=== PATIENT | female | born 1950 | race Caucasian/White ===

== ENCOUNTER 2018-03-22 14:14 | Inpatient (IN) | payer MEDICARE, OTHER ==
[~2018-03-22] VITALS: Ht 157.5 cm; Wt 79.4 kg
[2018-03-22] MEDS ORDERED: VANCOMYCIN IV 200 ML ONE (14:45)
[2018-03-22] MEDS ORDERED: GENTAMICIN SULFATE 80 MG/2 ML VIAL ONE (14:45)
[2018-03-22] MEDS ORDERED: VANCOMYCIN IV 1,000 MG in IV DEXTROSE 5% 250 ML IV ONE (14:45)
[2018-03-22] MEDS ORDERED: GENTAMICIN SULFATE INJ 80 MG in IV DEXTROSE 5% 100 ML IV ONE (14:45)
[2018-03-22] MEDS ORDERED: TOPAMAX PO (15:03)
[2018-03-22] MEDS ORDERED: CALCIUM (15:03)
[2018-03-22] MEDS ORDERED: SERT50TA14 PO (15:03)
[2018-03-22] MEDS ORDERED: CALCITRIOL PO (15:03)
[2018-03-22] MEDS ORDERED: LOMOTIL (15:03)
[2018-03-22] MEDS ORDERED: CROMOLYN SODIUM 4% (15:03)
[2018-03-22] MEDS ORDERED: SYNTHROID PO (15:03)
[2018-03-22] MEDS ORDERED: PEPCID PO (15:03)
[2018-03-22] MEDS ORDERED: QUET25TA3 PO (15:03)
[2018-03-22] MEDS ORDERED: ELIQUIS PO (15:03)
[2018-03-22] MEDS ORDERED: CARBIDOPA/LEVODOPA PO (15:03)
[2018-03-22] MEDS ORDERED: CALCIUM CARBONATE PO (15:03)
[2018-03-22] MEDS ORDERED: POTASSIUM PO (15:03)
[2018-03-22] MEDS ORDERED: MIRAPEX PO (15:03)
[2018-03-22] MEDS ORDERED: ZOCOR PO (15:03)
[2018-03-22] MEDS ORDERED: TOPROL XL PO (15:03)
[2018-03-22] MEDS ORDERED: ABILIFY PO (15:03)
[2018-03-22 15:21] LABS: BASOPHILS # (AUTO) 0.1 K/uL (0.0-8.0); BASOPHILS % (AUTO) 0.7 % (0.0-2.0); EOSINOPHILS # (AUTO) 0.1 K/uL (0.0-0.7); EOSINOPHILS % (AUTO) 0.8 % (0.0-7.0); HEMATOCRIT 35.3 % (31.2-41.9); HEMOGLOBIN 11.8 g/dL (10.9-14.3); LYMPHOCYTES # (AUTO) 2.4 K/uL (20.0-40.0); LYMPHOCYTES % (AUTO) 26.6 % (20.5-51.5); MEAN CORPUSCULAR HEMOGLOBIN 29.4 uug (24.7-32.8); MEAN CORPUSCULAR HGB CONC 33 g/dL (32.3-35.6); MEAN CORPUSCULAR VOLUME 88.2 fL (75.5-95.3); MONOCYTES # (AUTO) 0.8 K/uL (2.0-10.0); MONOCYTES % (AUTO) 9.3 % (0.0-11.0); NEUTROPHILS # (AUTO) 5.7 K/uL (1.8-8.9); NEUTROPHILS % (AUTO) 62.6 % (38.5-71.5); PLATELET COUNT (AUTO) 303 K/uL (179-408); WHITE BLOOD COUNT (AUTO) 9.1 K/uL (3.8-11.8)
[2018-03-22 15:27] LABS: CREATININE 0.9 mg/dL (0.6-1.3); POTASSIUM 3.6 mmol/L (3.5-5.1)
--- NOTE | 2018-03-22 16:40 | NUR ---
Pt trans to m/s floor, NAD noted.
[2018-03-22 16:46] VITALS: BP 114/46
--- NOTE | 2018-03-22 17:23 | NUR ---
67 YEAR OLD FEMALE RECEIVED FROM ER VIA WHEEL CHAIR FOR LEFT EAR CELLULITIS .PT IS [id number] ,SON IS AT BED SIDE CALL LIGHT WITH IN REACH .V/S ARE STABLE , CALLED FOR ADMISSION ORDERS
[2018-03-22] MEDS ORDERED: ONDANSETRON 4 MG/2 ML VIAL IV PRN (18:30)
[2018-03-22] MEDS ORDERED: MAGNESIUM HYDROXIDE 30 ML LIQUID UDC PO PRN (18:30)
--- NOTE | 2018-03-22 18:42 | NUR ---
CLINICAL PHARMACY NOTE:VANCOMYCIN DOSING Request for vancomycin dosing on 67 y/o female 157.48 CM 79.28kg for cellulitis (swelling of left ear) Temp 98.4 BUN 19 Scr 0.9 WBC 9.1 Start Vancomycin 1250mg IVPB q24h estimated trough 12.85. Will order trough prior to 4th dose. Will continue to monitor.
--- NOTE | 2018-03-22 19:20 | NUR ---
RECEIVED PT AWAKE, ALERT AND ORIENTEDX3. PT SHOWS NO SIGNS OF DISTRESS. SON AT BEDSIDE. IV INTACT AND PATENT. SAFETY AND COMFORT PROVIDED. WILL CONTINUE TO MONITOR.
[2018-03-22] MEDS: IV NS 1000 ML 1,000 ML IV PRN (19:49)
[2018-03-22] MEDS: VANCOMYCIN IV 1,250 MG in IV DEXTROSE 5% 500 ML IV SCH (19:49)
[2018-03-22 20:09] VITALS: BP 112/64
[2018-03-22] MEDS ORDERED: ENOXAPARIN SODIUM 40 MG/0.4 ML DISP.SYRIN SQ SCH (21:00)
[2018-03-22] MEDS: ACETAMINOPHEN 325 MG TABLET PO PRN (21:03)
[2018-03-22] MEDS: ZOLPIDEM 5 MG TABLET PO PRN (21:34)
[2018-03-23 04:54] VITALS: BP 111/57
--- NOTE | 2018-03-23 06:18 | NUR ---
PT SLEPT THROUGHOUT THE SHIFT . PRESCRIBED MEDICATION GIVEN AND PT TOLERATED IT WELL. SAFETY AND COMFORT PROVIDED. MEDICATION OF THE PT SENT TO PHARMACY FOR VERIFICATION. ALL NEEDS ARE MET.WILL ENDORSE TO DAYSHIFT NURSE FOR CONTINUITY OF CARE.
[2018-03-23 06:33] LABS: CREATININE 0.9 mg/dL (0.6-1.3); MAGNESIUM 1.7 mg/dL (1.8-2.4); PHOSPHOROUS 4.1 mg/dL (2.5-4.9); POTASSIUM 2.9 mmol/L (3.5-5.1)
[2018-03-23 07:33] LABS: BASOPHILS # (AUTO) 0.1 K/uL (0.0-8.0); BASOPHILS % (AUTO) 0.8 % (0.0-2.0); EOSINOPHILS # (AUTO) 0.1 K/uL (0.0-0.7); EOSINOPHILS % (AUTO) 1.5 % (0.0-7.0); HEMATOCRIT 33.2 % (31.2-41.9); HEMOGLOBIN 11.2 g/dL (10.9-14.3); LYMPHOCYTES # (AUTO) 2.6 K/uL (20.0-40.0); LYMPHOCYTES % (AUTO) 35.5 % (20.5-51.5); MEAN CORPUSCULAR HEMOGLOBIN 29.5 uug (24.7-32.8); MEAN CORPUSCULAR HGB CONC 34 g/dL (32.3-35.6); MEAN CORPUSCULAR VOLUME 87.6 fL (75.5-95.3); MONOCYTES # (AUTO) 0.6 K/uL (2.0-10.0); MONOCYTES % (AUTO) 8.9 % (0.0-11.0); NEUTROPHILS # (AUTO) 3.9 K/uL (1.8-8.9); NEUTROPHILS % (AUTO) 53.3 % (38.5-71.5); PLATELET COUNT (AUTO) 260 K/uL (179-408); RED BLOOD CELL COUNT(AUTO) 3.79 MIL/uL (3.63-4.92); WHITE BLOOD COUNT (AUTO) 7.2 K/uL (3.8-11.8)
--- NOTE | 2018-03-23 09:24 | NUR ---
Clinical pharmacy note-Vancomycin dosing per pharmacy Subjective: To continue Vancomycin dosing on this 67 yo female patient for suspected infection (left ear swelling) Objective: BUN 14 scr 0.9 WBC 9.1 (03/22) Temp 97.5 Ht 157.5cm Wt 79.4kg Assessment/Plan: Will continue same dose of vancomycin 1250mg IVPB q24h for today. 2nd dose due tonight at 1999. Will monitor renal function & adjust the dose if needed. Will follow daily.
[2018-03-23] MEDS ORDERED: POTASSIUM CHLORIDE 20 MEQ TAB.PRT.SR PO ONE (09:30)
[2018-03-23] MEDS ORDERED: APIXABAN 5 MG TABLET PO ONE (10:00)
[2018-03-23] MEDS ORDERED: LEVO200T9 PO (11:42)
[2018-03-23] MEDS ORDERED: POTA10TA15 PO (11:44)
[2018-03-23] MEDS ORDERED: SERT100T PO (11:45)
[2018-03-23 11:49] VITALS: BP 125/55
[2018-03-23] MEDS ORDERED: QUET100T PO (11:49)
[2018-03-23] MEDS ORDERED: QUET50TA PO (11:50)
[2018-03-23] MEDS ORDERED: SIMV40TA5 PO (11:51)
[2018-03-23] MEDS ORDERED: CARB1CAP3 PO (11:55)
[2018-03-23] MEDS ORDERED: FAMO20TA8 PO (11:57)
[2018-03-23] MEDS ORDERED: METO50TA7 PO (11:59)
[2018-03-23] MEDS ORDERED: CALC0.5C11 PO (12:00)
[2018-03-23] MEDS ORDERED: TOPI50TA PO (12:01)
[2018-03-23] MEDS ORDERED: PRAM1TAB7 PO (12:03)
[2018-03-23] MEDS ORDERED: ARIP10TA9 PO (12:04)
[2018-03-23] MEDS ORDERED: APIX5TAB PO (12:05)
[2018-03-23] MEDS ORDERED: CALC1TAB30 PO (12:10)
[2018-03-23] MEDS ORDERED: MAGNESIUM OXIDE 400 MG TABLET PO ONE (12:45)
[2018-03-23] MEDS ORDERED: VANCOMYCIN IV 1 G in PREMIXED 0 EACH IV SCH (14:00)
[2018-03-23] MEDS: IV NS 1000 ML 1,000 ML IV PRN (14:06)
[2018-03-23 15:57] VITALS: BP 125/84
[2018-03-23 19:00] VITALS: BP 110/63
[2018-03-23] MEDS: VANCOMYCIN IV 1,250 MG in IV DEXTROSE 5% 500 ML IV SCH (19:20)
--- NOTE | 2018-03-23 19:20 | NUR ---
RECEIVED PT AWAKE, ALERT, AND ORIENTEDX3. PT SHOWS NO SIGNS OF DISTRESS. IV INTACT AND PATENT. CALL LIGHT WITHIN REACH. SAFETY AND COMFORT PROVIDED. WILL CONTINUE TO MONITOR.
[2018-03-23] MEDS: ZOLPIDEM 5 MG TABLET PO PRN (22:04)
[2018-03-24 04:00] VITALS: BP 125/82
--- NOTE | 2018-03-24 06:13 | NUR ---
PT SLEPT THROUGHOUT THE SHIFT. PT SHOWS NO SIGNS OF DISTRESS. IV INTACT. PRESCRIBED MEDICATION GIVEN AND PT TOLERATED IT WELL. CALL LIGHT WITHIN REACH. SAFETY AND COMFORT PROVIDED.WILL ENDORSE ACCORDINGLY TO DAYSHIFT NURSE FOR CONTINUITY OF CARE.
[2018-03-24 06:38] LABS: CREATININE 0.7 mg/dL (0.6-1.3); MAGNESIUM 1.6 mg/dL (1.8-2.4); POTASSIUM 3.1 mmol/L (3.5-5.1)
[2018-03-24] MEDS ORDERED: POTASSIUM CHLORIDE 20 MEQ TAB.PRT.SR PO ONE (10:00)
[2018-03-24] MEDS ORDERED: HOME MED MISCELLANEOUS XX SCH (10:00)
[2018-03-24] MEDS ORDERED: SERTRALINE HCL 100 MG TABLET PO SCH (10:00)
[2018-03-24] MEDS: IV NS 1000 ML 1,000 ML IV PRN (10:22)
[2018-03-24] MEDS: PRAMIPEXOLE 1 MG TABLET PO SCH ×3 (11:03→16:23)
[2018-03-24] MEDS: FAMOTIDINE 20 MG TABLET PO SCH ×2 (11:04→16:23)
[2018-03-24] MEDS: RYTARY PO SCH ×2 (11:04→14:08)
[2018-03-24] MEDS: TOPIRAMATE 25 MG TABLET PO SCH ×2 (11:04→20:04)
[2018-03-24] MEDS: LEVOTHYROXINE SODIUM 200 MCG TABLET PO SCH (11:07)
[2018-03-24 11:52] VITALS: BP 101/55
[2018-03-24] MEDS: CALCIUM CARB/VITAMIN D 500MG-200UNITS TABLET PO SCH ×2 (12:11→16:23)
[2018-03-24] MEDS: LINEZOLID IV 600 MG in PREMIXED 1 EACH IV SCH (14:02)
[2018-03-24] MEDS: PIPERACILLIN/TAZOBACTAM/D5W 3.375 G in PREMIXED 1 EACH IV SCH ×2 (14:02→21:05)
[2018-03-24] MEDS: MAGNESIUM SULFATE/D5W 100 ML IV SCH ×2 (14:43→16:10)
[2018-03-24 16:00] VITALS: BP 101/56
--- NOTE | 2018-03-24 20:00 | NUR ---
Received pt sitting up in bed, alert and oriented x 2 with family at bedside, in no acute distress. Pt left ear appears to have swelling and redness, denies discomfort and difficulty hearing at this time. Safe environment implemented. Bed alarm on. Call light within reach.
[2018-03-24] MEDS: ARIPIPRAZOLE 10 MG TABLET PO SCH (20:03)
[2018-03-24] MEDS: SIMVASTATIN 40 MG TABLET PO SCH (20:04)
[2018-03-24] MEDS: QUETIAPINE FUMARATE 100 MG TABLET PO SCH (20:04)
[2018-03-24 20:18] VITALS: BP 93/49
[2018-03-25] MEDS: LINEZOLID IV 600 MG in PREMIXED 1 EACH IV SCH ×2 (00:29→12:50)
[2018-03-25] MEDS: ACETAMINOPHEN 325 MG TABLET PO PRN (04:20)
[2018-03-25] MEDS: RYTARY PO SCH ×3 (05:41→14:16)
[2018-03-25] MEDS: PIPERACILLIN/TAZOBACTAM/D5W 3.375 G in PREMIXED 1 EACH IV SCH ×3 (05:41→21:48)
[2018-03-25 06:07] LABS: BASOPHILS % (AUTO) 0.5 % (0.0-2.0); EOSINOPHILS # (AUTO) 0.1 K/uL (0.0-0.7); EOSINOPHILS % (AUTO) 1.5 % (0.0-7.0); HEMATOCRIT 30.6 % (31.2-41.9); HEMOGLOBIN 10.4 g/dL (10.9-14.3); LYMPHOCYTES # (AUTO) 2.1 K/uL (20.0-40.0); LYMPHOCYTES % (AUTO) 28.4 % (20.5-51.5); MEAN CORPUSCULAR HEMOGLOBIN 29.5 uug (24.7-32.8); MEAN CORPUSCULAR HGB CONC 34 g/dL (32.3-35.6); MEAN CORPUSCULAR VOLUME 86.5 fL (75.5-95.3); MONOCYTES # (AUTO) 0.6 K/uL (2.0-10.0); MONOCYTES % (AUTO) 8.6 % (0.0-11.0); NEUTROPHILS # (AUTO) 4.5 K/uL (1.8-8.9); PLATELET COUNT (AUTO) 241 K/uL (179-408); RED BLOOD CELL COUNT(AUTO) 3.54 MIL/uL (3.63-4.92); WHITE BLOOD COUNT (AUTO) 7.3 K/uL (3.8-11.8)
[2018-03-25 06:17] LABS: CREATININE 0.9 mg/dL (0.6-1.3); PHOSPHOROUS 3.7 mg/dL (2.5-4.9); POTASSIUM 2.9 mmol/L (3.5-5.1)
[2018-03-25] MEDS: LEVOTHYROXINE SODIUM 200 MCG TABLET PO SCH (06:51)
[2018-03-25 06:59] VITALS: BP 100/53
--- NOTE | 2018-03-25 07:26 | NUR ---
No changes throughout the night. Safe environment implemented. Call light within reach
[2018-03-25] MEDS: METOPROLOL SUCCINATE XL 50 MG TAB.SR.24H PO SCH (09:00)
[2018-03-25] MEDS: PRAMIPEXOLE 1 MG TABLET PO SCH ×3 (09:22→16:30)
[2018-03-25] MEDS: CALCIUM CARB/VITAMIN D 500MG-200UNITS TABLET PO SCH ×3 (09:22→16:30)
[2018-03-25] MEDS: FAMOTIDINE 20 MG TABLET PO SCH ×2 (09:22→16:30)
[2018-03-25] MEDS: TOPIRAMATE 25 MG TABLET PO SCH ×2 (10:10→20:46)
--- NOTE | 2018-03-25 10:51 | NUR ---
Patient is alert and sleepy during rounds. Potassium 2.9 lab result. BP sitting L-79/42 R- 69/37 lying 69/38. HAT LACER Rukhsana made aware, ordered 1k bolus of NS. IV site intact and patent. will continue monitor
[2018-03-25] MEDS ORDERED: IV NS 1000 ML 1,000 ML IV ONE (11:00)
[2018-03-25 11:09] VITALS: BP 75/42
[2018-03-25] MEDS ORDERED: POTASSIUM CHLORIDE 20 MEQ TAB.PRT.SR PO ONE ×2 (12:15→14:15)
--- NOTE | 2018-03-25 12:34 | NUR ---
Sindy Milian ordered potassium 60meq PO one time for potassium 2.9 lab value. will continue monitor
--- NOTE | 2018-03-25 13:15 | NUR ---
NEW ORDERS PER NEWSPAPER PHOTO EDITOR: STAT CT OF THE HEAD W/WO CONTRAST AND STAT CT OF THE NECK W/WO CONTRAST. DX: CELLULITIS OF THE FACE. CONSENT OBTAINED BY VADIM ORDAZ, LAB AWARE.
[2018-03-25 15:07] VITALS: BP 100/95
[2018-03-25] MEDS ORDERED: IOHEXOL 300MG/ML 100 ML INFUS..BTL ONE (15:30)
[2018-03-25] MEDS ORDERED: IV NORMAL SALINE 250 ML IV ONE (15:30)
[2018-03-25] MEDS ORDERED: NORMAL SALINE FLUSH 10 ML DISP.SYRIN ONE (15:30)
[2018-03-25] MEDS ORDERED: SWABABLE VALVE TRANSFER SET EA MC ONE (15:30)
[2018-03-25] MEDS: IV NS 1000 ML 1,000 ML IV PRN (17:44)
--- NOTE | 2018-03-25 17:44 | NUR ---
IV site right wrist infiltrated. Applied cold and warm compress to the site. Reinserted to left wrist, intact and patent. will continue monitor
--- NOTE | 2018-03-25 19:30 | NUR ---
RECEIVED PT AWAKE, ALERT AND ORIENTEDX3. PT SHOWS NO SIGNS OF DISTRESS. IV INTACT AND PATENT. CALL LIGHT WITHIN REACH. SAFETY AND COMFORT PROVIDED. WILL CONTINUE TO MONITOR.
[2018-03-25 20:39] VITALS: BP 105/65
[2018-03-25] MEDS: SIMVASTATIN 40 MG TABLET PO SCH (20:46)
[2018-03-25] MEDS: ARIPIPRAZOLE 10 MG TABLET PO SCH (20:46)
[2018-03-25] MEDS: QUETIAPINE FUMARATE 100 MG TABLET PO SCH (20:46)
[2018-03-25] MEDS: ZOLPIDEM 5 MG TABLET PO PRN (21:59)
[2018-03-26] MEDS: LINEZOLID IV 600 MG in PREMIXED 1 EACH IV SCH ×2 (00:21→13:30)
[2018-03-26 04:00] VITALS: BP 110/59
[2018-03-26] MEDS: PIPERACILLIN/TAZOBACTAM/D5W 3.375 G in PREMIXED 1 EACH IV SCH ×3 (05:01→21:20)
[2018-03-26] MEDS: RYTARY PO SCH ×3 (06:11→13:38)
[2018-03-26] MEDS: LEVOTHYROXINE SODIUM 200 MCG TABLET PO SCH (06:11)
--- NOTE | 2018-03-26 06:36 | NUR ---
PT SLEPT THROUGHOUT THE SHIFT. PT SHOWS NO SIGNS OF DISTRESS. IV INTACT AND PATENT.PRESCRIBED MEDICATION GIVEN AND PT TOLERATED IT WELL. SAFETY AND COMFORT PROVIDED. ALL NEEDS ARE MET. WILL ENDORSE ACCORDINGLY TO INCOMING NURSE FOR CONTINUITY OF CARE.
[2018-03-26 06:45] LABS: BASOPHILS % (AUTO) 0.6 % (0.0-2.0); EOSINOPHILS # (AUTO) 0.1 K/uL (0.0-0.7); EOSINOPHILS % (AUTO) 1.1 % (0.0-7.0); HEMATOCRIT 28.4 % (31.2-41.9); LYMPHOCYTES # (AUTO) 1.6 K/uL (20.0-40.0); LYMPHOCYTES % (AUTO) 20.1 % (20.5-51.5); MEAN CORPUSCULAR HEMOGLOBIN 29.8 uug (24.7-32.8); MEAN CORPUSCULAR HGB CONC 35 g/dL (32.3-35.6); MEAN CORPUSCULAR VOLUME 84.3 fL (75.5-95.3); MONOCYTES # (AUTO) 0.6 K/uL (2.0-10.0); MONOCYTES % (AUTO) 7.8 % (0.0-11.0); NEUTROPHILS # (AUTO) 5.6 K/uL (1.8-8.9); NEUTROPHILS % (AUTO) 70.4 % (38.5-71.5); PLATELET COUNT (AUTO) 252 K/uL (179-408); RED BLOOD CELL COUNT(AUTO) 3.37 MIL/uL (3.63-4.92); WHITE BLOOD COUNT (AUTO) 7.9 K/uL (3.8-11.8)
--- NOTE | 2018-03-26 07:15 | NUR ---
RN notes: Received patient in bed, awake, alert and oriented x2, in no acute distress. Denies chest pain or SOB. IV site on patent, IV fluids running at 60cc/hr. Fall precaution in place. Will continue to monitor
[2018-03-26 07:23] LABS: CREATININE 0.8 mg/dL (0.6-1.3); MAGNESIUM 1.6 mg/dL (1.8-2.4); PHOSPHOROUS 3.8 mg/dL (2.5-4.9); POTASSIUM 3.2 mmol/L (3.5-5.1)
--- NOTE | 2018-03-26 08:00 | NUR ---
RN notes: Received a call from JOSE Milian, patient was noted with Tachycardia at 129 at 0400. Upon assessment, patient is awake, alert and oriented x2, in no acute distress. Patient denies chest pain or SOB. History of A-fib noted. Bilateral hand grasps equal and strong. PERRLA. GA was rechedked manually via palpation at this time. Noted at 90bpm, radial pulse. Afebrile. Denies pain. Skin intact. Cellulitis noted on the left ear down to her side of neck. JOSE Milian made aware. Received new orders to transfer patient to Telemetry. CN made aware. equipment monitor phototypesetting was placed, noted with Rapid A-fib at 100-108 HR. Will continue to monitor
--- NOTE | 2018-03-26 08:00 | NUR ---
RN notes: Patient noted with elevated BP at 210/79 at this time. Patient is awake, alert and oriented x1, verbally responsive. Patient noted to be confused at baseline. Able to do ROM on all 4 extremities. Bilateral hand grasps equal and strong. PERRLA. Patient denies chest pain or SOB at this time. Speech is clear. JOSE Milian made aware. New orders received, noted and carried out. Will continue to monitor Addendum: 03/26/18 at 1409 by MARCY GRESHAM RN Wrong patient
[2018-03-26] MEDS ORDERED: POTASSIUM CHLORIDE 20 MEQ TAB.PRT.SR PO ONE (08:15)
[2018-03-26] MEDS: METOPROLOL SUCCINATE XL 50 MG TAB.SR.24H PO SCH (09:00)
[2018-03-26] MEDS: TOPIRAMATE 25 MG TABLET PO SCH ×2 (09:05→20:43)
[2018-03-26] MEDS: FAMOTIDINE 20 MG TABLET PO SCH ×2 (09:05→17:48)
[2018-03-26] MEDS: CALCIUM CARB/VITAMIN D 500MG-200UNITS TABLET PO SCH ×3 (09:05→17:49)
[2018-03-26] MEDS: PRAMIPEXOLE 1 MG TABLET PO SCH ×3 (09:05→17:48)
[2018-03-26] MEDS: MAGNESIUM SULFATE/D5W 100 ML IV SCH ×2 (10:52→11:59)
[2018-03-26 11:14] VITALS: BP 108/62
[2018-03-26 15:08] VITALS: BP 101/56
[2018-03-26] MEDS: IV NS 1000 ML 1,000 ML IV PRN (17:50)
--- NOTE | 2018-03-26 18:39 | NUR ---
RN notes: Patient is alert and oriented x2-3, forgetful, in no acute distress. Denies chest pain or SOB at this time. Turned and repositioned every 2 hours. Kept clean and dry. No acute change of condition noted. All needs attended and met. Will continue to monitor
--- NOTE | 2018-03-26 19:55 | NUR ---
RECEIVED PATIENT IN BED ALERT ORIENTED, NO SOB NO CHEST PAIN RYTHM RAPID AFIB MD AWARE WITH ORDER, PATIENT WITH LEFT EAR CELLULITIS, CONT ON PAIN MANAGEMENT, CALL LIGHT WITHIN REACH. CONT TO MONITOR.
[2018-03-26] MEDS: SIMVASTATIN 40 MG TABLET PO SCH (20:24)
[2018-03-26] MEDS: ARIPIPRAZOLE 10 MG TABLET PO SCH (20:24)
[2018-03-26] MEDS: QUETIAPINE FUMARATE 100 MG TABLET PO SCH (20:24)
[2018-03-26] MEDS: ACETAMINOPHEN 325 MG TABLET PO PRN (20:42)
[2018-03-26 21:05] VITALS: BP 134/62
--- NOTE | 2018-03-27 | NUR ---
PATIENT AWAKE, NO SOB NO CHEST PAIN, RYTHM AFIB FROM 90 TP 102, NO COMPLAIN OF PAIN, NO COMPLAIN OF INSOMNIA AT THIS TIME. CALL LIGHT WITHIN REACH.
[2018-03-27 00:47] VITALS: BP 102/62
[2018-03-27] MEDS: LINEZOLID IV 600 MG in PREMIXED 1 EACH IV SCH ×2 (00:47→12:29)
[2018-03-27 05:19] VITALS: BP 100/57
[2018-03-27] MEDS: RYTARY PO SCH ×3 (05:43→13:58)
[2018-03-27] MEDS: PIPERACILLIN/TAZOBACTAM/D5W 3.375 G in PREMIXED 1 EACH IV SCH ×3 (05:48→21:23)
[2018-03-27] MEDS: LEVOTHYROXINE SODIUM 200 MCG TABLET PO SCH (06:07)
[2018-03-27 06:29] LABS: CREATININE 0.9 mg/dL (0.6-1.3); MAGNESIUM 1.9 mg/dL (1.8-2.4); PHOSPHOROUS 5.2 mg/dL (2.5-4.9); POTASSIUM 3.3 mmol/L (3.5-5.1)
--- NOTE | 2018-03-27 06:51 | NUR ---
PATIENT SLEPT MOST OF THE NIGHT NO SOB NO CHEST PAIN, NO COMPLAIN OF PAIN, RHYTHM ATRIL FIB AT THIS TIME. TURN AND REPOSITION, KEPT COMFORTABLE, CALL LIGHT WITHIN REACH, LEFT EAR STILL SWOLLEN, KEPT OFF PRESSURE, CONT TO MONITOR.
[2018-03-27 07:09] LABS: BASOPHILS % (AUTO) 0.7 % (0.0-2.0); EOSINOPHILS # (AUTO) 0.1 K/uL (0.0-0.7); EOSINOPHILS % (AUTO) 2.1 % (0.0-7.0); HEMATOCRIT 31.2 % (31.2-41.9); HEMOGLOBIN 10.6 g/dL (10.9-14.3); LYMPHOCYTES # (AUTO) 1.7 K/uL (20.0-40.0); LYMPHOCYTES % (AUTO) 31.6 % (20.5-51.5); MEAN CORPUSCULAR HEMOGLOBIN 29.2 uug (24.7-32.8); MEAN CORPUSCULAR HGB CONC 34 g/dL (32.3-35.6); MEAN CORPUSCULAR VOLUME 85.9 fL (75.5-95.3); MONOCYTES # (AUTO) 0.5 K/uL (2.0-10.0); MONOCYTES % (AUTO) 8.5 % (0.0-11.0); NEUTROPHILS % (AUTO) 57.1 % (38.5-71.5); PLATELET COUNT (AUTO) 275 K/uL (179-408); RED BLOOD CELL COUNT(AUTO) 3.63 MIL/uL (3.63-4.92)
[2018-03-27 07:18] LABS: WHITE BLOOD COUNT (AUTO) 5.3 K/uL (3.8-11.8)
--- NOTE | 2018-03-27 08:00 | NUR ---
awake cooperate well no sob or pain eat breakfast well on fall PRECAUTION BED ALARM ON AND CALL LIGHT IN REACH
[2018-03-27] MEDS: FAMOTIDINE 20 MG TABLET PO SCH ×2 (08:14→16:47)
[2018-03-27] MEDS: CALCIUM CARB/VITAMIN D 500MG-200UNITS TABLET PO SCH ×3 (08:14→16:47)
[2018-03-27] MEDS: PRAMIPEXOLE 1 MG TABLET PO SCH ×3 (08:14→16:46)
[2018-03-27] MEDS: METOPROLOL SUCCINATE XL 50 MG TAB.SR.24H PO SCH (08:23)
[2018-03-27] MEDS: TOPIRAMATE 25 MG TABLET PO SCH ×2 (08:23→20:52)
--- NOTE | 2018-03-27 09:30 | NUR ---
PT EXCERCISE IN BED C/O DIZZINESS UNABLE TO AMBULATE AT THIS TIME RESTING WELL FAMILY AT BEDSIDE
--- NOTE | 2018-03-27 11:30 | NUR ---
TELE STABLE A-FIB UNDER CONTROL AND D/C MONITORING TELE AT THIS TIME
[2018-03-27 11:48] VITALS: BP 105/59
[2018-03-27] MEDS: IV NS 1000 ML 1,000 ML IV PRN (12:30)
--- NOTE | 2018-03-27 13:00 | NUR ---
EAT LUNCH WELL ON FALL AND ASPIRATION PRECAUTION FLATLOCK SEWING MACHINE OPERATOR ETELVINA SEE PATIENT AND LAB RESULT NEW ORDER K DUR GIVEN ORDER
[2018-03-27] MEDS ORDERED: POTASSIUM CHLORIDE 20 MEQ TAB.PRT.SR PO ONE (14:45)
[2018-03-27 15:13] VITALS: BP 103/61
--- NOTE | 2018-03-27 17:30 | NUR ---
STABLE CONDITION NO ACUTE DISTRESS ,PAIN UNDER CONTROL CONTINUE IVF SAFETY MEASURE PROVIDED BED ALARM ON AND CALL LIGHT IN REACH
--- NOTE | 2018-03-27 19:20 | NUR ---
RECEIVED PT AWAKE, ALERT, ORIENTEDX4. SON AT BEDSIDE.PT SHOWS NO SIGNS OF DISTRESS. PT IV INTACT. CALL LIGHT WITHIN REACH. SAFETY AND COMFORT PROVIDED.SAFETY AND COMFORT PROVIDED. WILL CONTINUE TO MONITOR.
[2018-03-27 20:34] VITALS: BP 121/67
[2018-03-27] MEDS: QUETIAPINE FUMARATE 100 MG TABLET PO SCH (20:52)
[2018-03-27] MEDS: ARIPIPRAZOLE 10 MG TABLET PO SCH (20:52)
[2018-03-27] MEDS: SIMVASTATIN 40 MG TABLET PO SCH (20:52)
[2018-03-27] MEDS: LINEZOLID 600 MG TABLET PO SCH (21:23)
[2018-03-28] MEDS: ZOLPIDEM 5 MG TABLET PO PRN (00:57)
[2018-03-28 04:00] VITALS: BP 116/69
[2018-03-28] MEDS: RYTARY PO SCH ×3 (05:27→13:45)
[2018-03-28] MEDS: PIPERACILLIN/TAZOBACTAM/D5W 3.375 G in PREMIXED 1 EACH IV SCH ×3 (05:27→21:22)
[2018-03-28] MEDS: IV NS 1000 ML 1,000 ML IV PRN ×2 (05:45→23:44)
[2018-03-28] MEDS: LEVOTHYROXINE SODIUM 200 MCG TABLET PO SCH (06:15)
--- NOTE | 2018-03-28 06:23 | NUR ---
PT SLEPT THROUGHOUT THE SHIFT. PT SHOWS NO SIGNS OF DISTRESS. PRESCRIBED MEDICATION GIVEN AND PT TOLERATED IT WELL. PT HAD I BM ON MY SHIFT. SAFETY AND COMFORT PROVIDED.ALL NEEDS ARE MET.WILL ENDORSE TO DAYSHIFT NURSE FOR CONTINUITY OF CARE.
[2018-03-28 07:33] LABS: CREATININE 0.9 mg/dL (0.6-1.3); POTASSIUM 3.4 mmol/L (3.5-5.1)
--- NOTE | 2018-03-28 08:00 | NUR ---
Pt alert and cooperative. Plan of care discussed and reviewed with patient. IV site on left wrist 22 gauge intact and patent. Fluids 60 cc/hr. Patient shows no signs of acute distress at this time. Safety precautions implemented. Call light within reach. Will continue to monitor
[2018-03-28] MEDS: PRAMIPEXOLE 1 MG TABLET PO SCH ×3 (08:15→16:28)
[2018-03-28] MEDS: CALCIUM CARB/VITAMIN D 500MG-200UNITS TABLET PO SCH ×3 (08:15→16:28)
[2018-03-28] MEDS: FAMOTIDINE 20 MG TABLET PO SCH ×2 (08:15→16:28)
[2018-03-28] MEDS: TOPIRAMATE 25 MG TABLET PO SCH ×2 (08:15→20:41)
[2018-03-28] MEDS: LINEZOLID 600 MG TABLET PO SCH ×2 (08:16→20:42)
[2018-03-28] MEDS: METOPROLOL SUCCINATE XL 50 MG TAB.SR.24H PO SCH (08:16)
[2018-03-28] MEDS ORDERED: POTASSIUM CHLORIDE 20 MEQ TAB.PRT.SR PO ONE (10:15)
[2018-03-28] MEDS ORDERED: CALCIUM CARBONATE 500 MG TABLET PO SCH (10:15)
[2018-03-28 11:24] VITALS: BP 113/55
[2018-03-28 15:05] VITALS: BP 110/74
--- NOTE | 2018-03-28 18:15 | NUR ---
PT SITTING COMFORTABLY IN BED, AWAKE AND COOPERATIVE. IV INTACT WITH NO SIGNS OF SWELLING OR REDNESS. TOLERATED PRESCRIBED MEDICATIONS AND FLUIDS WELL. PATIENT HAS NO COMPLAINTS AT THIS TIME. SAFETY PRECAUTIONS, COMFORT MEASURES IMPLEMENTED. ALL NEEDS ARE MET. WILL CONTINUE TO MONITOR.
--- NOTE | 2018-03-28 19:30 | NUR ---
Patient in stable condition at start of shift. A/Ox4 & able to make her needs known. Pertinent assessment completed. Vital signs within normal limits at start of shift. On ATB therapy for cellulitis of the left ear. Left ear noted to be swollen & slightly red. Call light within reach. Will continue to monitor through shift.
[2018-03-28 20:21] VITALS: BP 127/66
[2018-03-28] MEDS: SIMVASTATIN 40 MG TABLET PO SCH (20:41)
[2018-03-28] MEDS: ARIPIPRAZOLE 10 MG TABLET PO SCH (20:41)
[2018-03-28] MEDS: QUETIAPINE FUMARATE 100 MG TABLET PO SCH (20:41)
[2018-03-29 04:00] VITALS: BP 120/66
[2018-03-29] MEDS: PIPERACILLIN/TAZOBACTAM/D5W 3.375 G in PREMIXED 1 EACH IV SCH ×2 (05:27→13:59)
[2018-03-29] MEDS: RYTARY PO SCH ×3 (06:08→14:01)
[2018-03-29] MEDS: LEVOTHYROXINE SODIUM 200 MCG TABLET PO SCH (06:08)
--- NOTE | 2018-03-29 06:51 | NUR ---
Patient slept well during the shift. All needs attended to. Medications administered per MD order. Compliant with care. Vital signs WNL. Safety & comfort measures provided. Call light in reach. Will endorse to day shift nurse.
[2018-03-29 07:05] LABS: BASOPHILS % (AUTO) 0.7 % (0.0-2.0); EOSINOPHILS # (AUTO) 0.1 K/uL (0.0-0.7); HEMOGLOBIN 11.1 g/dL (10.9-14.3); LYMPHOCYTES # (AUTO) 1.4 K/uL (20.0-40.0); LYMPHOCYTES % (AUTO) 19.8 % (20.5-51.5); MEAN CORPUSCULAR HEMOGLOBIN 29.3 uug (24.7-32.8); MEAN CORPUSCULAR HGB CONC 34 g/dL (32.3-35.6); MEAN CORPUSCULAR VOLUME 87.1 fL (75.5-95.3); MONOCYTES # (AUTO) 0.4 K/uL (2.0-10.0); MONOCYTES % (AUTO) 6.4 % (0.0-11.0); NEUTROPHILS % (AUTO) 72.1 % (38.5-71.5); PLATELET COUNT (AUTO) 286 K/uL (179-408); RED BLOOD CELL COUNT(AUTO) 3.79 MIL/uL (3.63-4.92)
[2018-03-29 07:08] LABS: CREATININE 0.9 mg/dL (0.6-1.3); POTASSIUM 3.2 mmol/L (3.5-5.1)
--- NOTE | 2018-03-29 07:15 | NUR ---
RECEIVED PATIENT ON BED ASLEEP. NO ACUTE DISTRESS NOTED. APPEARS TO BE COMFORTABLE. IV ACCESS ON LEFT WRIST #22 INTACT AND PATENT RUNNING NS @60 CC/HR COMFORT MEASURES PROVIDED. CALL LIGHT WITHIN REACH. WILL CONTINUE TO MONITOR CLOSELY.
[2018-03-29] MEDS: TOPIRAMATE 25 MG TABLET PO SCH (08:10)
[2018-03-29] MEDS: FAMOTIDINE 20 MG TABLET PO SCH ×2 (08:10→17:01)
[2018-03-29] MEDS: PRAMIPEXOLE 1 MG TABLET PO SCH ×3 (08:10→17:01)
[2018-03-29] MEDS: LINEZOLID 600 MG TABLET PO SCH (08:10)
[2018-03-29] MEDS: CALCIUM CARB/VITAMIN D 500MG-200UNITS TABLET PO SCH ×3 (08:10→17:01)
[2018-03-29] MEDS: METOPROLOL SUCCINATE XL 50 MG TAB.SR.24H PO SCH (08:11)
[2018-03-29] MEDS ORDERED: POTASSIUM CHLORIDE 20 MEQ TAB.PRT.SR PO ONE (08:45)
[2018-03-29 11:06] VITALS: BP 118/76
[2018-03-29] MEDS ORDERED: LINE600T33 PO (11:08)
[2018-03-29] MEDS ORDERED: PIPE3.379 IV (11:08)
[2018-03-29 15:16] VITALS: BP 114/75
--- NOTE | 2018-03-29 18:30 | NUR ---
PATIENT DISCHARGED TO [facility] IN STABLE CONDITION. REPORT CALLED TO RAUL CARDOSO, AND REQUESTED TO LEAVE IV ACCESS ON LEFT WRIST INSERTED. DISCHARGE PAPERS AND INSTRUCTIONS GIVEN AND EXPLAINED TO PATIENT. LEFT HOSPITAL VIA AMBULANCE ACCOMPANIED BY 2 PAD CUTTER.
== END 2018-03-29 19:00 | DRG 154 ==
LOC: ER 14:18 → MED 16:06 → TELE 03-26 08:55 → MED 03-27 11:30
PROVIDERS: ADMIT Nurse Practitioner Acute Care; ATTEND Nurse Practitioner Acute Care
DX: H60.12 Cellulitis of left external ear (principal); R53.2 Functional quadriplegia; D68.59 Other primary thrombophilia; L03.221 Cellulitis of neck; J98.11 Atelectasis; G20 Parkinson's disease; Z86.14 Personal history of Methicillin resistant Staphylococcus aureus infection; J47.9 Bronchiectasis, uncomplicated; I48.91 Unspecified atrial fibrillation; Z79.01 Long term (current) use of anticoagulants; E66.01 Morbid (severe) obesity due to excess calories; Z68.32 Body mass index [BMI] 32.0-32.9, adult; Z86.73 Personal history of transient ischemic attack (TIA), and cerebral infarction without residual deficits; E87.6 Hypokalemia; E83.42 Hypomagnesemia; D64.9 Anemia, unspecified; R79.89 Other specified abnormal findings of blood chemistry; I72.9 Aneurysm of unspecified site
CPT/HCPCS: 36415; 70470; 71045; 83605; 83735; 84100; 85025; 87040; 93005; 97110; 97112; 97116; 97530; A4663; J1580; J1650; J2020; J2543; J3370; J3475; J3490; J7030; J7050; J7060; Q9967

== ENCOUNTER 2018-07-15 15:38 | Inpatient (IN) | payer MEDICARE, MEDICAID ==
[~2018-07-15] VITALS: Ht 165.1 cm; Wt 81.6 kg
[~2018-07-15 15:38] MED LIST: APIX5TAB PO; ARIP10TA9 PO; CALC0.5C11 PO; CALC1TAB30 PO; CARB1CAP3 PO; FAMO20TA8 PO; LEVO200T9 PO; LINE600T15 PO; METO50TA7 PO; PIPE3.379 IV; POTA10TA15 PO; PRAM1TAB7 PO; QUET100T PO; SERT100T PO; SIMV40TA5 PO; TOPI50TA PO
[2018-07-15] MEDS ORDERED: IV NORMAL SALINE 1000 ML BAG IV ONE (16:00)
[2018-07-15 16:13] LABS: BASOPHILS % (AUTO) 0.3 % (0.0-2.0); HEMATOCRIT 35.9 % (31.2-41.9); HEMOGLOBIN 12.1 g/dL (10.9-14.3); LYMPHOCYTES # (AUTO) 1.3 K/uL (20.0-40.0); LYMPHOCYTES % (AUTO) 8.4 % (20.5-51.5); MEAN CORPUSCULAR HEMOGLOBIN 29.8 uug (24.7-32.8); MEAN CORPUSCULAR HGB CONC 34 g/dL (32.3-35.6); MEAN CORPUSCULAR VOLUME 88.8 fL (75.5-95.3); MONOCYTES # (AUTO) 0.7 K/uL (2.0-10.0); MONOCYTES % (AUTO) 4.6 % (0.0-11.0); NEUTROPHILS # (AUTO) 13.8 K/uL (1.8-8.9); NEUTROPHILS % (AUTO) 86.7 % (38.5-71.5); PLATELET COUNT (AUTO) 220 K/uL (179-408); RED BLOOD CELL COUNT(AUTO) 4.04 MIL/uL (3.63-4.92); WHITE BLOOD COUNT (AUTO) 15.9 K/uL (3.8-11.8)
[2018-07-15 16:22] LABS: POTASSIUM 2.9 mmol/L (3.5-5.1)
[2018-07-15 16:35] LABS: *BILIRUBIN,URIN NEGATIVE (NEGATIVE); *BLOOD, URINE NEGATIVE (NEGATIVE); *CLARITY,URINE CLEAR (CLEAR); *COLOR,URINE YELLOW (YELLOW); *KETONES,URINE 1+ (NEGATIVE); *UROBILINOGEN,URINE 0.2 E.U./dl (NORMAL); LEUKOCYTE ESTERASE ,URINE NEGATIVE (NEGATIVE); NITRITE, URINE NEGATIVE (NEGATIVE); PH,URINE 5.5 (5.0-8.0); UGLUCOSE NEGATIVE (NEGATIVE)
[2018-07-15 16:39] LABS: BACTERIA,URINE RARE /HPF (NONE SEEN); SQUAMOUS EPITHELIAL CELL,UR FEW /HPF (NONE SEEN)
[2018-07-15 16:42] LABS: BILIRUBIN,DIRECT 0.2 mg/dL (0.0-0.2); BILIRUBIN,TOTAL 0.6 mg/dL (0.2-1.0); TOTAL PROTEIN, SERUM 8.5 g/dL (6.4-8.2)
[2018-07-15] MEDS ORDERED: POTASSIUM CHLORIDE 20 MEQ TAB.PRT.SR PO ONE (16:45)
[2018-07-15] MEDS ORDERED: AMIODARONE HCL IV ONE (16:45)
[2018-07-15] MEDS ORDERED: DEXTROSE 5% IV ONE (16:45)
[2018-07-15] MEDS ORDERED: AMIODARONE HCL 150 MG/3 ML VIAL IV ONE ×3 (16:53→20:21)
[2018-07-15] MEDS ORDERED: POTASSIUM CHLORIDE 20 MEQ TAB.PRT.SR ONE (16:53)
--- NOTE | 2018-07-15 18:04 | NUR ---
PT RESTING, AROUSABLE, NO SIGN OF DISTRESS. PT SON AT BEDSIDE.
--- NOTE | 2018-07-15 19:03 | NUR ---
TRANSFERED PT TO FLOOR IN STABLE CONDITION.
[2018-07-15 19:26] VITALS: BP 90/55
--- NOTE | 2018-07-15 19:30 | NUR ---
Received patient from ED via gurney accompanied by ED RN. Patient alert and oriented x 3, with oxygen support at 3lpm via nasal cannula, not in respiratory distress. With IV access at right antecubital vein to ongoing drip of amiodarone 360mg + 500ml D5w at 84.34mls/hr with in-line micron filter. Patient has no complaints at the moment. Patient oriented to unit. bed in low position, side rails up x 2, call light within reach. Initial vital signs 90/55, 107, 19, 96%, 99F. will closely monitor. Noise and lights subdued.
[2018-07-15] MEDS ORDERED: ONDANSETRON 4 MG/2 ML VIAL IV PRN (19:45)
[2018-07-15] MEDS ORDERED: MAGNESIUM HYDROXIDE 30 ML LIQUID UDC PO PRN (19:45)
[2018-07-15] MEDS ORDERED: MORPHINE SULFATE 4 MG/1 ML DISP.SYRIN IV PRN (19:45)
[2018-07-15] MEDS ORDERED: ENOXAPARIN SODIUM 80 MG/0.8 ML DISP.SYRIN SQ ONE (19:45)
[2018-07-15] MEDS ORDERED: ACETAMINOPHEN 325 MG TABLET PO PRN (19:45)
[2018-07-15] MEDS ORDERED: AMIODARONE HCL IV 900 MG in IV DEXTROSE 5% 482 ML IV PRN (20:00)
--- NOTE | 2018-07-15 20:30 | NUR ---
Patient seen and examined by Dr. Steven with orders noted.
[2018-07-15 21:00] VITALS: BP 90/55
[2018-07-15] MEDS: AMIODARONE HCL IV 900 MG in IV DEXTROSE 5% 482 ML IV PRN (21:00)
[2018-07-15] MEDS: DOCUSATE SODIUM 250 MG CAPSULE PO SCH (21:00)
--- NOTE | 2018-07-15 21:00 | NUR ---
Current amiodarone drip is not according to hospital amiodarone drip protocol. Verified with charge nurse and animal control supervisor, amiodarone drip to be adjusted according to hospital protocol. Amiodarone drip changed to drip of Amiodarone 900mg + D5W 482ml to run at 33.33mls/hr with a total of 1mg/min concentration. Noted patient still atrial fibrillation on monitor with heart rate 96-105. Will closely monitor. Addendum: 07/16/18 at 0431 by REA PATTERSON RN Amiodarone vials x 3 has the lot no. [id number] and expiration date of 08/2018. Amiodarone vials x 3 has the lot no. [id number] and expiration date of 03/2019.
[2018-07-15] MEDS: MAGNESIUM SULFATE/D5W 100 ML IV SCH ×2 (21:11→22:10)
[2018-07-15] MEDS: ARIPIPRAZOLE 10 MG TABLET PO SCH (21:25)
[2018-07-15] MEDS: QUETIAPINE FUMARATE 100 MG TABLET PO SCH (21:25)
[2018-07-15 22:00] VITALS: BP 103/51
[2018-07-15] MEDS ORDERED: PIPERACILLIN/TAZOBACTAM/D5W 3.375 G in PREMIXED 1 EACH IV SCH (22:00)
[2018-07-15] MEDS ORDERED: PIPERACILLIN/TAZOBACTAM/D5W 3.375 G in PREMIXED 1 EACH IV ONE (22:00)
[2018-07-15] MEDS ORDERED: PIPERACILLIN SODIUM/TAZO 3.375 GM VIAL ONE (22:26)
[2018-07-15] MEDS ORDERED: VANCOMYCIN IV 1,250 MG in IV DEXTROSE 5% 500 ML IV ONE (22:30)
[2018-07-15] MEDS: POTASSIUM CHLORIDE 20 MEQ in IV NS 1000 ML 1,000 ML IV PRN (22:41)
[2018-07-15] MEDS ORDERED: VANCOMYCIN HCL 500 MG VIAL ONE (23:32)
[2018-07-15] MEDS ORDERED: VANCOMYCIN 1000 MG VIAL ONE (23:32)
[2018-07-15 23:35] VITALS: BP 91/54
[2018-07-16] VITALS (46 sets, daily range): BP systolic 70–151; BP diastolic 43–87
--- NOTE | 2018-07-16 00:15 | NUR ---
Vancomycin infusion started and vials used for infusion has the lot numbers [id number], expiration date of 10/2019 and [id number], expiration date of 10/2019.
[2018-07-16] MEDS: AMIODARONE HCL IV 900 MG in IV DEXTROSE 5% 482 ML IV PRN (01:11)
--- NOTE | 2018-07-16 02:30 | NUR ---
Noted patient's current blood pressure is 70/54, patient alert and oriented x 3 and not in any form of distress. Stopped amiodarone drip. Patient placed on trendelenburg position. Called on all hospitalist Petar Jimenez NP to report change of status and possible orders for the patient. Rapid response was also called.
--- NOTE | 2018-07-16 03:00 | NUR ---
Spoke with Petar Jimenez NP regarding patient's low blood pressure. Reported that patient had a blood pressure of 70/54 while on Amiodarone drip running at 0.5mg/min with heart rate of 95-110 still atrial fibrillation on the tele monitor. Reported that amiodarone drip was stopped and current blood pressure is 90/54. Per Alphonse Jimenez, stop the Amiodarone drip for now but no orders regarding the blood pressure, per hospitalist patient's current blood pressure is fine.
[2018-07-16] MEDS ORDERED: PIPERACILLIN/TAZOBACTAM/D5W 3.375 G in PREMIXED 1 EACH IV ONE (04:00)
[2018-07-16] MEDS ORDERED: LEVODOPA PO SCH (06:00)
[2018-07-16] MEDS ORDERED: [UNRECOGNIZED DRUG - OTHER] PO SCH (06:00)
[2018-07-16] MEDS ORDERED: CARBIDOPA PO SCH (06:00)
[2018-07-16] MEDS: LEVOTHYROXINE SODIUM 200 MCG TABLET PO SCH (06:28)
[2018-07-16] MEDS: FAMOTIDINE 20 MG TABLET PO SCH ×2 (06:32→16:36)
--- NOTE | 2018-07-16 06:45 | NUR ---
Patient slept well. Patient alert and oriented x 3, with oxygen support at 3lpm via nasal cannula, not in respiratory distress, oxygen saturation 96-100%. Noted with 3 IV accesses. No amiodarone drip as ordered, currently controlled afib on tele monitor, patient asymptomatic. Patient had no complaints throughout the shift. No recurrence of watery stool. Bbed in low position, side rails up x 2, call light within reach. Turned to sides every 2 hours, heels offloaded. Latest blood pressure is 92/51.
[2018-07-16 06:54] LABS: BASOPHILS % (AUTO) 0.3 % (0.0-2.0); EOSINOPHILS # (AUTO) 0.1 K/uL (0.0-0.7); EOSINOPHILS % (AUTO) 0.7 % (0.0-7.0); HEMATOCRIT 31.9 % (31.2-41.9); HEMOGLOBIN 10.8 g/dL (10.9-14.3); LYMPHOCYTES # (AUTO) 1.2 K/uL (20.0-40.0); LYMPHOCYTES % (AUTO) 10.3 % (20.5-51.5); MEAN CORPUSCULAR HEMOGLOBIN 29.8 uug (24.7-32.8); MEAN CORPUSCULAR HGB CONC 34 g/dL (32.3-35.6); MEAN CORPUSCULAR VOLUME 87.7 fL (75.5-95.3); MONOCYTES # (AUTO) 0.6 K/uL (2.0-10.0); MONOCYTES % (AUTO) 5.2 % (0.0-11.0); NEUTROPHILS # (AUTO) 10.1 K/uL (1.8-8.9); NEUTROPHILS % (AUTO) 83.5 % (38.5-71.5); PLATELET COUNT (AUTO) 202 K/uL (179-408); RED BLOOD CELL COUNT(AUTO) 3.63 MIL/uL (3.63-4.92); WHITE BLOOD COUNT (AUTO) 12.1 K/uL (3.8-11.8)
[2018-07-16 07:12] LABS: BILIRUBIN,TOTAL 0.7 mg/dL (0.2-1.0); CREATININE 0.9 mg/dL (0.6-1.3); MAGNESIUM 2.1 mg/dL (1.8-2.4); PHOSPHOROUS 2.8 mg/dL (2.5-4.9)
[2018-07-16 07:17] LABS: POTASSIUM 2.8 mmol/L (3.5-5.1)
--- NOTE | 2018-07-16 08:00 | NUR ---
RECEIVED PATIENT WITH EYES CLOSED AT ALL TIMES BUT AROUSABLE AND VERBALLY RESPONSIVE BP 74/43, WARM AND DRY SKIN, NO SS OF PAIN OR DISTRESS. DR CONROY NOTIFIED AWAITING CALL BACK.
[2018-07-16] MEDS ORDERED: IV NORMAL SALINE 500 ML IV ONE (08:30)
--- NOTE | 2018-07-16 08:30 | NUR ---
SERVER ADMINISTRATOR LISBETH IN WITH ORDER TO BOLUS PT WITH NS 500.. CLOSELY MONITORED AND MONITORED BP
[2018-07-16] MEDS ORDERED: Medication Not On Formulary EA (Calcitriol 0.5 MCG) PO SCH (09:00)
[2018-07-16] MEDS ORDERED: APIXABAN 5 MG TABLET PO SCH (09:00)
[2018-07-16] MEDS: SERTRALINE HCL 100 MG TABLET PO SCH (09:00)
[2018-07-16] MEDS: TOPIRAMATE 25 MG TABLET PO SCH ×2 (09:00→16:36)
[2018-07-16] MEDS: PRAMIPEXOLE 1 MG TABLET PO SCH ×3 (09:00→16:36)
[2018-07-16] MEDS: CALCIUM CARB/VITAMIN D 500MG-200UNITS TABLET PO SCH ×2 (09:09→16:36)
[2018-07-16] MEDS: CALCITRIOL 0.25 MCG CAPSULE PO SCH (09:10)
[2018-07-16] MEDS: Z GUARD REMEDY PASTE 57 GM TUBE TOP SCH ×2 (09:11→20:26)
--- NOTE | 2018-07-16 09:34 | NUR ---
DR CONROY CALLED BACK WITH ORDER TO TRANSFER PATIENT TO ICU. PATIENT BP NOW 98/54 ON HIGH FOWLERS POSITION TOLERATING WELL AND FEEDING SELF.
[2018-07-16] MEDS ORDERED: PHENYLEPHRINE IV 20 MG in IV DEXTROSE 5% 250 ML IV PRN (09:45)
[2018-07-16] MEDS ORDERED: AMIODARONE HCL IV 900 MG in IV DEXTROSE 5% 482 ML IV PRN (09:45)
--- NOTE | 2018-07-16 09:49 | NUR ---
BP 74/54 VS=[id number]. REPORT GIVEN TO VEST MAKER FOR HIGHER LEVEL OF CARE
--- NOTE | 2018-07-16 10:20 | NUR ---
Full SBAR report received by SUSHMA Yao.
--- NOTE | 2018-07-16 10:45 | NUR ---
Pt received from [facility]- alert and oriented. Nad noted upon transfer.
--- NOTE | 2018-07-16 11:07 | NUR ---
US tech here for 2D Echocardiogram.
[2018-07-16] MEDS: PIPERACILLIN/TAZOBACTAM/D5W 3.375 G in PREMIXED 1 EACH IV SCH ×2 (11:11→20:23)
[2018-07-16] MEDS: PHENYLEPHRINE IV 80 MG in IV DEXTROSE 5% 250 ML IV PRN (12:00)
[2018-07-16] MEDS: POTASSIUM CHLORIDE 50 ML IV SCH ×4 (13:42→17:59)
--- NOTE | 2018-07-16 14:03 | NUR ---
Clinical Pharmacy Note: Vancomycin Dosing per Pharmacy Subjective: Vancomycin IV to start on this 68 yo female patient for suspected infection (hx of MRSA of left ear). Objective: BUN 14/Scr 0.9 WBC 12.1 Temperature 97.8 ht 165 cm wt 81.6 kg Assessment/Plan: Patient received vanco 1250mg IVPB x1 dose today at midnight. Will start vancomycin 1250mg IVPB Q22hr for a predicted vancomycin steady state trough level of 15 mcg/ml. 2nd dose today at 2200. Will draw a vancomycin trough level prior to the 4th dose of vancomycin (not ordered yet). Will monitor renal function and adjust vancomycin dose, if needed, should renal function change significantly. Will follow daily.
[2018-07-16] MEDS ORDERED: PATIENT'S OWN MED PO SCH (17:00)
[2018-07-16] MEDS: ARIPIPRAZOLE 10 MG TABLET PO SCH (20:24)
[2018-07-16] MEDS: QUETIAPINE FUMARATE 100 MG TABLET PO SCH (20:24)
[2018-07-16] MEDS: DOCUSATE SODIUM 250 MG CAPSULE PO SCH (20:25)
[2018-07-16] MEDS: POTASSIUM CHLORIDE 20 MEQ in IV NS 1000 ML 1,000 ML IV PRN (20:33)
[2018-07-16 21:00] LABS: CREATININE 0.9 mg/dL (0.6-1.3); POTASSIUM 2.9 mmol/L (3.5-5.1)
[2018-07-16] MEDS ORDERED: POTASSIUM CHLORIDE 20 MEQ TAB.PRT.SR PO ONE (22:00)
[2018-07-16] MEDS ORDERED: VANCOMYCIN IV 1,250 MG in IV DEXTROSE 5% 500 ML IV SCH (22:00)
[2018-07-17] VITALS (94 sets, daily range): BP systolic 80–150; BP diastolic 35–100
[2018-07-17] MEDS: PHENYLEPHRINE IV 80 MG in IV DEXTROSE 5% 250 ML IV PRN (03:42)
[2018-07-17] MEDS: PIPERACILLIN/TAZOBACTAM/D5W 3.375 G in PREMIXED 1 EACH IV SCH ×2 (04:24→12:36)
[2018-07-17 05:07] LABS: BASOPHILS % (AUTO) 0.3 % (0.0-2.0); EOSINOPHILS # (AUTO) 0.1 K/uL (0.0-0.7); HEMATOCRIT 32.9 % (31.2-41.9); HEMOGLOBIN 11.4 g/dL (10.9-14.3); LYMPHOCYTES # (AUTO) 1.3 K/uL (20.0-40.0); LYMPHOCYTES % (AUTO) 13.2 % (20.5-51.5); MEAN CORPUSCULAR HEMOGLOBIN 29.8 uug (24.7-32.8); MEAN CORPUSCULAR HGB CONC 35 g/dL (32.3-35.6); MEAN CORPUSCULAR VOLUME 86.2 fL (75.5-95.3); MONOCYTES # (AUTO) 0.6 K/uL (2.0-10.0); MONOCYTES % (AUTO) 6.3 % (0.0-11.0); NEUTROPHILS # (AUTO) 7.8 K/uL (1.8-8.9); NEUTROPHILS % (AUTO) 79.2 % (38.5-71.5); PLATELET COUNT (AUTO) 236 K/uL (179-408); RED BLOOD CELL COUNT(AUTO) 3.81 MIL/uL (3.63-4.92); WHITE BLOOD COUNT (AUTO) 9.8 K/uL (3.8-11.8)
[2018-07-17 05:20] LABS: BILIRUBIN,TOTAL 0.5 mg/dL (0.2-1.0); MAGNESIUM 1.6 mg/dL (1.8-2.4); PHOSPHOROUS 3.1 mg/dL (2.5-4.9); TOTAL PROTEIN, SERUM 7.1 g/dL (6.4-8.2)
[2018-07-17 05:28] LABS: POTASSIUM 2.8 mmol/L (3.5-5.1)
[2018-07-17] MEDS: RYTARY PO SCH ×3 (06:42→15:29)
--- NOTE | 2018-07-17 07:30 | NUR ---
RECEIVED A 68 Y/O FEMALE PT A CASE OF A.FIB,RVR, PT IS ASLEEP, THOUGH NOTED TO BE ALERT ORIENTEDX2. BREATHING VIA NC 2LPM. CONNECTED TO ECG MONITOR SHOWING A-FIB AROUND 85BPM. PT HAS A RT HAND IV G20 AND RT U MIDLINE G18, RECEIVING PHENYLEPHRINE DRIP AT 60MCG/HR. BP SUSTAINED, PT IS URINATING VIA FC .
[2018-07-17] MEDS: LEVOTHYROXINE SODIUM 200 MCG TABLET PO SCH (08:08)
[2018-07-17] MEDS: CALCIUM CARB/VITAMIN D 500MG-200UNITS TABLET PO SCH ×2 (08:09→17:47)
[2018-07-17] MEDS: FAMOTIDINE 20 MG TABLET PO SCH ×2 (08:09→17:47)
[2018-07-17] MEDS: TOPIRAMATE 25 MG TABLET PO SCH ×2 (08:10→17:47)
[2018-07-17] MEDS: SERTRALINE HCL 100 MG TABLET PO SCH (08:11)
[2018-07-17] MEDS: PRAMIPEXOLE 1 MG TABLET PO SCH ×3 (08:12→17:47)
[2018-07-17] MEDS: Z GUARD REMEDY PASTE 57 GM TUBE TOP SCH ×2 (08:12→21:30)
[2018-07-17] MEDS: CALCITRIOL 0.25 MCG CAPSULE PO SCH (08:34)
[2018-07-17] MEDS: PATIENT'S OWN MED PO SCH ×2 (08:34→17:56)
--- NOTE | 2018-07-17 08:45 | NUR ---
DR INFORMED REGARDING POTASSIUM LEVEL AND PT CURRENTLY OFF AMIODARONE DRIP, NO NEW ORDERS
[2018-07-17] MEDS: POTASSIUM CHLORIDE 20 MEQ in IV NS 1000 ML 1,000 ML IV PRN (09:42)
[2018-07-17] MEDS ORDERED: POTASSIUM CHLORIDE 20 MEQ TAB.PRT.SR PO ONE (11:30)
--- NOTE | 2018-07-17 11:35 | NUR ---
Clinical Pharmacy Note: Vancomycin Dosing per Pharmacy Subjective: Vancomycin IV to continue on this 68 yo female patient for suspected infection (hx of MRSA of left ear). Objective: BUN 7/Scr 1 WBC 9.8 Temperature 97.4 ht 165 cm wt 81.6 kg Assessment/Plan: Will continue same dose of vancomycin 1250mg IVPB Q22hr for today. 3rd dose today at 2000. Will draw a vancomycin trough level prior to the 4th dose of vancomycin (not ordered yet). Will monitor renal function and adjust vancomycin dose, if needed, should renal function change significantly. Will follow daily.
[2018-07-17] MEDS: POTASSIUM CHLORIDE 50 ML IV SCH ×2 (11:45→13:41)
[2018-07-17] MEDS: MAGNESIUM SULFATE/D5W 100 ML IV SCH ×2 (11:45→12:42)
[2018-07-17] MEDS: AMIODARONE HCL 200 MG TABLET PO SCH (17:47)
[2018-07-17] MEDS: QUETIAPINE FUMARATE 100 MG TABLET PO SCH (21:28)
[2018-07-17] MEDS: DOCUSATE SODIUM 250 MG CAPSULE PO SCH (21:28)
[2018-07-17] MEDS: ARIPIPRAZOLE 10 MG TABLET PO SCH (21:28)
[2018-07-17] MEDS ORDERED: CEFEPIME HCL 1 G in IV DEXTROSE 5% 50 ML IV SCH (21:30)
[2018-07-17] MEDS ORDERED: CEFEPIME HCL 1 G VIAL ONE (21:45)
[2018-07-17] MEDS: METRONIDAZOLE 500 MG TABLET PO SCH (22:41)
[2018-07-18] VITALS (57 sets, daily range): BP systolic 80–141; BP diastolic 29–94
[2018-07-18] MEDS: POTASSIUM CHLORIDE 20 MEQ in IV NS 1000 ML 1,000 ML IV PRN ×2 (00:43→17:06)
[2018-07-18 06:04] LABS: BASOPHILS % (AUTO) 0.3 % (0.0-2.0); EOSINOPHILS # (AUTO) 0.1 K/uL (0.0-0.7); HEMATOCRIT 29.9 % (31.2-41.9); HEMOGLOBIN 10.6 g/dL (10.9-14.3); LYMPHOCYTES # (AUTO) 1.2 K/uL (20.0-40.0); LYMPHOCYTES % (AUTO) 16.1 % (20.5-51.5); MEAN CORPUSCULAR HEMOGLOBIN 30.1 uug (24.7-32.8); MEAN CORPUSCULAR HGB CONC 35 g/dL (32.3-35.6); MEAN CORPUSCULAR VOLUME 85.3 fL (75.5-95.3); MONOCYTES # (AUTO) 0.4 K/uL (2.0-10.0); MONOCYTES % (AUTO) 6.2 % (0.0-11.0); NEUTROPHILS # (AUTO) 5.4 K/uL (1.8-8.9); NEUTROPHILS % (AUTO) 75.4 % (38.5-71.5); PLATELET COUNT (AUTO) 232 K/uL (179-408); WHITE BLOOD COUNT (AUTO) 7.2 K/uL (3.8-11.8)
[2018-07-18] MEDS: LEVOTHYROXINE SODIUM 200 MCG TABLET PO SCH (06:13)
[2018-07-18] MEDS: RYTARY PO SCH ×3 (06:13→13:11)
[2018-07-18] MEDS: METRONIDAZOLE 500 MG TABLET PO SCH ×3 (06:13→22:03)
[2018-07-18 06:16] LABS: CREATININE 0.7 mg/dL (0.6-1.3); MAGNESIUM 1.6 mg/dL (1.8-2.4)
[2018-07-18 06:23] LABS: POTASSIUM 2.8 mmol/L (3.5-5.1)
[2018-07-18] MEDS ORDERED: SWABABLE VALVE TRANSFER SET EA MC ONE (07:43)
[2018-07-18] MEDS ORDERED: IOHEXOL 300MG/ML 100 ML INFUS..BTL ONE (07:43)
[2018-07-18] MEDS ORDERED: IV NORMAL SALINE 0 ML IV ONE (07:43)
[2018-07-18] MEDS ORDERED: IV NORMAL SALINE 250 ML IV ONE (07:45)
--- NOTE | 2018-07-18 07:45 | NUR ---
DNP:RHYS JENKINS WAS PAGED FOR CRIT.K+ AND LOW Mg+,CALL BACK WITH NEW ORDERS.
[2018-07-18] MEDS: FAMOTIDINE 20 MG TABLET PO SCH ×2 (07:52→17:03)
[2018-07-18] MEDS: POTASSIUM CHLORIDE 50 ML IV SCH ×4 (08:10→11:42)
[2018-07-18] MEDS: MAGNESIUM SULFATE/D5W 100 ML IV SCH ×4 (08:10→11:42)
--- NOTE | 2018-07-18 08:45 | NUR ---
WENT TO CT SCAN,TOLERATED WELL,NO S/S OF DISTRESS.
[2018-07-18] MEDS: AMIODARONE HCL 200 MG TABLET PO SCH ×2 (09:14→17:03)
[2018-07-18] MEDS: CALCIUM CARB/VITAMIN D 500MG-200UNITS TABLET PO SCH ×2 (09:14→17:03)
[2018-07-18] MEDS: PATIENT'S OWN MED PO SCH ×2 (09:15→17:05)
[2018-07-18] MEDS: TOPIRAMATE 25 MG TABLET PO SCH ×2 (09:15→17:04)
[2018-07-18] MEDS: SERTRALINE HCL 100 MG TABLET PO SCH (09:16)
[2018-07-18] MEDS: PRAMIPEXOLE 1 MG TABLET PO SCH ×3 (09:16→17:03)
[2018-07-18] MEDS: Z GUARD REMEDY PASTE 57 GM TUBE TOP SCH ×2 (09:17→20:41)
[2018-07-18] MEDS: CALCITRIOL 0.25 MCG CAPSULE PO SCH (09:17)
[2018-07-18] MEDS: CEFEPIME HCL 1 G in IV DEXTROSE 5% 50 ML IV SCH ×2 (09:18→21:20)
--- NOTE | 2018-07-18 10:30 | NUR ---
PT.WAS SEEN BY DNP:RHYS JENKINS.
--- NOTE | 2018-07-18 12:30 | NUR ---
FAMILY AT BEDSIDE, UPDATED WITH PT.CONDITION AND PLAN OF CARE .
--- NOTE | 2018-07-18 15:30 | NUR ---
PT.WAS SEEN BY .
--- NOTE | 2018-07-18 15:39 | NUR ---
PT. SLEEPING,NO S/S OF DISTRESS.
--- NOTE | 2018-07-18 17:38 | NUR ---
SON AT BEDSIDE,UPDATED WITH PT.CONDITION AND PLAN OF CARE.
--- NOTE | 2018-07-18 18:00 | NUR ---
FAMILY AT BEDSIDE ASKING TO TURN SEDATION FOR COMMUNICATION,MARY OFF. Addendum: 07/18/18 at 6 by CHON TORRE RN WRONG PT.CHARTING,DISREGARD.
--- NOTE | 2018-07-18 19:30 | NUR ---
Report received. Patient DENNYSO, able to communicate needs. Denies pain. NAD noted. O2 at 2L NC; sat above 94%. Assessment completed; see flow sheet for details. Addendum: 07/19/18 at 0324 by ALEJO MARQUES RN Amended: Links added. Addendum: 07/19/18 at 0326 by ALEJO MARQUES RN Amended: Links added. Addendum: 07/19/18 at 0327 by ALEJO TAECHARATKIJ RN Amended: Links added.
--- NOTE | 2018-07-18 20:00 | NUR ---
Seen by Shivam GARCIA; no new orders. Incontinent of soft, liquid green stools. PM care done. Skin excoriation noted to sacrum, perineal areas and groins. Photos taken and documented. Hydrogel and Z guard applied to affected areas. Patient cooperative. Addendum: 07/19/18 at 0326 by ALEJO MARQUES RN Amended: Links added. Addendum: 07/19/18 at 0327 by ALEJO MARQUES RN Amended: Links added.
[2018-07-18] MEDS: ARIPIPRAZOLE 10 MG TABLET PO SCH (20:40)
[2018-07-18] MEDS: QUETIAPINE FUMARATE 100 MG TABLET PO SCH (20:40)
[2018-07-18] MEDS: DOCUSATE SODIUM 250 MG CAPSULE PO SCH (21:00)
[2018-07-19] VITALS (36 sets, daily range): BP systolic 67–125; BP diastolic 32–79
[2018-07-19] MEDS: PHENYLEPHRINE IV 80 MG in IV DEXTROSE 5% 250 ML IV PRN (00:10)
--- NOTE | 2018-07-19 00:10 | NUR ---
Hypotensive. Remains on Afib on the monitor. Neosynephrine drip started to keep SBP above 90 as ordered. Addendum: 07/19/18 at 0327 by ALEJO MARQUES RN Amended: Links added.
--- NOTE | 2018-07-19 01:00 | NUR ---
Neosynephrine drip titrated; BPs monitored closely.
[2018-07-19 05:23] LABS: BASOPHILS % (AUTO) 0.4 % (0.0-2.0); EOSINOPHILS # (AUTO) 0.1 K/uL (0.0-0.7); EOSINOPHILS % (AUTO) 2.2 % (0.0-7.0); HEMATOCRIT 29.8 % (31.2-41.9); HEMOGLOBIN 10.6 g/dL (10.9-14.3); LYMPHOCYTES # (AUTO) 1.3 K/uL (20.0-40.0); LYMPHOCYTES % (AUTO) 20.2 % (20.5-51.5); MEAN CORPUSCULAR HEMOGLOBIN 30.2 uug (24.7-32.8); MEAN CORPUSCULAR HGB CONC 35 g/dL (32.3-35.6); MEAN CORPUSCULAR VOLUME 85.3 fL (75.5-95.3); MONOCYTES # (AUTO) 0.4 K/uL (2.0-10.0); MONOCYTES % (AUTO) 6.6 % (0.0-11.0); NEUTROPHILS # (AUTO) 4.6 K/uL (1.8-8.9); NEUTROPHILS % (AUTO) 70.6 % (38.5-71.5); PLATELET COUNT (AUTO) 249 K/uL (179-408); WHITE BLOOD COUNT (AUTO) 6.5 K/uL (3.8-11.8)
[2018-07-19 05:37] LABS: CREATININE 0.7 mg/dL (0.6-1.3); MAGNESIUM 1.9 mg/dL (1.8-2.4); PHOSPHOROUS 3.6 mg/dL (2.5-4.9)
[2018-07-19] MEDS: METRONIDAZOLE 500 MG TABLET PO SCH ×2 (05:48→15:13)
[2018-07-19] MEDS: RYTARY PO SCH ×3 (05:49→15:13)
--- NOTE | 2018-07-19 06:00 | NUR ---
Slept well during the night. Neosynephrine drip dc'd. BPs stable. Am care rendered; patient cooperative and able to brush teeth.
[2018-07-19] MEDS: POTASSIUM CHLORIDE 20 MEQ in IV NS 1000 ML 1,000 ML IV PRN ×2 (06:25→18:41)
[2018-07-19] MEDS: LEVOTHYROXINE SODIUM 200 MCG TABLET PO SCH (06:32)
[2018-07-19] MEDS: FAMOTIDINE 20 MG TABLET PO SCH ×2 (06:38→18:14)
--- NOTE | 2018-07-19 07:47 | NUR ---
RECEIVED A 68 Y/O FEMALE PT A CASE OF A.FIB,RVR, PT IS ASLEEP, THOUGH NOTED TO BE ALERT ORIENTEDX3. BREATHING VIA NC 2LPM. CONNECTED TO ECG MONITOR SHOWING A-FIB AROUND 85BPM. PT HAS A RT HAND IV G20 AND RT U MIDLINE G18, RECEIVING IVF NS WITH K 20MEQ @80ML/HR. URINATING VIA FC. PT NOTED TO HAVE A LT ANKLE DTI, AND REDNESS ON SACRAL AND BETWEEN THIGHS
[2018-07-19] MEDS: AMIODARONE HCL 200 MG TABLET PO SCH ×2 (08:57→18:14)
[2018-07-19] MEDS: CALCIUM CARB/VITAMIN D 500MG-200UNITS TABLET PO SCH ×2 (08:57→18:14)
[2018-07-19] MEDS: PATIENT'S OWN MED PO SCH ×2 (08:58→18:19)
[2018-07-19] MEDS: PRAMIPEXOLE 1 MG TABLET PO SCH ×3 (08:58→18:13)
[2018-07-19] MEDS: CALCITRIOL 0.25 MCG CAPSULE PO SCH (09:00)
[2018-07-19] MEDS: Z GUARD REMEDY PASTE 57 GM TUBE TOP SCH ×2 (09:01→21:35)
[2018-07-19] MEDS: SERTRALINE HCL 100 MG TABLET PO SCH (09:01)
[2018-07-19] MEDS: TOPIRAMATE 25 MG TABLET PO SCH ×2 (09:01→18:14)
[2018-07-19] MEDS: CEFEPIME HCL 1 G in IV DEXTROSE 5% 50 ML IV SCH (10:27)
[2018-07-19] MEDS: POTASSIUM CHLORIDE 50 ML IV SCH ×4 (10:28→14:16)
--- NOTE | 2018-07-19 10:50 | NUR ---
SEEN BY SUELLEN, STUDENT RIBBON CLEANER WORKING WITH MIKALA BROWN, ASSESSMENT DONE AND ORDERED TO TRANSFER PT TO TELE UNIT, ORDERS RECEIVED.
--- NOTE | 2018-07-19 11:30 | NUR ---
PT EVALUATION DONE, SEATED IN BED WITH DANGLED FEET, TOLERATED WELL. SLIGHT DIZZINESS
--- NOTE | 2018-07-19 11:57 | NUR ---
WOUND CARE CONSULT: PT PRESENTS WITH RASH TO PERINEUM, GROIN AREAS AND LEFT POSTERIOR LOWER LEG WOUND, RT POSTERIOR LOWER LEG SCAR, ALL PRESENT ON ADMISSION. RECOMMEND DPM CONSULT. [facility] ALL SKIN PROTECTION RECOMMENDATIONS DISCUSSED WITH NURSING STAFF. DEFER TO DPM FOR LEFT POSTERIOR LOWER LEG WOUND. AREA PROTECTED WITH MEPILEX AND OFFLOADED. WILL SEE PRN. SHEN IN AGREEMENT WITH PLAN OF CARE. Addendum: 07/19/18 at 1159 by MARIO LLAMAS RN Amended: Links added.
--- NOTE | 2018-07-19 13:20 | NUR ---
PATIENT TRANSFERRED TO TELE UNIT , ACCOMPANIED WITH RN NE.
--- NOTE | 2018-07-19 13:30 | NUR ---
RECIEVED PATIENT FROM THE UNIT TO ROOM 224 AWAKE ALERT COOPERATE WELL NO SOB OR PAIN CALL LIGHT IN REACH AND BED ALARM ON CONTINUE IVF AND O2 AT 2L VIA N/C
--- NOTE | 2018-07-19 14:00 | NUR ---
EAT LUNCH WELL RESTING AND WATCHING TV AT THIS TIME VS TAKEN STABLE
[2018-07-19] MEDS ORDERED: DIGOXIN 500 MCG/2 ML AMP IV ONE (15:15)
--- NOTE | 2018-07-19 18:00 | NUR ---
STABLE HEMODYNAMIC STATUS ,PAIN UNDER CONTROL NO RESPIRATORY DISTRESS SAFETY MEASURE PROVIDED CALL LIGHT WITHIN REACH
[2018-07-19] MEDS: CLOTRIMAZOLE 1% CREAM 30 GM TUBE TOP SCH (18:20)
--- NOTE | 2018-07-19 19:45 | NUR ---
RECEIVED PATIENT IN BED AWAKE, NO SOB NO CHEST PAIN, TELE MONITOR A FIB, NO COMPLAIN OF PAIN, HAD ONE LBM MEDIUM AMOUNT, DSS MEDS HELD AT THIS TIME., FITZGERALD CATH PATENT DRAINING WITH YELLOW COLOR URINE IN MODERATE. CONT TO MONITOR.
[2018-07-19] MEDS: DOCUSATE SODIUM 250 MG CAPSULE PO SCH (21:00)
[2018-07-19] MEDS: QUETIAPINE FUMARATE 100 MG TABLET PO SCH (21:31)
[2018-07-19] MEDS: ARIPIPRAZOLE 10 MG TABLET PO SCH (21:31)
[2018-07-20 03:31] VITALS: BP 118/71
--- NOTE | 2018-07-20 05:52 | NUR ---
PATIENT SLEPT MOST OF THE NIGHT, NO FURTHER EPISODES OF DIARRHEA AT THIS TIME, NO SOB NO CHEST PAIN NOTED, TELE MONITOR A FIB CONTROL, FITZGERALD CATH PATENT DRAINING WITH YELLOW COLOR URINE IN MODERATE AMOUNT. CONT TO MONITOR.
[2018-07-20] MEDS: RYTARY PO SCH ×3 (06:08→13:04)
[2018-07-20] MEDS: LEVOTHYROXINE SODIUM 200 MCG TABLET PO SCH (06:09)
[2018-07-20] MEDS: FAMOTIDINE 20 MG TABLET PO SCH (06:09)
[2018-07-20 07:28] LABS: BASOPHILS % (AUTO) 0.3 % (0.0-2.0); EOSINOPHILS # (AUTO) 0.1 K/uL (0.0-0.7); EOSINOPHILS % (AUTO) 2.1 % (0.0-7.0); HEMATOCRIT 35.8 % (31.2-41.9); HEMOGLOBIN 12.5 g/dL (10.9-14.3); LYMPHOCYTES # (AUTO) 1.3 K/uL (20.0-40.0); MEAN CORPUSCULAR HEMOGLOBIN 29.9 uug (24.7-32.8); MEAN CORPUSCULAR HGB CONC 35 g/dL (32.3-35.6); MONOCYTES # (AUTO) 0.4 K/uL (2.0-10.0); MONOCYTES % (AUTO) 6.1 % (0.0-11.0); NEUTROPHILS # (AUTO) 5.3 K/uL (1.8-8.9); NEUTROPHILS % (AUTO) 73.5 % (38.5-71.5); PLATELET COUNT (AUTO) 290 K/uL (179-408); RED BLOOD CELL COUNT(AUTO) 4.16 MIL/uL (3.63-4.92); WHITE BLOOD COUNT (AUTO) 7.2 K/uL (3.8-11.8)
[2018-07-20 07:41] LABS: CREATININE 0.7 mg/dL (0.6-1.3); MAGNESIUM 1.5 mg/dL (1.8-2.4); PHOSPHOROUS 3.7 mg/dL (2.5-4.9); POTASSIUM 3.5 mmol/L (3.5-5.1)
[2018-07-20] MEDS: CALCIUM CARB/VITAMIN D 500MG-200UNITS TABLET PO SCH (08:32)
[2018-07-20] MEDS: SERTRALINE HCL 100 MG TABLET PO SCH (08:32)
[2018-07-20] MEDS: TOPIRAMATE 25 MG TABLET PO SCH (08:32)
[2018-07-20] MEDS: AMIODARONE HCL 200 MG TABLET PO SCH (08:34)
[2018-07-20] MEDS: CALCITRIOL 0.25 MCG CAPSULE PO SCH (08:34)
[2018-07-20] MEDS: PRAMIPEXOLE 1 MG TABLET PO SCH ×2 (08:34→13:04)
[2018-07-20] MEDS: PATIENT'S OWN MED PO SCH (08:37)
[2018-07-20] MEDS: CLOTRIMAZOLE 1% CREAM 30 GM TUBE TOP SCH (08:38)
[2018-07-20] MEDS: Z GUARD REMEDY PASTE 57 GM TUBE TOP SCH (08:38)
[2018-07-20] MEDS: MAGNESIUM SULFATE/D5W 100 ML IV SCH ×2 (09:27→10:28)
[2018-07-20] MEDS ORDERED: CEphaleXIN 500 MG CAPSULE PO SCH (10:32)
[2018-07-20 12:00] VITALS: BP 97/60
[2018-07-20 16:00] VITALS: BP 115/58
[2018-07-20] MEDS ORDERED: CEPH500C2 PO (17:14)
--- NOTE | 2018-07-20 17:30 | NUR ---
DISCHARGE NOTED, PROTOCOL FOLLOWED. MIDLINE REMOVED WITH NO REDNESS OR IRRITATION NOTED. FITZGERALD REMOVED, PATIENT VOIDED. DISCHARGE INSTRUCTIONS PROVIDED TO PATIENT, SON AND CAREGIVER, ALL VERBALIZED UNDERSTANDING. ALL BELONGINGS ACCOUNTED FOR AND SENT HOME WITH PATIENT. PATIENT LEFT IN PRIVATE CAR WITH CAREGIVER
[2018-10-15] MEDS ORDERED: METR500T PO (09:34)
[2018-10-15] MEDS ORDERED: VANC125C5 PO (09:34)
[2018-10-15] MEDS ORDERED: ONDA4TAB5 PO (09:34)
== END 2018-07-20 18:00 | disposition home or self-care (01) | DRG 871 ==
LOC: ER 15:38 → TELE 18:45 → TELE-TD 19:45 → CCU 07-16 09:45 → TELE 07-19 13:38 → MED 07-20 16:58
PROVIDERS: ADMIT Internal Medicine; ATTEND Internal Medicine
PROC: 3E033RZ Introduction of Antiarrhythmic into Peripheral Vein, Percutaneous Approach (ICD-10-PCS; 2018-07-15)
PROC: 05HY33Z Insertion of Infusion Device into Upper Vein, Percutaneous Approach (ICD-10-PCS; principal; 2018-07-16)
DX: A41.9 Sepsis, unspecified organism (principal); R53.2 Functional quadriplegia; R65.21 Severe sepsis with septic shock; L03.113 Cellulitis of right upper limb; A04.9 Bacterial intestinal infection, unspecified; E44.1 Mild protein-calorie malnutrition; D68.59 Other primary thrombophilia; Z79.01 Long term (current) use of anticoagulants; E87.6 Hypokalemia; I48.0 Paroxysmal atrial fibrillation; G31.83 Neurocognitive disorder with Lewy bodies; F02.80 Dementia in other diseases classified elsewhere, unspecified severity, without behavioral disturbance, psychotic disturbance, mood disturbance, and anxiety; Z86.14 Personal history of Methicillin resistant Staphylococcus aureus infection; Z68.30 Body mass index [BMI] 30.0-30.9, adult; E66.9 Obesity, unspecified; Z87.891 Personal history of nicotine dependence; I08.2 Rheumatic disorders of both aortic and tricuspid valves; Z85.038 Personal history of other malignant neoplasm of large intestine; Z90.49 Acquired absence of other specified parts of digestive tract; D63.8 Anemia in other chronic diseases classified elsewhere; S80.812D Abrasion, left lower leg, subsequent encounter; X58.XXXD Exposure to other specified factors, subsequent encounter; E83.42 Hypomagnesemia; E83.51 Hypocalcemia; E03.9 Hypothyroidism, unspecified; E89.2 Postprocedural hypoparathyroidism; K21.9 Gastro-esophageal reflux disease without esophagitis; Z86.73 Personal history of transient ischemic attack (TIA), and cerebral infarction without residual deficits; I48.2 Chronic atrial fibrillation; Z79.899 Other long term (current) drug therapy; E78.5 Hyperlipidemia, unspecified; I10 Essential (primary) hypertension
CPT/HCPCS: 36415; 70030-TC; 71045; 83605; 83735; 84100; 84146; 84443; 85025; 85730; 87040; 87086; 87400; 92610; 93005; 93307; 97110; 97116; 97530; A4663; C1758; G0378; J0282; J0692; J1160; J1650; J2370; J2543; J3370; J3475; J3480; J7030; J7040; J7050; J7060; Q9967

== ENCOUNTER 2018-10-11 09:30 | Inpatient (IN) | payer MEDICARE, MEDICAID ==
[~2018-10-11] VITALS: Ht 170.2 cm; Wt 95.3 kg
[~2018-10-11 09:30] MED LIST changes: +CEPH500C2 PO; -LINE600T15 PO; -PIPE3.379 IV; -SIMV40TA5 PO
[2018-10-11] MEDS ORDERED: IV NORMAL SALINE 1000 ML BAG IV ONE (09:45)
[2018-10-11 10:02] LABS: BASOPHILS # (AUTO) 0.1 K/uL (0.0-8.0); BASOPHILS % (AUTO) 0.7 % (0.0-2.0); EOSINOPHILS % (AUTO) 0.4 % (0.0-7.0); HEMATOCRIT 38.2 % (31.2-41.9); HEMOGLOBIN 12.9 g/dL (10.9-14.3); LYMPHOCYTES % (AUTO) 14.7 % (20.5-51.5); MEAN CORPUSCULAR HEMOGLOBIN 29.1 uug (24.7-32.8); MEAN CORPUSCULAR HGB CONC 34 g/dL (32.3-35.6); MEAN CORPUSCULAR VOLUME 86.6 fL (75.5-95.3); MONOCYTES # (AUTO) 0.3 K/uL (2.0-10.0); MONOCYTES % (AUTO) 4.6 % (0.0-11.0); NEUTROPHILS # (AUTO) 5.5 K/uL (1.8-8.9); NEUTROPHILS % (AUTO) 79.6 % (38.5-71.5); PLATELET COUNT (AUTO) 216 K/uL (179-408); RED BLOOD CELL COUNT(AUTO) 4.42 MIL/uL (3.63-4.92); WHITE BLOOD COUNT (AUTO) 6.9 K/uL (3.8-11.8)
--- NOTE | 2018-10-11 10:03 | NUR ---
Pt's nurse wound care/son will provide list of medication. Pt was started on "antibiotic" for diarrhea since yesterday,by Dr Rushing.
--- NOTE | 2018-10-11 10:28 | NUR ---
LUIS MANUEL, PT SON CALLED AND REVIEWED THE MEDS OVER THE PHONE. [phone]
[2018-10-11 10:30] LABS: BILIRUBIN,DIRECT 0.2 mg/dL (0.0-0.2); BILIRUBIN,TOTAL 0.4 mg/dL (0.2-1.0); CREATININE 1.2 mg/dL (0.6-1.3); POTASSIUM 3.3 mmol/L (3.5-5.1); TOTAL PROTEIN, SERUM 9.3 g/dL (6.4-8.2)
[2018-10-11] MEDS ORDERED: SIMV10TA2 PO (10:30)
[2018-10-11] MEDS ORDERED: ONDANSETRON 4 MG/2 ML VIAL IV PRN (12:00)
[2018-10-11] MEDS ORDERED: MAGNESIUM HYDROXIDE 30 ML LIQUID UDC PO PRN (12:00)
[2018-10-11] MEDS ORDERED: ACETAMINOPHEN 325 MG TABLET PO PRN (12:00)
[2018-10-11] MEDS ORDERED: LOPERAMIDE HCL 2 MG CAPSULE PO PRN (12:00)
[2018-10-11] MEDS ORDERED: ZOLPIDEM 5 MG TABLET PO PRN (12:00)
[2018-10-11] MEDS ORDERED: Z GUARD REMEDY PASTE 57 GM TUBE TOP PRN (12:00)
[2018-10-11] MEDS ORDERED: MORPHINE SULFATE 2 MG/1 ML DISP.SYRIN IV PRN (12:00)
--- NOTE | 2018-10-11 12:04 | NUR ---
ADMITTED FROM HOME VIA ER WITH ADMITTING DX OF DEHYDRATION AWAKE ALERT AND VERBALLY RESPONSIVE, ABLE TO MAKE NEEDS KNOW. REQUIRES MAX ASSIST IN ALL ADLS. PER PATIENT SHE IS UNABLE TO WALK. NO SS OF PAIN OR SOB ROUTINE ADMISSION ASSESSMENT INITIATED LISBETH MESS ATTENDANT CREW NOTIFIED OF ADMISSION. AFIB ON MONITOR
[2018-10-11] MEDS ORDERED: POTASSIUM CHLORIDE 20 MEQ TAB.PRT.SR PO ONE (12:15)
[2018-10-11 12:26] VITALS: BP 117/65
[2018-10-11 12:54] LABS: *BILIRUBIN,URIN NEGATIVE (NEGATIVE); *BLOOD, URINE NEGATIVE (NEGATIVE); *CLARITY,URINE CLEAR (CLEAR); *COLOR,URINE YELLOW (YELLOW); *KETONES,URINE NEGATIVE (NEGATIVE); *UROBILINOGEN,URINE 0.2 E.U./dl (NORMAL); LEUKOCYTE ESTERASE ,URINE NEGATIVE (NEGATIVE); NITRITE, URINE NEGATIVE (NEGATIVE); PH,URINE 5.5 (5.0-8.0); UGLUCOSE NEGATIVE (NEGATIVE)
[2018-10-11 13:08] LABS: WBC,URINE 0-3 /HPF (0-3)
[2018-10-11] MEDS: PRAMIPEXOLE 1 MG TABLET PO SCH ×2 (13:45→16:49)
[2018-10-11] MEDS: CALCIUM CARB/VITAMIN D 500MG-200UNITS TABLET PO SCH ×2 (13:45→16:49)
[2018-10-11] MEDS ORDERED: LEVODOPA PO SCH (14:00)
[2018-10-11] MEDS ORDERED: [UNRECOGNIZED DRUG - OTHER] PO SCH (14:00)
[2018-10-11] MEDS ORDERED: CARBIDOPA PO SCH (14:00)
[2018-10-11] MEDS ORDERED: CARB-93 PO (15:43)
[2018-10-11 16:05] VITALS: BP 115/78
[2018-10-11] MEDS: FAMOTIDINE 20 MG TABLET PO SCH (16:49)
[2018-10-11] MEDS: CARBIDOPA/LEVODOPA 25-100MG TABLET PO SCH (16:50)
[2018-10-11] MEDS: IV NS 1000 ML 1,000 ML IV PRN (17:58)
--- NOTE | 2018-10-11 19:30 | NUR ---
RECEIVED IN BED, AWAKE. IN NO ACUTE SIGNS OF DISTRESS, IV FLUIDS RUNNING. SAFETY MEASURES OBSERVED.
[2018-10-11 20:00] VITALS: BP 111/69
[2018-10-11] MEDS: ARIPIPRAZOLE 10 MG TABLET PO SCH (20:29)
[2018-10-11] MEDS: TOPIRAMATE 25 MG TABLET PO SCH (20:29)
[2018-10-11] MEDS: SIMVASTATIN 10 MG TABLET PO SCH (20:29)
[2018-10-11] MEDS: QUETIAPINE FUMARATE 100 MG TABLET PO SCH (20:29)
[2018-10-12] VITALS: BP 116/71
[2018-10-12 04:00] VITALS: BP 102/58
[2018-10-12] MEDS: CARBIDOPA/LEVODOPA 25-100MG TABLET PO SCH ×4 (05:45→16:46)
[2018-10-12] MEDS: IV NS 1000 ML 1,000 ML IV PRN (05:46)
[2018-10-12] MEDS: LEVOTHYROXINE SODIUM 200 MCG TABLET PO SCH (06:05)
--- NOTE | 2018-10-12 06:20 | NUR ---
PT RESTING IN BED, IN NO ACUTE SIGNS OF DISTRESS, STILL ON AFIB ON TELE, PT HAS HX OF AFIB. NO C/O PAIN DURING SHIFT. TURNED AND REPOSITIONED.
--- NOTE | 2018-10-12 06:31 | NUR ---
PT HAD LARGE, SOFT BM X 1 DURING SHIFT. NO LOOSE BM. CONTINUE ON C-DIFF PRECAUTION.
[2018-10-12 06:58] LABS: BASOPHILS % (AUTO) 0.8 % (0.0-2.0); EOSINOPHILS % (AUTO) 0.5 % (0.0-7.0); HEMATOCRIT 33.9 % (31.2-41.9); HEMOGLOBIN 11.4 g/dL (10.9-14.3); LYMPHOCYTES # (AUTO) 1.7 K/uL (20.0-40.0); LYMPHOCYTES % (AUTO) 28.1 % (20.5-51.5); MEAN CORPUSCULAR HEMOGLOBIN 29.2 uug (24.7-32.8); MEAN CORPUSCULAR HGB CONC 34 g/dL (32.3-35.6); MEAN CORPUSCULAR VOLUME 86.6 fL (75.5-95.3); MONOCYTES # (AUTO) 0.4 K/uL (2.0-10.0); MONOCYTES % (AUTO) 6.6 % (0.0-11.0); NEUTROPHILS # (AUTO) 3.9 K/uL (1.8-8.9); PLATELET COUNT (AUTO) 166 K/uL (179-408); RED BLOOD CELL COUNT(AUTO) 3.91 MIL/uL (3.63-4.92)
[2018-10-12 07:20] LABS: BILIRUBIN,TOTAL 0.3 mg/dL (0.2-1.0); CREATININE 0.9 mg/dL (0.6-1.3); MAGNESIUM 1.6 mg/dL (1.8-2.4); PHOSPHOROUS 3.9 mg/dL (2.5-4.9); TOTAL PROTEIN, SERUM 7.5 g/dL (6.4-8.2)
[2018-10-12 07:27] LABS: THYROID STIMULATING HORMONE 1.284 mIU/mL (0.358-3.740)
--- NOTE | 2018-10-12 08:00 | NUR ---
RESTING IN BED WITH AN IV INFUSING WELL. KEPT CLAN AND DRY.
[2018-10-12] MEDS ORDERED: METOPROLOL SUCCINATE XL 50 MG TAB.SR.24H PO SCH ×2 (09:00)
[2018-10-12] MEDS: METOPROLOL SUCCINATE XL 25 MG TAB.SR.24H PO SCH (09:00)
[2018-10-12] MEDS ORDERED: Medication Not On Formulary EA (Calcitriol 0.5 MCG) PO SCH (09:00)
[2018-10-12] MEDS: TOPIRAMATE 25 MG TABLET PO SCH ×2 (10:26→21:07)
[2018-10-12] MEDS: PRAMIPEXOLE 1 MG TABLET PO SCH ×3 (10:27→16:49)
[2018-10-12] MEDS: SERTRALINE HCL 100 MG TABLET PO SCH (10:28)
[2018-10-12] MEDS: FAMOTIDINE 20 MG TABLET PO SCH ×2 (10:28→16:49)
[2018-10-12] MEDS: CALCIUM CARB/VITAMIN D 500MG-200UNITS TABLET PO SCH ×3 (10:30→16:49)
[2018-10-12] MEDS: POTASSIUM CHLORIDE 50 ML IV SCH ×4 (10:44→13:44)
[2018-10-12] MEDS: MAGNESIUM SULFATE/D5W 100 ML IV SCH ×2 (10:44→12:30)
[2018-10-12 11:18] VITALS: BP 88/58
--- NOTE | 2018-10-12 11:45 | NUR ---
lab result of stool cdiff pos relayed to gutierrez.
[2018-10-12] MEDS: CALCITRIOL 0.25 MCG CAPSULE PO SCH (12:30)
[2018-10-12] MEDS: VANCOMYCIN FOR PO/GT/NG USE PO SCH ×3 (13:44→23:18)
[2018-10-12] MEDS: METRONIDAZOLE 500 MG TABLET PO SCH ×2 (13:45→21:08)
[2018-10-12 15:02] VITALS: BP 100/56
--- NOTE | 2018-10-12 19:20 | NUR ---
Received patient lying in bed. AAOx4. In no acute distress. Denies any pain or SOB. Controlled A. Fib on tele at 85/min. IV site on left AC intact and patent. IVF infusing. Isolation precaution observed. Safety measure initiated and call leyva within reach.
[2018-10-12 19:32] VITALS: BP 110/59
[2018-10-12] MEDS: QUETIAPINE FUMARATE 100 MG TABLET PO SCH (21:07)
[2018-10-12] MEDS: SIMVASTATIN 10 MG TABLET PO SCH (21:08)
[2018-10-12] MEDS: ARIPIPRAZOLE 10 MG TABLET PO SCH (21:08)
[2018-10-12 23:51] VITALS: BP 112/67
[2018-10-13] MEDS: IV NS 1000 ML 1,000 ML IV PRN (00:54)
[2018-10-13 03:40] VITALS: BP 103/62
[2018-10-13] MEDS: CARBIDOPA/LEVODOPA 25-100MG TABLET PO SCH ×4 (05:25→16:02)
[2018-10-13] MEDS: VANCOMYCIN FOR PO/GT/NG USE PO SCH ×4 (05:25→23:32)
[2018-10-13] MEDS: METRONIDAZOLE 500 MG TABLET PO SCH ×3 (05:25→21:14)
[2018-10-13] MEDS: LEVOTHYROXINE SODIUM 200 MCG TABLET PO SCH (06:10)
--- NOTE | 2018-10-13 06:15 | NUR ---
Slept well last night. Remains AOx4. Denies any pain or SOB. Controlled A. Fib on tele at 80/min. IV site on left AC intact and patent. IVF infusing. No adverse reaction noted from IV ABX. BMx1. Isolation precaution maintained. Safety measure maintained and call leyva within reach.
[2018-10-13 06:39] LABS: CREATININE 0.9 mg/dL (0.6-1.3); MAGNESIUM 1.8 mg/dL (1.8-2.4); POTASSIUM 3.1 mmol/L (3.5-5.1)
[2018-10-13 06:49] LABS: BASOPHILS % (AUTO) 0.4 % (0.0-2.0); EOSINOPHILS # (AUTO) 0.1 K/uL (0.0-0.7); EOSINOPHILS % (AUTO) 1.2 % (0.0-7.0); LYMPHOCYTES % (AUTO) 35.5 % (20.5-51.5); MEAN CORPUSCULAR HGB CONC 34 g/dL (32.3-35.6); MONOCYTES # (AUTO) 0.5 K/uL (2.0-10.0); MONOCYTES % (AUTO) 8.3 % (0.0-11.0); NEUTROPHILS # (AUTO) 3.1 K/uL (1.8-8.9); NEUTROPHILS % (AUTO) 54.6 % (38.5-71.5); PLATELET COUNT (AUTO) 180 K/uL (179-408); RED BLOOD CELL COUNT(AUTO) 4.34 MIL/uL (3.63-4.92); WHITE BLOOD COUNT (AUTO) 5.6 K/uL (3.8-11.8)
[2018-10-13 06:57] LABS: HEMOGLOBIN 12.6 g/dL (10.9-14.3)
[2018-10-13 06:58] LABS: HEMATOCRIT 37.3 % (31.2-41.9)
--- NOTE | 2018-10-13 07:25 | NUR ---
patient is in her bed, A/O x 4, on contact precaution IV NS running at 75 ml/hr, bed in low position, side rails up x2, locked, all safety and comfort measures are met,will continue with plan of care
[2018-10-13] MEDS: CALCITRIOL 0.25 MCG CAPSULE PO SCH (08:35)
[2018-10-13] MEDS: SERTRALINE HCL 100 MG TABLET PO SCH (08:35)
[2018-10-13] MEDS: PRAMIPEXOLE 1 MG TABLET PO SCH ×3 (08:35→17:10)
[2018-10-13] MEDS: FAMOTIDINE 20 MG TABLET PO SCH ×2 (08:35→17:10)
[2018-10-13] MEDS: CALCIUM CARB/VITAMIN D 500MG-200UNITS TABLET PO SCH ×3 (08:35→17:10)
[2018-10-13] MEDS: METOPROLOL SUCCINATE XL 25 MG TAB.SR.24H PO SCH (08:38)
[2018-10-13] MEDS: POTASSIUM CHLORIDE 50 ML IV SCH ×4 (08:56→11:24)
[2018-10-13] MEDS: TOPIRAMATE 25 MG TABLET PO SCH ×2 (09:22→21:14)
[2018-10-13 11:05] VITALS: BP 128/83
[2018-10-13 16:12] VITALS: BP 114/77
--- NOTE | 2018-10-13 16:13 | NUR ---
PATIENT IS RESTING COMFORTABLY , IV NS WAS DISCONTINUED PER MD ORDER WILL CONTINUE TO MONITOR
[2018-10-13] MEDS: CEFTRIAXONE 1 G in IV DEXTROSE 5% 50 ML IV SCH (17:35)
--- NOTE | 2018-10-13 18:27 | NUR ---
PATIENT IS RESTING ,PATIENT FREE OF DISTRESS, FAMILY IS AT BED SIDE, ALL NEEDS ARE MET, CHANGE OF SHIFT REPORT GIVEN
--- NOTE | 2018-10-13 19:40 | NUR ---
Received patient lying in bed with air mattress in place. Patient is awake, alert and oriented x 4.Patient is in room air, tolerated. She has an IV access at the left antecubital vein to saline lock, patent and intact. Noted SCD pumps in place on both legs.Patient on contact precaution for cdif, observed. No complaints at the moment. Bed in low position, locked, side rails up x 2, call light within reach. Noise and lights subdued. Will continue to monitor.
[2018-10-13 20:46] VITALS: BP 118/76
[2018-10-13] MEDS: ARIPIPRAZOLE 10 MG TABLET PO SCH (21:14)
[2018-10-13] MEDS: SIMVASTATIN 10 MG TABLET PO SCH (21:14)
[2018-10-13] MEDS: QUETIAPINE FUMARATE 100 MG TABLET PO SCH (21:14)
[2018-10-14 05:51] VITALS: BP 123/72
[2018-10-14] MEDS: VANCOMYCIN FOR PO/GT/NG USE PO SCH ×3 (06:01→17:13)
[2018-10-14] MEDS: CARBIDOPA/LEVODOPA 25-100MG TABLET PO SCH ×4 (06:01→17:07)
[2018-10-14] MEDS: LEVOTHYROXINE SODIUM 200 MCG TABLET PO SCH (06:01)
[2018-10-14] MEDS: METRONIDAZOLE 500 MG TABLET PO SCH ×3 (06:01→22:00)
--- NOTE | 2018-10-14 06:29 | NUR ---
Patient slept well throughout the night. Patient is in room air, tolerated. Still with IV access at the left antecubital vein to saline lock, patent and intact. Noted SCD pumps in place on both legs.Patient on contact precaution for cdiff, observed. No complaints made. Ensured safety and comfort.
[2018-10-14 06:58] LABS: BASOPHILS % (AUTO) 0.4 % (0.0-2.0); EOSINOPHILS # (AUTO) 0.1 K/uL (0.0-0.7); EOSINOPHILS % (AUTO) 1.5 % (0.0-7.0); HEMATOCRIT 35.9 % (31.2-41.9); HEMOGLOBIN 12.1 g/dL (10.9-14.3); LYMPHOCYTES # (AUTO) 0.9 K/uL (20.0-40.0); LYMPHOCYTES % (AUTO) 18.2 % (20.5-51.5); MEAN CORPUSCULAR HEMOGLOBIN 28.9 uug (24.7-32.8); MEAN CORPUSCULAR HGB CONC 34 g/dL (32.3-35.6); MEAN CORPUSCULAR VOLUME 85.7 fL (75.5-95.3); MONOCYTES # (AUTO) 0.4 K/uL (2.0-10.0); MONOCYTES % (AUTO) 7.6 % (0.0-11.0); NEUTROPHILS # (AUTO) 3.7 K/uL (1.8-8.9); NEUTROPHILS % (AUTO) 72.3 % (38.5-71.5); PLATELET COUNT (AUTO) 176 K/uL (179-408); RED BLOOD CELL COUNT(AUTO) 4.19 MIL/uL (3.63-4.92); WHITE BLOOD COUNT (AUTO) 5.1 K/uL (3.8-11.8)
[2018-10-14 07:07] LABS: CREATININE 0.8 mg/dL (0.6-1.3); POTASSIUM 3.4 mmol/L (3.5-5.1)
--- NOTE | 2018-10-14 07:30 | NUR ---
received report from herbarium curator nurse, patient in bed asleep, no distress noted at this time, bed in low position, side rails up x2, bed alarm on, call light in reach.
[2018-10-14] MEDS ORDERED: POTASSIUM CHLORIDE 20 MEQ TAB.PRT.SR PO ONE (08:45)
[2018-10-14] MEDS: PRAMIPEXOLE 1 MG TABLET PO SCH ×3 (09:24→17:06)
[2018-10-14] MEDS: TOPIRAMATE 25 MG TABLET PO SCH ×2 (09:24→20:31)
[2018-10-14] MEDS: SERTRALINE HCL 100 MG TABLET PO SCH (09:24)
[2018-10-14] MEDS: FAMOTIDINE 20 MG TABLET PO SCH ×2 (09:24→17:06)
[2018-10-14] MEDS: CALCIUM CARB/VITAMIN D 500MG-200UNITS TABLET PO SCH ×3 (09:24→17:06)
[2018-10-14] MEDS: CALCITRIOL 0.25 MCG CAPSULE PO SCH (09:25)
[2018-10-14] MEDS: METOPROLOL SUCCINATE XL 25 MG TAB.SR.24H PO SCH (09:32)
[2018-10-14 11:36] VITALS: BP 121/72
[2018-10-14 15:47] VITALS: BP 121/64
[2018-10-14] MEDS: CEFTRIAXONE 1 G in IV DEXTROSE 5% 50 ML IV SCH (17:12)
--- NOTE | 2018-10-14 17:56 | NUR ---
Patient has been cooperative with care, helps feed herself, but is unable to turn in bed, or assist with transfers. Currently bed in low position, side rails up x2, bed in low position, call light in reach.
--- NOTE | 2018-10-14 19:45 | NUR ---
RECEIVED PATIENT FROM THE DAY SHIFT NURSE. PATIENT IS AWAKE, ALERT, ORIENTED X4, BREATHING IS REGULAR AND NON-LABORED. NO ACUTE DISTRESS NOTED. DENIES PAIN. COMFORT AND SAFETY PROVIDED. CALL LIGHT IS WITHIN REACH. WILL CONTINUE TO MONITOR
[2018-10-14 20:08] VITALS: BP 129/74
[2018-10-14] MEDS: QUETIAPINE FUMARATE 100 MG TABLET PO SCH (20:31)
[2018-10-14] MEDS: SIMVASTATIN 10 MG TABLET PO SCH (20:31)
[2018-10-14] MEDS: ARIPIPRAZOLE 10 MG TABLET PO SCH (20:31)
[2018-10-15] MEDS: VANCOMYCIN FOR PO/GT/NG USE PO SCH ×3 (00:54→12:08)
[2018-10-15] MEDS: CARBIDOPA/LEVODOPA 25-100MG TABLET PO SCH ×3 (05:32→12:28)
[2018-10-15] MEDS: METRONIDAZOLE 500 MG TABLET PO SCH ×2 (05:32→13:09)
[2018-10-15] MEDS: LEVOTHYROXINE SODIUM 200 MCG TABLET PO SCH (06:33)
[2018-10-15 06:43] VITALS: BP 120/78
[2018-10-15 06:54] LABS: BASOPHILS % (AUTO) 0.5 % (0.0-2.0); EOSINOPHILS # (AUTO) 0.2 K/uL (0.0-0.7); HEMATOCRIT 36.6 % (31.2-41.9); HEMOGLOBIN 12.3 g/dL (10.9-14.3); LYMPHOCYTES # (AUTO) 1.6 K/uL (20.0-40.0); LYMPHOCYTES % (AUTO) 29.8 % (20.5-51.5); MEAN CORPUSCULAR HEMOGLOBIN 28.7 uug (24.7-32.8); MEAN CORPUSCULAR HGB CONC 34 g/dL (32.3-35.6); MEAN CORPUSCULAR VOLUME 85.5 fL (75.5-95.3); MONOCYTES # (AUTO) 0.4 K/uL (2.0-10.0); MONOCYTES % (AUTO) 8.4 % (0.0-11.0); NEUTROPHILS # (AUTO) 3.1 K/uL (1.8-8.9); NEUTROPHILS % (AUTO) 58.3 % (38.5-71.5); PLATELET COUNT (AUTO) 202 K/uL (179-408); RED BLOOD CELL COUNT(AUTO) 4.28 MIL/uL (3.63-4.92); WHITE BLOOD COUNT (AUTO) 5.2 K/uL (3.8-11.8)
--- NOTE | 2018-10-15 06:58 | NUR ---
PATIENT SLEPT WELL DURING THE NIGHT. URINATED 1 TIME. DENIES PAIN , NO SIGNS OF ACUTE DISTRESS. COMFORT AND SAFETY PROVIDED.
[2018-10-15 07:05] LABS: CREATININE 0.9 mg/dL (0.6-1.3); POTASSIUM 2.9 mmol/L (3.5-5.1)
--- NOTE | 2018-10-15 07:10 | NUR ---
PATIENT IS AWAKE, ALERT, ORIENTED X4 IN BED LAYING COMFORTABLY. NO LABORED BREATHING NOTED . NO ACUTE DISTRESS NOTED. NO C/O PAIN AT THIS TIME. COMFORT AND SAFETY PROVIDED AT ALL TIMES. CALL LIGHT IS WITHIN REACH. WILL CONTINUE TO MONITOR AND CONTINUE TREATMENT PLAN.
[2018-10-15] MEDS: POTASSIUM CHLORIDE 50 ML IV SCH ×4 (08:36→11:31)
[2018-10-15] MEDS: PRAMIPEXOLE 1 MG TABLET PO SCH ×2 (08:48→12:28)
[2018-10-15] MEDS: FAMOTIDINE 20 MG TABLET PO SCH (08:48)
[2018-10-15] MEDS: SERTRALINE HCL 100 MG TABLET PO SCH (08:49)
[2018-10-15] MEDS: CALCIUM CARB/VITAMIN D 500MG-200UNITS TABLET PO SCH ×2 (08:49→12:28)
[2018-10-15] MEDS: METOPROLOL SUCCINATE XL 25 MG TAB.SR.24H PO SCH (08:49)
[2018-10-15] MEDS: CALCITRIOL 0.25 MCG CAPSULE PO SCH (08:49)
[2018-10-15] MEDS: TOPIRAMATE 25 MG TABLET PO SCH (08:49)
[2018-10-15] MEDS ORDERED: VANC125C5 PO (09:34)
[2018-10-15] MEDS ORDERED: METR500T PO (09:34)
[2018-10-15] MEDS ORDERED: ONDA4TAB5 PO (09:34)
[2018-10-15 11:36] VITALS: BP 127/77
--- NOTE | 2018-10-15 14:55 | NUR ---
RECEIVED DISCHARGE ORDER TO HOME WITH HOME HEALTH, DISCHARGE INSTRUCTION GIVEN TO PATIENT AND PRESCRIBED MEDICATIONS , VERBALIZED UNDERSTANDING, NO S/S OF ACUTE DISTRESS NOTED AND NO C/O PAIN AT THIS TIME. IV AND ID BAND REMOVED, BELONGINGS ACCOUNTED FOR AND SIGNED. QUESTIONS AND CONCERNS ADDRESSED. DISCHARGED TO HOME VIA PRIVATE CAR WITH 2 SONS.
== END 2018-10-15 14:55 | disposition home health service (06) | DRG 371 ==
LOC: ER 09:30 → TELE3 11:40 → MEDSURG3 10-13 15:48
PROVIDERS: ADMIT Nurse Practitioner Acute Care; ATTEND Nurse Practitioner Acute Care
DX: A04.72 Enterocolitis due to Clostridium difficile, not specified as recurrent (principal); R53.2 Functional quadriplegia; N17.9 Acute kidney failure, unspecified; E44.0 Moderate protein-calorie malnutrition; J81.1 Chronic pulmonary edema; E86.0 Dehydration; I48.2 Chronic atrial fibrillation; G20 Parkinson's disease; E03.9 Hypothyroidism, unspecified; Z87.891 Personal history of nicotine dependence; Z85.038 Personal history of other malignant neoplasm of large intestine; Z86.73 Personal history of transient ischemic attack (TIA), and cerebral infarction without residual deficits; E83.42 Hypomagnesemia; E87.6 Hypokalemia; Z68.32 Body mass index [BMI] 32.0-32.9, adult; Z71.3 Dietary counseling and surveillance; I10 Essential (primary) hypertension; F32.9 Major depressive disorder, single episode, unspecified; Z79.01 Long term (current) use of anticoagulants; E66.9 Obesity, unspecified; K21.9 Gastro-esophageal reflux disease without esophagitis; F02.80 Dementia in other diseases classified elsewhere, unspecified severity, without behavioral disturbance, psychotic disturbance, mood disturbance, and anxiety; Z79.899 Other long term (current) drug therapy
CPT/HCPCS: 36415; 70030-TC; 71045; 83605; 83690; 83735; 84100; 84443; 85025; 85730; 87040; 87086; 93005; 97110; 97116; 97165; 97530; 97535; A4663; C1758; G0378; J0696; J3370; J3475; J3480; J7030; J7060

== ENCOUNTER 2018-10-31 18:14 | Inpatient (IN) | payer MEDICARE, MEDICAID ==
[~2018-10-31] VITALS: Ht 160 cm; Wt 80.3 kg
[~2018-10-31 18:14] MED LIST changes: +CARB-93 PO; -CARB1CAP3 PO; -CEPH500C2 PO; +METR500T PO; +ONDA4TAB5 PO; +SIMV10TA2 PO; +VANC125C5 PO
[2018-10-31] MEDS ORDERED: IV NORMAL SALINE 1000 ML BAG IV ONE (19:00)
--- NOTE | 2018-10-31 19:14 | NUR ---
HAND OFF REPORT GIVEN TO JOE ORDAZ
--- NOTE | 2018-10-31 19:20 | NUR ---
Received report from Kamlesh ORDAZ, assumed care of pt.,
[2018-10-31 19:25] LABS: BASOPHILS % (AUTO) 0.5 % (0.0-2.0); EOSINOPHILS % (AUTO) 0.1 % (0.0-7.0); HEMATOCRIT 37.8 % (31.2-41.9); HEMOGLOBIN 12.4 g/dL (10.9-14.3); LYMPHOCYTES # (AUTO) 1.3 K/uL (20.0-40.0); LYMPHOCYTES % (AUTO) 16.5 % (20.5-51.5); MEAN CORPUSCULAR HEMOGLOBIN 28.8 uug (24.7-32.8); MEAN CORPUSCULAR HGB CONC 33 g/dL (32.3-35.6); MEAN CORPUSCULAR VOLUME 87.6 fL (75.5-95.3); MONOCYTES # (AUTO) 0.5 K/uL (2.0-10.0); MONOCYTES % (AUTO) 6.1 % (0.0-11.0); NEUTROPHILS # (AUTO) 5.9 K/uL (1.8-8.9); NEUTROPHILS % (AUTO) 76.8 % (38.5-71.5); PLATELET COUNT (AUTO) 213 K/uL (179-408); RED BLOOD CELL COUNT(AUTO) 4.31 MIL/uL (3.63-4.92); WHITE BLOOD COUNT (AUTO) 7.7 K/uL (3.8-11.8)
[2018-10-31 19:34] LABS: CREATININE 0.9 mg/dL (0.6-1.3); POTASSIUM 4.2 mmol/L (3.5-5.1)
[2018-10-31 19:40] LABS: BILIRUBIN,DIRECT 0.2 mg/dL (0.0-0.2); BILIRUBIN,TOTAL 0.4 mg/dL (0.2-1.0); TOTAL PROTEIN, SERUM 8.8 g/dL (6.4-8.2)
[2018-10-31] MEDS ORDERED: MAGNESIUM HYDROXIDE 30 ML LIQUID UDC PO PRN (21:15)
[2018-10-31] MEDS ORDERED: ACETAMINOPHEN 325 MG TABLET PO PRN (21:15)
[2018-10-31] MEDS ORDERED: Z GUARD REMEDY PASTE 57 GM TUBE TOP PRN (21:15)
[2018-10-31] MEDS ORDERED: ONDANSETRON 4 MG/2 ML VIAL IV PRN (21:15)
[2018-10-31] MEDS ORDERED: HYDROCODONE/APAP 5-325MG TABLET PO PRN (21:15)
[2018-10-31] MEDS ORDERED: IV NS 1000 ML 1,000 ML IV SCH (21:45)
[2018-10-31] MEDS ORDERED: IV NS 1000 ML 1,000 ML IV ONE (21:45)
--- NOTE | 2018-10-31 22:06 | NUR ---
Gave report to Roseann ORDAZ,
--- NOTE | 2018-10-31 23:05 | NUR ---
RECEIVED PATIENT FROM ER
--- NOTE | 2018-10-31 23:17 | NUR ---
Pt. taken off unit via stretcher for admit to 305 tele w/ Roseann ORDAZ, VSS, NAD
[2018-10-31] MEDS ORDERED: METRONIDAZOLE 500 MG/NS 100ML 100 ML IV ONE (23:35)
[2018-10-31] MEDS: METRONIDAZOLE 500 MG/NS 100ML 500 MG in PREMIXED 1 EACH IV SCH (23:37)
[2018-11-01 00:08] VITALS: BP 98/56
[2018-11-01] MEDS ORDERED: IV NS 1000 ML 1,000 ML IV SCH (03:30)
[2018-11-01 04:00] VITALS: BP 119/66
--- NOTE | 2018-11-01 04:41 | NUR ---
COLLECTED MRSA SWAB FROM BOTH NARES AND TRANSPORTED SPECIMEN TO LAB
--- NOTE | 2018-11-01 04:57 | NUR ---
PATIENT SLEPT COMFORTABLY THROUGHOUT SHIFT. SAFETY AND FALL PRECAUTIONS REMAIN IN PLACE. BED IN LOWEST POSITION WITH BRAKE APPLIED. 2 SIDE RAILS UP AND IN LOCKED POSITION. BED ALARM ACTIVATED. IV FLUIDS RUNNING AT 100 ml/HR ORDERED AND PATIENT IS TOLERATING WELL. CALL LIGHT WITHIN REACH AT ALL TIMES. VS WNL AND PATIENT IS STABLE.
[2018-11-01] MEDS ORDERED: METRONIDAZOLE 500 MG/NS 100ML 100 ML IV ONE (05:22)
[2018-11-01] MEDS: METRONIDAZOLE 500 MG/NS 100ML 500 MG in PREMIXED 1 EACH IV SCH ×3 (06:04→21:09)
[2018-11-01] MEDS: LEVOTHYROXINE SODIUM 200 MCG TABLET PO SCH (06:13)
[2018-11-01 06:15] LABS: BASOPHILS % (AUTO) 0.4 % (0.0-2.0); EOSINOPHILS % (AUTO) 0.3 % (0.0-7.0); HEMATOCRIT 36.8 % (31.2-41.9); HEMOGLOBIN 12.2 g/dL (10.9-14.3); LYMPHOCYTES # (AUTO) 1.8 K/uL (20.0-40.0); LYMPHOCYTES % (AUTO) 25.6 % (20.5-51.5); MEAN CORPUSCULAR HEMOGLOBIN 28.9 uug (24.7-32.8); MEAN CORPUSCULAR HGB CONC 33 g/dL (32.3-35.6); MEAN CORPUSCULAR VOLUME 87.2 fL (75.5-95.3); MONOCYTES # (AUTO) 0.9 K/uL (2.0-10.0); MONOCYTES % (AUTO) 13.3 % (0.0-11.0); NEUTROPHILS # (AUTO) 4.3 K/uL (1.8-8.9); NEUTROPHILS % (AUTO) 60.4 % (38.5-71.5); PLATELET COUNT (AUTO) 192 K/uL (179-408); RED BLOOD CELL COUNT(AUTO) 4.22 MIL/uL (3.63-4.92); WHITE BLOOD COUNT (AUTO) 7.1 K/uL (3.8-11.8)
[2018-11-01 06:18] LABS: CREATININE 0.7 mg/dL (0.6-1.3); MAGNESIUM 1.5 mg/dL (1.8-2.4); PHOSPHOROUS 3.8 mg/dL (2.5-4.9); POTASSIUM 3.4 mmol/L (3.5-5.1)
[2018-11-01] MEDS ORDERED: VANCOMYCIN FOR PO/GT/NG USE PO SCH ×2 (07:00)
--- NOTE | 2018-11-01 07:15 | NUR ---
RECEIVED PATIENT ON BED, ASLEEP, AAOX3 NO ACUTE DISTRESS NOTED. ON CONTACT ISOLATION TO R/O C.DIFF. IV ACCESS ON RIGHT HAND #22 INTACT AND PATENT RUNNING NS @ 100CC/HR INFUSING WELL. PATIENT ON NPO EXCEPT MEDS. NO COMPLAINTS OF PAIN/DISCOMFORT AT THIS TIME. CALL LIGHT WITHIN REACH. WILL CONTINUE TO MONITOR CLOSELY.
[2018-11-01] MEDS: VANCOMYCIN FOR PO/GT/NG USE PO SCH ×4 (08:08→23:14)
[2018-11-01] MEDS: PRAMIPEXOLE 1 MG TABLET PO SCH ×3 (08:10→17:46)
[2018-11-01] MEDS: TOPIRAMATE 25 MG TABLET PO SCH ×2 (08:11→18:04)
[2018-11-01] MEDS: METOPROLOL SUCCINATE XL 50 MG TAB.SR.24H PO SCH (08:15)
[2018-11-01] MEDS: CALCIUM CARB/VITAMIN D 500MG-200UNITS TABLET PO SCH ×3 (08:17→17:46)
[2018-11-01] MEDS: SERTRALINE HCL 100 MG TABLET PO SCH (08:17)
[2018-11-01] MEDS: POTASSIUM CHLORIDE 20 MEQ TAB.PRT.SR PO SCH ×2 (08:17→17:46)
[2018-11-01] MEDS: FAMOTIDINE 20 MG TABLET PO SCH ×2 (08:17→17:46)
[2018-11-01] MEDS: CALCITRIOL 0.25 MCG CAPSULE PO SCH (08:18)
[2018-11-01] MEDS ORDERED: POTASSIUM CHLORIDE 20 MEQ TAB.PRT.SR PO ONE (08:45)
[2018-11-01] MEDS ORDERED: APIXABAN 5 MG TABLET PO SCH (09:00)
[2018-11-01] MEDS ORDERED: Medication Not On Formulary EA (Calcitriol 0.5 MCG) PO SCH (09:00)
[2018-11-01] MEDS ORDERED: CARBIDOPA/LEVODOPA 25-100MG TABLET PO SCH ×2 (09:00)
[2018-11-01] MEDS: MAGNESIUM SULFATE/D5W 100 ML IV SCH ×3 (09:28→11:06)
[2018-11-01] MEDS ORDERED: APIXABAN 5 MG TABLET PO ONE (11:00)
[2018-11-01 11:34] VITALS: BP 111/73
[2018-11-01] MEDS: IV NS 1000 ML 1,000 ML IV PRN (12:31)
[2018-11-01] MEDS: CARBIDOPA/LEVODOPA 25-100MG TABLET PO SCH ×3 (13:26→21:10)
--- NOTE | 2018-11-01 13:50 | NUR ---
WOUND CARE CONSULT: PT PRESENTS WITH INCONTINENCE ASSOCIATED REDNESS TO GLUTEAL CREASE AND GROIN AREAS, PRESENT ON ADMISSION. PEELING SKIN NOTED TO LEFT HEEL. RECOMMENDATIONS MADE FOR SKIN PROTECTION AND CARE. DISCUSSED WITH NURSING STAFF. WILL SEE PRN. SHEN IN AGREEMENT WITH PLAN OF CARE.
--- NOTE | 2018-11-01 13:53 | NUR ---
SEEN AND EXAMINED BY MARIO ORDAZSTEAM DRIER TENDER NURSE.
--- NOTE | 2018-11-01 14:06 | NUR ---
FIRST STEP LOW AIRLOSS MATTRESS ORDERED AND DISCUSSED WITH EAR MUFF ASSEMBLER.
--- NOTE | 2018-11-01 15:00 | NUR ---
PATIENT POSITIVE FOR C.DIFF PER ARY FROM [facility]. PATIENT ALREADY ON CONTACT ISOLATION.
[2018-11-01 16:02] VITALS: BP 106/67
--- NOTE | 2018-11-01 18:54 | NUR ---
PATIENT REMAINED STABLE THROUGHOUT SHIFT, NO SIGNIFICANT AMANUEL. ON CONTACT ISOLATION, PATIENT STILL NOTED WITH DIARRHEA BM X 3. NOW ON JULIAN MATTRESS. ALL NEEDS ATTENDED AND ANTICIPATED. CALL LIGHT WITHIN REACH. WILL ENDORSE ACCORDINGLY
--- NOTE | 2018-11-01 20:00 | NUR ---
RECEIVED REPORT FROM AM RN. PATIENT ASLEEP IN BED, RESTING COMFORTABLY, BUT AROUSES TO NAME. SAFETY AND FALL PRECAUTION MEASURES IN PLACE. BED IN LOWEST POSITION WITH BRAKE APPLIED. 2 SIDE RAILS ARE UP AND IN LOCKED POSITION. CONTACT ISOLATION IN PLACE FOR + C-DIFF RESULTS. PATIENT REMAINS NPO EXCEPT FOR MEDICATIONS. VS ARE WNL AND PATIENT IS STABLE. WILL CONTINUE TO MONITOR.
[2018-11-01 20:03] VITALS: BP 120/74
[2018-11-01] MEDS: QUETIAPINE FUMARATE 100 MG TABLET PO SCH (21:09)
[2018-11-01] MEDS: ARIPIPRAZOLE 10 MG TABLET PO SCH (21:09)
[2018-11-01] MEDS: SIMVASTATIN 10 MG TABLET PO SCH (21:10)
[2018-11-02 00:14] VITALS: BP 125/62
[2018-11-02] MEDS: IV NS 1000 ML 1,000 ML IV PRN ×2 (02:24→13:43)
[2018-11-02 04:00] VITALS: BP 97/59
[2018-11-02] MEDS: METRONIDAZOLE 500 MG/NS 100ML 500 MG in PREMIXED 1 EACH IV SCH ×3 (05:15→21:07)
[2018-11-02] MEDS: VANCOMYCIN FOR PO/GT/NG USE PO SCH ×4 (05:15→23:09)
[2018-11-02] MEDS: LEVOTHYROXINE SODIUM 200 MCG TABLET PO SCH (06:01)
[2018-11-02 06:17] LABS: BASOPHILS % (AUTO) 0.6 % (0.0-2.0); EOSINOPHILS % (AUTO) 0.7 % (0.0-7.0); HEMATOCRIT 36.2 % (31.2-41.9); HEMOGLOBIN 11.9 g/dL (10.9-14.3); LYMPHOCYTES % (AUTO) 32.2 % (20.5-51.5); MEAN CORPUSCULAR HGB CONC 33 g/dL (32.3-35.6); MEAN CORPUSCULAR VOLUME 87.7 fL (75.5-95.3); MONOCYTES # (AUTO) 0.5 K/uL (2.0-10.0); MONOCYTES % (AUTO) 8.2 % (0.0-11.0); NEUTROPHILS # (AUTO) 3.7 K/uL (1.8-8.9); NEUTROPHILS % (AUTO) 58.3 % (38.5-71.5); PLATELET COUNT (AUTO) 179 K/uL (179-408); RED BLOOD CELL COUNT(AUTO) 4.12 MIL/uL (3.63-4.92); WHITE BLOOD COUNT (AUTO) 6.3 K/uL (3.8-11.8)
--- NOTE | 2018-11-02 06:22 | NUR ---
PATIENT SLEPT COMFORTABLY THROUGHOUT NIGHT WITH NO COMPLAINTS OF PAIN OR DISTRESS VERBALIZED OR OBSERVED. ALL PRESCRIBED MEDICATIONS AND IV ANTIBIOTICS PROVIDED AND TOLERATED WELL. PATIENT REMAINS NPO EXCEPT FOR PRESCRIBED MEDICATIONS. ALL SAFETY AND FALL PRECAUTION MEASURES ARE IN PLACE. BED IN LOWEST POSITION WITH BRAKE APPLIED. 2 SIDE RAILS UP AND IN LOCKED POSITION. CALL LIGHT AND PERSONAL BELONGINGS WITHIN REACH AT ALL TIMES.
[2018-11-02 06:35] LABS: CREATININE 0.7 mg/dL (0.6-1.3); POTASSIUM 3.2 mmol/L (3.5-5.1)
--- NOTE | 2018-11-02 07:39 | NUR ---
NO SS OF PAIN OR SOB CONTINUE NPO? IVF NS AT 100 ML. CONTINUE WITH FLAGYL WITH NO SS OF ALLERGY REACTION. CONTROLLED AFIB ON MONITOR
[2018-11-02] MEDS ORDERED: POTASSIUM CHLORIDE 20 MEQ TAB.PRT.SR PO ONE (08:30)
[2018-11-02] MEDS: CALCITRIOL 0.25 MCG CAPSULE PO SCH (08:35)
[2018-11-02] MEDS: TOPIRAMATE 25 MG TABLET PO SCH ×2 (08:36→16:25)
[2018-11-02] MEDS: FAMOTIDINE 20 MG TABLET PO SCH ×2 (08:36→16:25)
[2018-11-02] MEDS: CALCIUM CARB/VITAMIN D 500MG-200UNITS TABLET PO SCH ×3 (08:36→16:24)
[2018-11-02] MEDS: SERTRALINE HCL 100 MG TABLET PO SCH (08:36)
[2018-11-02] MEDS: METOPROLOL SUCCINATE XL 50 MG TAB.SR.24H PO SCH (08:36)
[2018-11-02] MEDS: PRAMIPEXOLE 1 MG TABLET PO SCH ×3 (08:37→16:25)
[2018-11-02] MEDS: CARBIDOPA/LEVODOPA 25-100MG TABLET PO SCH ×4 (08:37→20:30)
[2018-11-02] MEDS: POTASSIUM CHLORIDE 20 MEQ TAB.PRT.SR PO SCH ×4 (08:52→16:26)
[2018-11-02 11:29] VITALS: BP 126/67
--- NOTE | 2018-11-02 12:00 | NUR ---
SEEN BY DR RILEY FOR FOLLOW-UP SEE NOTES. CONTINUE WITH CURRENT TX PLAN
[2018-11-02 16:15] VITALS: BP 109/65
--- NOTE | 2018-11-02 17:12 | NUR ---
CONTINUE IV ANTIBIOTIC ORDERED, OHYSICAL THERAPY FOR STRENGTHENING EXERCISES SEE NOTES
--- NOTE | 2018-11-02 19:00 | NUR ---
RECEIVED PATIENT ASLEEP IN BED, RESTING COMFORTABLY, BUT AROUSES TO NAME. SAFETY AND FALL PRECAUTION MEASURES IN PLACE. BED IN LOWEST POSITION WITH BRAKE APPLIED. 2 SIDE RAILS ARE UP AND IN LOCKED POSITION. CONTACT ISOLATION IN PLACE FOR + C-DIFF AND MRSA OF NARSE. PATIENT HAS BEEN CHANGED FROM NPO TO CLEAR LIQUID DIET. WILL CONTINUE TO MONITOR.
[2018-11-02] MEDS: QUETIAPINE FUMARATE 100 MG TABLET PO SCH (20:29)
[2018-11-02] MEDS: SIMVASTATIN 10 MG TABLET PO SCH (20:29)
[2018-11-02] MEDS: MUPIROCIN 2% OINT 22 GM TUBE NS SCH (20:29)
[2018-11-02] MEDS: ARIPIPRAZOLE 10 MG TABLET PO SCH (20:29)
[2018-11-02 20:31] VITALS: BP 100/66
[2018-11-03] MEDS: IV NS 1000 ML 1,000 ML IV PRN ×2 (03:46→16:03)
[2018-11-03] MEDS: METRONIDAZOLE 500 MG/NS 100ML 500 MG in PREMIXED 1 EACH IV SCH ×3 (05:07→21:23)
[2018-11-03 05:08] VITALS: BP 115/73
[2018-11-03] MEDS: VANCOMYCIN FOR PO/GT/NG USE PO SCH ×3 (05:27→17:28)
[2018-11-03] MEDS: LEVOTHYROXINE SODIUM 200 MCG TABLET PO SCH (06:07)
--- NOTE | 2018-11-03 06:09 | NUR ---
PATIENT SLEPT COMFORTABLY THROUGHOUT NIGHT WITH NO COMPLAINTS OF PAIN OR ACUTE DISTRESS. IV SITE ON RIGHT HAND BECAME INFILTRATED AND WAS REMOVED WITH NEW IV SITE ESTABLISHED ON LEFT FOREARM WITH 22g SALINE LOCK. ALL PRESCRIBED ANTIBIOTICS PROVIDED ORDERED AND TOLERATED WELL WITH NO ADVERSE EFFECTS NOTED OR OBSERVED. ALL SAFETY AND FALL PRECAUTIONS IN PLACE. BED IN LOWEST POSITION AND BRAKE APPLIED. 2 SIDE RAILS UP AND IN LOCKED POSITION. CALL LIGHT AND PERSONAL ITEMS WITHIN REACH AT ALL TIMES.
[2018-11-03] MEDS: TOPIRAMATE 25 MG TABLET PO SCH ×2 (09:02→17:24)
[2018-11-03] MEDS: PRAMIPEXOLE 1 MG TABLET PO SCH ×3 (09:02→17:24)
[2018-11-03] MEDS: FAMOTIDINE 20 MG TABLET PO SCH ×2 (09:03→17:24)
[2018-11-03] MEDS: POTASSIUM CHLORIDE 20 MEQ TAB.PRT.SR PO SCH ×2 (09:03→17:24)
[2018-11-03] MEDS: CARBIDOPA/LEVODOPA 25-100MG TABLET PO SCH ×4 (09:03→21:22)
[2018-11-03] MEDS: CALCIUM CARB/VITAMIN D 500MG-200UNITS TABLET PO SCH ×3 (09:03→17:24)
[2018-11-03] MEDS: SERTRALINE HCL 100 MG TABLET PO SCH (09:03)
[2018-11-03] MEDS: METOPROLOL SUCCINATE XL 50 MG TAB.SR.24H PO SCH (09:14)
[2018-11-03 09:15] LABS: CREATININE 0.7 mg/dL (0.6-1.3)
[2018-11-03] MEDS: CALCITRIOL 0.25 MCG CAPSULE PO SCH (09:18)
[2018-11-03 09:24] LABS: BASOPHILS % (AUTO) 0.5 % (0.0-2.0); EOSINOPHILS # (AUTO) 0.1 K/uL (0.0-0.7); EOSINOPHILS % (AUTO) 1.2 % (0.0-7.0); HEMATOCRIT 34.7 % (31.2-41.9); HEMOGLOBIN 11.6 g/dL (10.9-14.3); LYMPHOCYTES # (AUTO) 1.3 K/uL (20.0-40.0); LYMPHOCYTES % (AUTO) 21.8 % (20.5-51.5); MEAN CORPUSCULAR HEMOGLOBIN 28.9 uug (24.7-32.8); MEAN CORPUSCULAR HGB CONC 33 g/dL (32.3-35.6); MEAN CORPUSCULAR VOLUME 86.3 fL (75.5-95.3); MONOCYTES # (AUTO) 0.4 K/uL (2.0-10.0); MONOCYTES % (AUTO) 6.9 % (0.0-11.0); NEUTROPHILS # (AUTO) 4.1 K/uL (1.8-8.9); NEUTROPHILS % (AUTO) 69.6 % (38.5-71.5); PLATELET COUNT (AUTO) 205 K/uL (179-408); RED BLOOD CELL COUNT(AUTO) 4.02 MIL/uL (3.63-4.92); WHITE BLOOD COUNT (AUTO) 5.9 K/uL (3.8-11.8)
[2018-11-03] MEDS: MUPIROCIN 2% OINT 22 GM TUBE NS SCH ×2 (09:27→21:21)
--- NOTE | 2018-11-03 10:27 | NUR ---
Received patient awake and orientedx3-4. no complaint of pain/discomfort. not in distress. 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 no diarrhea noted. Seen and examined by MD Madden. Diet clear liquids progress to regular diet. Calcium lab result 5.6 critical low relayed to MD Madden. Ordered albumin lab test. awaiting result. Continue on NS 100ml/hr, infusing well. no signs of infiltration on IV site left forearm G22. not in distress. will continue chang
[2018-11-03 12:06] VITALS: BP 112/83
[2018-11-03] MEDS ORDERED: CALCIUM GLUCONATE IV 2 GM in IV DEXTROSE 5% 250 ML IV ONE (12:30)
--- NOTE | 2018-11-03 16:20 | NUR ---
Patient noted with 3x LBM, no foul smell noted. MD Madden aware. Ordered switch back diet from regular to clear liquid diet and observe. will continue monitor
[2018-11-03 16:21] VITALS: BP 118/72
[2018-11-03 19:33] VITALS: BP 99/59
[2018-11-03] MEDS: ARIPIPRAZOLE 10 MG TABLET PO SCH (21:22)
[2018-11-03] MEDS: SIMVASTATIN 10 MG TABLET PO SCH (21:22)
[2018-11-03] MEDS: QUETIAPINE FUMARATE 100 MG TABLET PO SCH (21:22)
--- NOTE | 2018-11-03 21:59 | NUR ---
charge nurse informed that the patient heart rate to 126/min, but goes down to 96, range, asked if need to call the physician m ordered no need to call physgelyian
--- NOTE | 2018-11-03 22:58 | NUR ---
reprt given to another rn for further care
--- NOTE | 2018-11-03 23:00 | NUR ---
HANDS OFF REPOST RECIEVED FROM SUSHMA LOZANO. RECEIVED PT RESTING ON BED COMFORTABLY. PT SHOWS NO SIGNS OF ACUTE DISTRESS. PT IV INTACT AND PATENT. PT ON ISOLATION FOR C-DIFF AND MRSA-NARES. CALL LIGHT WITHIN REACH. SAFETY AND COMFORT PROVIDED. WILL CONTINUE TO MONITOR.
[2018-11-04] MEDS: VANCOMYCIN FOR PO/GT/NG USE PO SCH ×4 (00:13→17:06)
[2018-11-04 03:14] VITALS: BP 120/81
[2018-11-04] MEDS: IV NS 1000 ML 1,000 ML IV PRN ×2 (03:52→16:00)
[2018-11-04 05:36] LABS: BASOPHILS % (AUTO) 0.8 % (0.0-2.0); EOSINOPHILS # (AUTO) 0.1 K/uL (0.0-0.7); EOSINOPHILS % (AUTO) 1.9 % (0.0-7.0); HEMATOCRIT 34.6 % (31.2-41.9); HEMOGLOBIN 11.6 g/dL (10.9-14.3); LYMPHOCYTES # (AUTO) 2.1 K/uL (20.0-40.0); LYMPHOCYTES % (AUTO) 39.1 % (20.5-51.5); MEAN CORPUSCULAR HEMOGLOBIN 28.9 uug (24.7-32.8); MEAN CORPUSCULAR HGB CONC 34 g/dL (32.3-35.6); MEAN CORPUSCULAR VOLUME 85.9 fL (75.5-95.3); MONOCYTES # (AUTO) 0.5 K/uL (2.0-10.0); MONOCYTES % (AUTO) 9.7 % (0.0-11.0); NEUTROPHILS # (AUTO) 2.6 K/uL (1.8-8.9); NEUTROPHILS % (AUTO) 48.5 % (38.5-71.5); PLATELET COUNT (AUTO) 207 K/uL (179-408); RED BLOOD CELL COUNT(AUTO) 4.02 MIL/uL (3.63-4.92); WHITE BLOOD COUNT (AUTO) 5.3 K/uL (3.8-11.8)
[2018-11-04] MEDS: METRONIDAZOLE 500 MG/NS 100ML 500 MG in PREMIXED 1 EACH IV SCH ×3 (05:37→21:06)
[2018-11-04 05:46] LABS: CREATININE 0.8 mg/dL (0.6-1.3); POTASSIUM 3.5 mmol/L (3.5-5.1)
[2018-11-04] MEDS: LEVOTHYROXINE SODIUM 200 MCG TABLET PO SCH (06:00)
--- NOTE | 2018-11-04 06:31 | NUR ---
PT SLEPT THROUGHOUT THE SHIFT. PT SHOWS NO SIGNS OF ACUTE DISTRESS. PT TURNED AND REPOSITIONED. PRESCRIBED MEDICATION GIVEN AND PT TOLERATED IT WELL. SAFETY AND COMFORT PROVIDED. ALL NEEDS ARE MET. WILL EDNORSE ACCORDINGLY TO INCOMING NURSE FOR CONTINUITY OF CARE.
[2018-11-04 08:30] VITALS: BP 141/82
[2018-11-04] MEDS: CALCITRIOL 0.25 MCG CAPSULE PO SCH (08:59)
[2018-11-04] MEDS: PRAMIPEXOLE 1 MG TABLET PO SCH ×3 (08:59→17:05)
[2018-11-04] MEDS: FAMOTIDINE 20 MG TABLET PO SCH ×2 (08:59→17:06)
[2018-11-04] MEDS: MUPIROCIN 2% OINT 22 GM TUBE NS SCH ×2 (08:59→21:07)
[2018-11-04] MEDS: TOPIRAMATE 25 MG TABLET PO SCH ×2 (08:59→17:05)
[2018-11-04] MEDS: METOPROLOL SUCCINATE XL 50 MG TAB.SR.24H PO SCH (09:00)
[2018-11-04] MEDS: CALCIUM CARB/VITAMIN D 500MG-200UNITS TABLET PO SCH ×3 (09:00→17:06)
[2018-11-04] MEDS: POTASSIUM CHLORIDE 20 MEQ TAB.PRT.SR PO SCH ×2 (09:00→17:06)
[2018-11-04] MEDS: CARBIDOPA/LEVODOPA 25-100MG TABLET PO SCH ×4 (09:01→21:05)
[2018-11-04] MEDS: SERTRALINE HCL 100 MG TABLET PO SCH (09:01)
[2018-11-04 11:26] VITALS: BP 122/67
[2018-11-04 15:32] VITALS: BP 121/83
--- NOTE | 2018-11-04 17:39 | NUR ---
Resting in bed, caregiver and son at bedside. No c/o pain. Tolerating clear liquids. Turned and repositioned for comfort. Air mattress. Bed low and locked. Call light within reached. will cont to monitor.
--- NOTE | 2018-11-04 19:30 | NUR ---
PATIENT RECEIVED LYING IN BED. A/O X3. NO SIGNS OF ACUTE DISTRESS. PROVIDED COMFORT MEASURES. BED IN LOWEST POSITION. SIDE RAILS UP X2. BED ALARM ON. CONTINUED ON CLEAR LIQUIDS. WILL START REGULAR DIET IN THE AM.
[2018-11-04 20:45] VITALS: BP 135/78
[2018-11-04] MEDS: SIMVASTATIN 10 MG TABLET PO SCH (21:05)
[2018-11-04] MEDS: QUETIAPINE FUMARATE 100 MG TABLET PO SCH (21:05)
[2018-11-04] MEDS: ARIPIPRAZOLE 10 MG TABLET PO SCH (21:06)
[2018-11-05] MEDS: VANCOMYCIN FOR PO/GT/NG USE PO SCH ×4 (00:15→17:28)
[2018-11-05] MEDS: IV NS 1000 ML 1,000 ML IV PRN ×2 (02:38→18:53)
[2018-11-05 05:28] VITALS: BP 128/77
--- NOTE | 2018-11-05 05:52 | NUR ---
PATIENT SLEEPING INTERMITTENTLY. A/O X3. NO SIGNS OF ACUTE DISTRESS. COMFORT MEASURES PROVIDED. BED IN LOWEST POSITION. SIDE RAILX2. STARTING REGULAR DIET FOR BREAKFAST AND OBSERVE FOR TOLERATION FOR POSSIBLE DISCHARGE.
[2018-11-05] MEDS: LEVOTHYROXINE SODIUM 200 MCG TABLET PO SCH (06:10)
[2018-11-05] MEDS: METRONIDAZOLE 500 MG/NS 100ML 500 MG in PREMIXED 1 EACH IV SCH ×3 (06:10→22:14)
[2018-11-05 06:11] LABS: BASOPHILS % (AUTO) 0.4 % (0.0-2.0); EOSINOPHILS # (AUTO) 0.1 K/uL (0.0-0.7); EOSINOPHILS % (AUTO) 1.6 % (0.0-7.0); HEMATOCRIT 35.2 % (31.2-41.9); HEMOGLOBIN 11.9 g/dL (10.9-14.3); LYMPHOCYTES # (AUTO) 2.3 K/uL (20.0-40.0); LYMPHOCYTES % (AUTO) 39.2 % (20.5-51.5); MEAN CORPUSCULAR HEMOGLOBIN 29.1 uug (24.7-32.8); MEAN CORPUSCULAR HGB CONC 34 g/dL (32.3-35.6); MEAN CORPUSCULAR VOLUME 85.7 fL (75.5-95.3); MONOCYTES # (AUTO) 0.4 K/uL (2.0-10.0); MONOCYTES % (AUTO) 7.7 % (0.0-11.0); NEUTROPHILS % (AUTO) 51.1 % (38.5-71.5); PLATELET COUNT (AUTO) 211 K/uL (179-408); WHITE BLOOD COUNT (AUTO) 5.8 K/uL (3.8-11.8)
[2018-11-05 06:33] LABS: CREATININE 0.9 mg/dL (0.6-1.3); POTASSIUM 2.9 mmol/L (3.5-5.1)
--- NOTE | 2018-11-05 07:35 | NUR ---
[facility] CONTACTED TO [facility] DR. RILEY FOR CRITICAL LAB VALUE Ca 5.6. ENDORSED TO AM SHIFT TO F/U.
[2018-11-05] MEDS: POTASSIUM CHLORIDE 20 MEQ TAB.PRT.SR PO SCH ×2 (09:05→16:18)
[2018-11-05] MEDS: FAMOTIDINE 20 MG TABLET PO SCH ×2 (09:06→16:18)
[2018-11-05] MEDS: CALCITRIOL 0.25 MCG CAPSULE PO SCH (09:06)
[2018-11-05] MEDS: PRAMIPEXOLE 1 MG TABLET PO SCH ×3 (09:06→16:18)
[2018-11-05] MEDS: TOPIRAMATE 25 MG TABLET PO SCH ×2 (09:06→17:28)
[2018-11-05] MEDS: SERTRALINE HCL 100 MG TABLET PO SCH (09:06)
[2018-11-05] MEDS: CALCIUM CARB/VITAMIN D 500MG-200UNITS TABLET PO SCH ×3 (09:06→16:18)
[2018-11-05] MEDS: CARBIDOPA/LEVODOPA 25-100MG TABLET PO SCH ×4 (09:06→20:21)
[2018-11-05] MEDS: METOPROLOL SUCCINATE XL 50 MG TAB.SR.24H PO SCH (09:07)
[2018-11-05] MEDS: MUPIROCIN 2% OINT 22 GM TUBE NS SCH ×2 (09:16→20:23)
--- NOTE | 2018-11-05 10:30 | NUR ---
Dr washington here to see patient. Aware of Santosh and K levels - replaced as ordered.
[2018-11-05 11:22] VITALS: BP 125/73
[2018-11-05] MEDS ORDERED: CALCIUM GLUCONATE IV 2 GM in IV DEXTROSE 5% 250 ML IV ONE (11:45)
[2018-11-05] MEDS: POTASSIUM CHLORIDE 10 MEQ, LIDOCAINE-MPF 1% 1 ML in IV DEXTROSE 5% 100 ML IV SCH ×4 (12:59→17:30)
[2018-11-05 16:02] VITALS: BP 124/66
--- NOTE | 2018-11-05 18:00 | NUR ---
No diarrhea with pt eating regular diet. Pt had soft stool. Pt is in no acute distress. Call light is within reach.
--- NOTE | 2018-11-05 19:30 | NUR ---
Received patient awake in bed, alert and oriented x 4, not in any form of distress. With an IV access on the left forearm, 22g to ongoing IV fluid, infusing well. Noted patient started regular diet, no episode of diarrhea this AM shift only soft stool per report of day shift nurse, will continue to monitor for recurrence of diarrhea. Noted with air mattress in place, will maintain for skin management. No complaints at the moment. Bed in low position, locked, side rails up x 2, call light within reach. Will continue to monitor.
[2018-11-05 20:01] VITALS: BP 133/77
[2018-11-05] MEDS: SIMVASTATIN 10 MG TABLET PO SCH (20:21)
[2018-11-05] MEDS: QUETIAPINE FUMARATE 100 MG TABLET PO SCH (20:21)
[2018-11-05] MEDS: ARIPIPRAZOLE 10 MG TABLET PO SCH (20:21)
[2018-11-06] MEDS: VANCOMYCIN FOR PO/GT/NG USE PO SCH ×4 (00:12→18:00)
[2018-11-06] MEDS: METRONIDAZOLE 500 MG/NS 100ML 500 MG in PREMIXED 1 EACH IV SCH ×2 (05:22→13:58)
--- NOTE | 2018-11-06 05:40 | NUR ---
Patient slept well throughout the nigh. No distress noted. No diarrhea noted. Patient made no complaints. Ensured safety and comfort. Attended all needs.
[2018-11-06 05:54] VITALS: BP 125/52
[2018-11-06] MEDS: LEVOTHYROXINE SODIUM 200 MCG TABLET PO SCH (06:03)
[2018-11-06 06:54] LABS: BASOPHILS # (AUTO) 0.1 K/uL (0.0-8.0); BASOPHILS % (AUTO) 0.9 % (0.0-2.0); EOSINOPHILS # (AUTO) 0.1 K/uL (0.0-0.7); EOSINOPHILS % (AUTO) 1.1 % (0.0-7.0); HEMATOCRIT 37.4 % (31.2-41.9); HEMOGLOBIN 12.3 g/dL (10.9-14.3); LYMPHOCYTES # (AUTO) 1.8 K/uL (20.0-40.0); LYMPHOCYTES % (AUTO) 29.6 % (20.5-51.5); MEAN CORPUSCULAR HEMOGLOBIN 28.5 uug (24.7-32.8); MEAN CORPUSCULAR HGB CONC 33 g/dL (32.3-35.6); MEAN CORPUSCULAR VOLUME 86.3 fL (75.5-95.3); MONOCYTES # (AUTO) 0.6 K/uL (2.0-10.0); MONOCYTES % (AUTO) 9.4 % (0.0-11.0); NEUTROPHILS # (AUTO) 3.5 K/uL (1.8-8.9); PLATELET COUNT (AUTO) 230 K/uL (179-408); RED BLOOD CELL COUNT(AUTO) 4.33 MIL/uL (3.63-4.92)
[2018-11-06 07:07] LABS: CREATININE 0.9 mg/dL (0.6-1.3); PHOSPHOROUS 4.7 mg/dL (2.5-4.9); POTASSIUM 3.1 mmol/L (3.5-5.1)
[2018-11-06 07:27] LABS: MAGNESIUM 1.1 mg/dL (1.8-2.4)
[2018-11-06] MEDS: SERTRALINE HCL 100 MG TABLET PO SCH (08:11)
[2018-11-06] MEDS: MUPIROCIN 2% OINT 22 GM TUBE NS SCH (08:11)
[2018-11-06] MEDS: CALCIUM CARB/VITAMIN D 500MG-200UNITS TABLET PO SCH ×3 (08:12→16:45)
[2018-11-06] MEDS: PRAMIPEXOLE 1 MG TABLET PO SCH ×3 (08:12→16:45)
[2018-11-06] MEDS: POTASSIUM CHLORIDE 20 MEQ TAB.PRT.SR PO SCH ×2 (08:12→16:45)
[2018-11-06] MEDS: METOPROLOL SUCCINATE XL 50 MG TAB.SR.24H PO SCH (08:12)
[2018-11-06] MEDS: FAMOTIDINE 20 MG TABLET PO SCH ×2 (08:12→16:45)
[2018-11-06] MEDS: TOPIRAMATE 25 MG TABLET PO SCH ×2 (08:13→16:46)
[2018-11-06] MEDS: CARBIDOPA/LEVODOPA 25-100MG TABLET PO SCH ×3 (08:13→16:45)
[2018-11-06] MEDS: CALCITRIOL 0.25 MCG CAPSULE PO SCH (08:14)
[2018-11-06] MEDS ORDERED: DEXTROSE 5% IV ONE (09:45)
[2018-11-06] MEDS ORDERED: MAGNESIUM SULFATE IV ONE (09:45)
[2018-11-06] MEDS ORDERED: POTASSIUM CHLORIDE 20 MEQ TAB.PRT.SR PO ONE (09:45)
[2018-11-06] MEDS: IV NS 1000 ML 1,000 ML IV PRN (10:03)
[2018-11-06] MEDS: MAGNESIUM SULFATE/D5W 100 ML IV SCH ×4 (10:03→13:23)
[2018-11-06] MEDS ORDERED: POTA20TA10 PO (11:20)
[2018-11-06] MEDS ORDERED: CALC0.254 PO (11:20)
[2018-11-06] MEDS ORDERED: VANC500V PO (11:20)
[2018-11-06 12:00] VITALS: BP 132/85
[2018-11-06 16:00] VITALS: BP 138/78
--- NOTE | 2018-11-06 18:45 | NUR ---
PT DC WITH EXIT CARE PACKET, ALL BELONGINGS, VALUABLES, AND MEDICATIONS. PT IS STABLE TO DC. PT IS GOING HOME WITH SON LUIS MANUEL. IV REMOVED, ID BAND REMOVED.SON'S WILL MAKE APPOINTMENT WITH PCP WITH IN TWO WEEKS OF DISCHARGE.
== END 2018-11-06 18:40 | disposition home or self-care (01) | DRG 371 ==
LOC: ER 18:16 → TELE3 22:38 → MEDSURG3 11-02 08:34
PROVIDERS: ADMIT Family Medicine; ATTEND Family Medicine
DX: A04.71 Enterocolitis due to Clostridium difficile, recurrent (principal); R53.2 Functional quadriplegia; N17.9 Acute kidney failure, unspecified; I48.91 Unspecified atrial fibrillation; Z79.01 Long term (current) use of anticoagulants; K21.9 Gastro-esophageal reflux disease without esophagitis; E03.9 Hypothyroidism, unspecified; F32.9 Major depressive disorder, single episode, unspecified; Z79.899 Other long term (current) drug therapy; G20 Parkinson's disease; Z86.73 Personal history of transient ischemic attack (TIA), and cerebral infarction without residual deficits; Z85.038 Personal history of other malignant neoplasm of large intestine; E66.9 Obesity, unspecified; Z68.31 Body mass index [BMI] 31.0-31.9, adult; Z71.3 Dietary counseling and surveillance; E83.42 Hypomagnesemia; E86.0 Dehydration; I10 Essential (primary) hypertension; Z87.891 Personal history of nicotine dependence; E87.6 Hypokalemia; E83.51 Hypocalcemia
CPT/HCPCS: 36415; 70030-TC; 71045; 82652; 83690; 83735; 83970; 84100; 85025; 85730; 93005; 97110; 97116; 97165; 97530; A4663; G0378; J0610; J2001; J3370; J3475; J3480; J3490; J7030; J7060

== ENCOUNTER 2019-01-17 13:09 | Inpatient (IN) | payer MEDICARE, MEDICAID ==
[~2019-01-17] VITALS: Ht 167.6 cm; Wt 79.4 kg
[~2019-01-17 13:09] MED LIST changes: +CALC0.254 PO; -METR500T PO; +POTA20TA10 PO; -VANC125C5 PO; +VANC500V PO
[2019-01-17] MEDS ORDERED: IV NORMAL SALINE 1000 ML BAG IV ONE (14:15)
[2019-01-17 14:23] LABS: *BILIRUBIN,URIN NEGATIVE (NEGATIVE); *BLOOD, URINE 1+ (NEGATIVE); *COLOR,URINE YELLOW (YELLOW); *KETONES,URINE NEGATIVE (NEGATIVE); *UROBILINOGEN,URINE 0.2 E.U./dl (NORMAL); LEUKOCYTE ESTERASE ,URINE 1+ (NEGATIVE); NITRITE, URINE NEGATIVE (NEGATIVE); UGLUCOSE NEGATIVE (NEGATIVE)
[2019-01-17 14:34] LABS: *CLARITY,URINE HAZY (CLEAR)
[2019-01-17 14:35] LABS: SQUAMOUS EPITHELIAL CELL,UR MODERATE /HPF (NONE SEEN)
[2019-01-17 14:36] LABS: MUCUS,URINE FEW /LPF (0-FEW)
[2019-01-17 14:52] LABS: BASOPHILS # (AUTO) 0.1 K/uL (0.0-8.0); BASOPHILS % (AUTO) 0.7 % (0.0-2.0); EOSINOPHILS # (AUTO) 0.1 K/uL (0.0-0.7); EOSINOPHILS % (AUTO) 1.3 % (0.0-7.0); HEMATOCRIT 38.4 % (31.2-41.9); HEMOGLOBIN 12.4 g/dL (10.9-14.3); LYMPHOCYTES # (AUTO) 2.4 K/uL (20.0-40.0); LYMPHOCYTES % (AUTO) 31.4 % (20.5-51.5); MEAN CORPUSCULAR HEMOGLOBIN 27.9 uug (24.7-32.8); MEAN CORPUSCULAR HGB CONC 32 g/dL (32.3-35.6); MEAN CORPUSCULAR VOLUME 86.2 fL (75.5-95.3); MONOCYTES # (AUTO) 0.5 K/uL (2.0-10.0); NEUTROPHILS # (AUTO) 4.6 K/uL (1.8-8.9); NEUTROPHILS % (AUTO) 59.6 % (38.5-71.5); PLATELET COUNT (AUTO) 233 K/uL (179-408); RED BLOOD CELL COUNT(AUTO) 4.45 MIL/uL (3.63-4.92); WHITE BLOOD COUNT (AUTO) 7.6 K/uL (3.8-11.8)
[2019-01-17 15:00] LABS: CREATININE 1.2 mg/dL (0.6-1.3); POTASSIUM 3.8 mmol/L (3.5-5.1)
[2019-01-17 15:06] LABS: BILIRUBIN,DIRECT 0.1 mg/dL (0.0-0.2); BILIRUBIN,TOTAL 0.5 mg/dL (0.2-1.0); TOTAL PROTEIN, SERUM 9.6 g/dL (6.4-8.2)
[2019-01-17] MEDS ORDERED: CEFTRIAXONE 1 G in IV DEXTROSE 5% 50 ML IV ONE (15:45)
[2019-01-17] MEDS ORDERED: CEFTRIAXONE 1 G VIAL ONE (15:47)
--- NOTE | 2019-01-17 16:18 | NUR ---
BERTRAND العراقي came & evaluated this patient, pending assigned med-surgical bed & nurse@this time.
[2019-01-17] MEDS ORDERED: ONDANSETRON HCL 4 MG TABLET PO PRN (16:30)
[2019-01-17] MEDS ORDERED: HOME MED MISCELLANEOUS XX SCH (16:30)
[2019-01-17] MEDS: CARBIDOPA/LEVODOPA 25-100MG TABLET PO SCH ×2 (18:27→20:48)
[2019-01-17] MEDS: CALCIUM CARB/VITAMIN D 500MG-200UNITS TABLET PO SCH (18:27)
[2019-01-17] MEDS: POTASSIUM CHLORIDE 20 MEQ TAB.PRT.SR PO SCH (18:27)
[2019-01-17] MEDS: FAMOTIDINE 20 MG TABLET PO SCH (18:28)
[2019-01-17] MEDS: IV NS 1000 ML 1,000 ML IV PRN (18:28)
[2019-01-17] MEDS: PRAMIPEXOLE 1 MG TABLET PO SCH (18:28)
--- NOTE | 2019-01-17 19:30 | NUR ---
Received patient in bed awake, A&Ox1. No complaints of pain or discomfort at this time. IV to left hand gauge #20 intact and patent, on IVF NS 75cc/hr. Bed kept locked and in low position w/ side rails up x 2, bed alarm on. Will continue to monitor
[2019-01-17 20:00] VITALS: BP 132/76
[2019-01-17] MEDS ORDERED: APIXABAN 5 MG TABLET PO ONE (20:00)
[2019-01-17] MEDS: TOPIRAMATE 25 MG TABLET PO SCH (20:48)
[2019-01-17] MEDS: ACIDOPHILUS/BULGARICUS CHEW TAB PO SCH (20:48)
[2019-01-17] MEDS: SIMVASTATIN 10 MG TABLET PO SCH (20:48)
[2019-01-17] MEDS: QUETIAPINE FUMARATE 100 MG TABLET PO SCH (20:48)
[2019-01-17] MEDS: ARIPIPRAZOLE 10 MG TABLET PO SCH (21:11)
[2019-01-18 05:00] VITALS: BP 142/66
[2019-01-18] MEDS: LEVOTHYROXINE SODIUM 200 MCG TABLET PO SCH (06:15)
--- NOTE | 2019-01-18 06:45 | NUR ---
Patient slept throughout the night. Patient was cooperative w/ nursing care. Not in distress at this time. IV site changed to left wrist gauge #22, patent w/ IVF infusing well. All needs were attended.
--- NOTE | 2019-01-18 07:15 | NUR ---
Received patient in Bed Asleep. No signs of Distress noted. NO SOB. No complain of Pain or Discomfort noted. Will continue to monitor.
[2019-01-18] MEDS: POTASSIUM CHLORIDE 20 MEQ TAB.PRT.SR PO SCH ×2 (08:49→17:07)
[2019-01-18] MEDS: FAMOTIDINE 20 MG TABLET PO SCH ×2 (08:49→17:08)
[2019-01-18] MEDS: PRAMIPEXOLE 1 MG TABLET PO SCH ×3 (08:49→17:07)
[2019-01-18] MEDS: CALCIUM CARB/VITAMIN D 500MG-200UNITS TABLET PO SCH ×3 (08:49→17:08)
[2019-01-18] MEDS: SERTRALINE HCL 100 MG TABLET PO SCH (08:49)
[2019-01-18] MEDS: ACIDOPHILUS/BULGARICUS CHEW TAB PO SCH ×2 (08:49→20:43)
[2019-01-18] MEDS: CARBIDOPA/LEVODOPA 25-100MG TABLET PO SCH ×4 (08:49→20:43)
[2019-01-18] MEDS: CALCITRIOL 0.25 MCG CAPSULE PO SCH (08:51)
[2019-01-18] MEDS: METOPROLOL SUCCINATE XL 50 MG TAB.SR.24H PO SCH (08:59)
[2019-01-18] MEDS ORDERED: APIXABAN 5 MG TABLET PO ONE (09:00)
[2019-01-18] MEDS: IV NS 1000 ML 1,000 ML IV PRN ×2 (09:30→22:44)
[2019-01-18] MEDS: TOPIRAMATE 25 MG TABLET PO SCH ×2 (09:51→20:43)
[2019-01-18 11:10] VITALS: BP 117/59
[2019-01-18 15:25] VITALS: BP 118/67
[2019-01-18] MEDS ORDERED: CEFTRIAXONE 1 G in IV DEXTROSE 5% 50 ML IV SCH (16:00)
[2019-01-18] MEDS: APIXABAN 5 MG PO SCH (17:09)
--- NOTE | 2019-01-18 18:32 | NUR ---
Patient in Bed, Awake and verbally responsive. No signs of Respiratory distress noted. No SOB. Denies Pain or Discomfort. Continue with Rocephin as ordered for UTI. All Due medications given as ordered. Will Endorse to Oncoming Nurse.
--- NOTE | 2019-01-18 19:15 | NUR ---
Received patient in bed awake, A&Ox1. Not in distress at this time. IV site on left wrist, intact and patent, IVF NS @75cc/hr infusing well. Bed kept locked and in low position w/ side rails up x 2 and bed alarm on. Call light in reach
[2019-01-18 19:45] VITALS: BP 127/59
[2019-01-18] MEDS: QUETIAPINE FUMARATE 100 MG TABLET PO SCH (20:43)
[2019-01-18] MEDS: SIMVASTATIN 10 MG TABLET PO SCH (20:43)
[2019-01-18] MEDS: ARIPIPRAZOLE 10 MG TABLET PO SCH (20:43)
[2019-01-19 04:12] VITALS: BP 126/59
[2019-01-19] MEDS: LEVOTHYROXINE SODIUM 200 MCG TABLET PO SCH (06:00)
--- NOTE | 2019-01-19 06:35 | NUR ---
Patient slept throughout the night. Patient was cooperative w/ nursing care. Not in distress at this time. No complaints of pain or discomfort. All needs were attended.
[2019-01-19 06:38] LABS: CREATININE 1.1 mg/dL (0.6-1.3); POTASSIUM 3.3 mmol/L (3.5-5.1)
--- NOTE | 2019-01-19 07:10 | NUR ---
Received patient in Bed, No signs of Respiratory distress noted. No SOB. No complain of Pain or Discomfort. IV site on Left Wrist intact, IVF infusing well. Keep the bed in lowest Position, Keep the call light within easy reach. Will continue to monitor.
[2019-01-19 07:39] LABS: BASOPHILS % (AUTO) 0.8 % (0.0-2.0); EOSINOPHILS # (AUTO) 0.1 K/uL (0.0-0.7); EOSINOPHILS % (AUTO) 1.9 % (0.0-7.0); HEMATOCRIT 36.8 % (31.2-41.9); HEMOGLOBIN 12.1 g/dL (10.9-14.3); LYMPHOCYTES # (AUTO) 1.5 K/uL (20.0-40.0); LYMPHOCYTES % (AUTO) 27.6 % (20.5-51.5); MEAN CORPUSCULAR HEMOGLOBIN 28.2 uug (24.7-32.8); MEAN CORPUSCULAR HGB CONC 33 g/dL (32.3-35.6); MEAN CORPUSCULAR VOLUME 85.6 fL (75.5-95.3); MONOCYTES # (AUTO) 0.4 K/uL (2.0-10.0); MONOCYTES % (AUTO) 8.1 % (0.0-11.0); NEUTROPHILS # (AUTO) 3.4 K/uL (1.8-8.9); NEUTROPHILS % (AUTO) 61.6 % (38.5-71.5); PLATELET COUNT (AUTO) 212 K/uL (179-408)
[2019-01-19 07:43] LABS: WHITE BLOOD COUNT (AUTO) 5.5 K/uL (3.8-11.8)
[2019-01-19] MEDS: CARBIDOPA/LEVODOPA 25-100MG TABLET PO SCH ×4 (08:27→20:44)
[2019-01-19] MEDS: SERTRALINE HCL 100 MG TABLET PO SCH (08:27)
[2019-01-19] MEDS: APIXABAN 5 MG PO SCH ×2 (08:27→16:26)
[2019-01-19] MEDS: POTASSIUM CHLORIDE 20 MEQ TAB.PRT.SR PO SCH ×2 (08:27→16:23)
[2019-01-19] MEDS: PRAMIPEXOLE 1 MG TABLET PO SCH ×3 (08:27→16:23)
[2019-01-19] MEDS: METOPROLOL SUCCINATE XL 50 MG TAB.SR.24H PO SCH (08:30)
[2019-01-19] MEDS: CALCIUM CARB/VITAMIN D 500MG-200UNITS TABLET PO SCH ×3 (08:30→16:23)
[2019-01-19] MEDS: FAMOTIDINE 20 MG TABLET PO SCH ×2 (08:30→16:23)
[2019-01-19] MEDS: ACIDOPHILUS/BULGARICUS CHEW TAB PO SCH ×2 (08:30→20:44)
[2019-01-19] MEDS: CALCITRIOL 0.25 MCG CAPSULE PO SCH (08:31)
[2019-01-19] MEDS: TOPIRAMATE 25 MG TABLET PO SCH ×2 (08:42→20:44)
[2019-01-19] MEDS ORDERED: POTASSIUM CHLORIDE 20 MEQ POWDER PACKET PO ONE (08:45)
[2019-01-19 11:00] VITALS: BP 126/73
[2019-01-19] MEDS: CEFTAZIDIME 1 G in IV DEXTROSE 5% 50 ML IV SCH (12:54)
--- NOTE | 2019-01-19 14:48 | NUR ---
patient received in bed, no sob, resp even nonlabored,no acuite distress noted.
[2019-01-19 17:30] VITALS: BP 133/70
[2019-01-19 19:41] VITALS: BP 141/79
--- NOTE | 2019-01-19 20:08 | NUR ---
PATIENT RECEIVED IN BED, AWAKE AND ALERT, RESTING COMFORTABLY. PATIENT IS ORIENTED X2 AND HAS NO COMPLAINTS OF PAIN AT THIS TIME. ALL SAFETY AND FALL PRECAUTION MEASURES ARE IN PLACE. PERSONAL ITEMS AND CALL LIGHT ARE WITHIN REACH AT ALL TIMES. WILL CONTINUE TO MONITOR.
[2019-01-19] MEDS: SIMVASTATIN 10 MG TABLET PO SCH (20:44)
[2019-01-19] MEDS: ARIPIPRAZOLE 10 MG TABLET PO SCH (20:44)
[2019-01-19] MEDS: QUETIAPINE FUMARATE 100 MG TABLET PO SCH (20:45)
[2019-01-20] MEDS: CEFTAZIDIME 1 G in IV DEXTROSE 5% 50 ML IV SCH ×2 (00:07→12:54)
[2019-01-20 04:27] VITALS: BP 130/83
--- NOTE | 2019-01-20 05:15 | NUR ---
Patient rested comfortably throughout night without interruption. Patient had no s/s of acute distress or discomfort noted or observed during this shift. VS were WNL and patient has been stable. Prescribed IV ATB infused as ordered and tolerated well without any acute adverse effects noted or observed. Safety and fall precaution measures remain in place. Call light and personal remain within reach at all times.
[2019-01-20] MEDS: LEVOTHYROXINE SODIUM 200 MCG TABLET PO SCH (06:06)
--- NOTE | 2019-01-20 08:50 | NUR ---
Patient is sleeping. Safety and fall precaution measures remain in place. Call light and personal within reach.
[2019-01-20] MEDS: PRAMIPEXOLE 1 MG TABLET PO SCH ×3 (09:06→16:11)
[2019-01-20] MEDS: SERTRALINE HCL 100 MG TABLET PO SCH (09:06)
[2019-01-20] MEDS: TOPIRAMATE 25 MG TABLET PO SCH ×2 (09:06→20:18)
[2019-01-20] MEDS: CARBIDOPA/LEVODOPA 25-100MG TABLET PO SCH ×4 (09:06→20:19)
[2019-01-20] MEDS: CALCIUM CARB/VITAMIN D 500MG-200UNITS TABLET PO SCH ×3 (09:06→16:11)
[2019-01-20] MEDS: ACIDOPHILUS/BULGARICUS CHEW TAB PO SCH ×2 (09:06→20:18)
[2019-01-20] MEDS: METOPROLOL SUCCINATE XL 50 MG TAB.SR.24H PO SCH (09:07)
[2019-01-20] MEDS: FAMOTIDINE 20 MG TABLET PO SCH ×2 (09:07→16:11)
[2019-01-20] MEDS: POTASSIUM CHLORIDE 20 MEQ TAB.PRT.SR PO SCH ×2 (09:07→16:11)
[2019-01-20] MEDS: CALCITRIOL 0.25 MCG CAPSULE PO SCH (09:09)
[2019-01-20] MEDS: APIXABAN 5 MG PO SCH ×2 (09:09→16:10)
[2019-01-20 11:18] VITALS: BP 130/83
[2019-01-20 15:13] VITALS: BP 120/62
[2019-01-20] MEDS ORDERED: MAGNESIUM CITRATE 296 ML BOTTLE PO ONE (18:45)
--- NOTE | 2019-01-20 19:19 | NUR ---
Patient in bed, Awake and verbally responsive. No signs of Respiratory distress noted. No complain of Pain or Discomfort. All needs attended and met. Kept the call light within easy reach. kept the bed in Lowest position. Will Endorse to Oncoming Nurse.
--- NOTE | 2019-01-20 20:00 | NUR ---
Patient received resting comfortably in bed. Patient is sleeping but easily to arouse. Patient is oriented x2 and has no complaints of pain or discomfort at this time. VS are wnl and patient is stable. All safety and fall precaution measures are in place. Call light and personal items are within reach at all times. Will continue to monitor.
[2019-01-20] MEDS: ARIPIPRAZOLE 10 MG TABLET PO SCH (20:18)
[2019-01-20] MEDS: DOCUSATE SODIUM 100 MG CAPSULE PO SCH (20:19)
[2019-01-20] MEDS: SIMVASTATIN 10 MG TABLET PO SCH (20:19)
[2019-01-20] MEDS: QUETIAPINE FUMARATE 100 MG TABLET PO SCH (20:19)
[2019-01-20 20:32] VITALS: BP 111/70
[2019-01-21] MEDS: CEFTAZIDIME 1 G in IV DEXTROSE 5% 50 ML IV SCH ×2 (00:29→13:15)
[2019-01-21 04:47] VITALS: BP 130/65
--- NOTE | 2019-01-21 04:58 | NUR ---
Patient slept throughout night with no complaints of pain or discomfort. VS remained WNL and patient is stable. IV ATB provided as ordered and tolerated well, with no adverse side effects noted or observed. Safety and fall precaution measures remain in place. Personal items and call light remain within reach at all times.
[2019-01-21] MEDS: LEVOTHYROXINE SODIUM 200 MCG TABLET PO SCH (06:23)
[2019-01-21 06:53] LABS: BASOPHILS % (AUTO) 0.5 % (0.0-2.0); EOSINOPHILS # (AUTO) 0.1 K/uL (0.0-0.7); EOSINOPHILS % (AUTO) 1.5 % (0.0-7.0); HEMATOCRIT 41.2 % (31.2-41.9); HEMOGLOBIN 13.9 g/dL (10.9-14.3); LYMPHOCYTES # (AUTO) 2.3 K/uL (20.0-40.0); LYMPHOCYTES % (AUTO) 37.4 % (20.5-51.5); MEAN CORPUSCULAR HEMOGLOBIN 28.7 uug (24.7-32.8); MEAN CORPUSCULAR HGB CONC 34 g/dL (32.3-35.6); MEAN CORPUSCULAR VOLUME 85.3 fL (75.5-95.3); MONOCYTES # (AUTO) 0.6 K/uL (2.0-10.0); MONOCYTES % (AUTO) 8.8 % (0.0-11.0); NEUTROPHILS # (AUTO) 3.2 K/uL (1.8-8.9); NEUTROPHILS % (AUTO) 51.8 % (38.5-71.5); PLATELET COUNT (AUTO) 227 K/uL (179-408); RED BLOOD CELL COUNT(AUTO) 4.83 MIL/uL (3.63-4.92); WHITE BLOOD COUNT (AUTO) 6.2 K/uL (3.8-11.8)
[2019-01-21 07:16] LABS: ALKALINE PHOSPHATASE 95 U/L (50-136); ASPARTATE AMINOTRANSFERASE 15 U/L (15-37); BILIRUBIN,DIRECT 0.1 mg/dL (0.0-0.2); BILIRUBIN,TOTAL 0.5 mg/dL (0.2-1.0); CARBON DIOXIDE 25 mmol/L (21-32); CHLORIDE 104 mmol/L (98-107); CREATININE 1.1 mg/dL (0.6-1.3); GLUCOSE 98 mg/dL (74-106); POTASSIUM 3.5 mmol/L (3.5-5.1); UREA NITROGEN, BLOOD 20 mg/dL (7-18)
[2019-01-21 07:32] LABS: ALANINE AMINOTRANSFERASE < 6 U/L (14-59)
--- NOTE | 2019-01-21 07:40 | NUR ---
Patient calm and comfortable with no signs of distress; call light and safety devices with in reach. Will continue to monitor.
[2019-01-21] MEDS: TOPIRAMATE 25 MG TABLET PO SCH (08:50)
[2019-01-21] MEDS: DOCUSATE SODIUM 100 MG CAPSULE PO SCH (08:50)
[2019-01-21] MEDS: PRAMIPEXOLE 1 MG TABLET PO SCH ×3 (08:51→17:21)
[2019-01-21] MEDS: ACIDOPHILUS/BULGARICUS CHEW TAB PO SCH (08:51)
[2019-01-21] MEDS: CALCIUM CARB/VITAMIN D 500MG-200UNITS TABLET PO SCH ×3 (08:52→17:22)
[2019-01-21] MEDS: FAMOTIDINE 20 MG TABLET PO SCH ×2 (08:53→17:21)
[2019-01-21] MEDS: SERTRALINE HCL 100 MG TABLET PO SCH (08:54)
[2019-01-21] MEDS: CARBIDOPA/LEVODOPA 25-100MG TABLET PO SCH ×3 (08:54→17:18)
[2019-01-21] MEDS: POTASSIUM CHLORIDE 20 MEQ TAB.PRT.SR PO SCH ×2 (08:54→17:20)
[2019-01-21] MEDS: METOPROLOL SUCCINATE XL 50 MG TAB.SR.24H PO SCH (08:55)
[2019-01-21] MEDS: CALCITRIOL 0.25 MCG CAPSULE PO SCH (08:56)
[2019-01-21] MEDS: APIXABAN 5 MG PO SCH ×2 (08:56→17:20)
[2019-01-21 11:24] VITALS: BP 104/59
[2019-01-21] MEDS ORDERED: CEFT1PIG6 IV (12:34)
[2019-01-21 15:08] VITALS: BP 102/63
--- NOTE | 2019-01-21 18:50 | NUR ---
Patient discharged to ARU with no signs of distress; patient belongings and valuables sent with patient. SUSHMA Bello given report. Patient jefferson continue antibiotic an PT/OT therapy in ARU per MD orders.
== END 2019-01-21 18:40 | DRG 689 ==
LOC: ER 13:09 → MEDSURG3 16:51
PROVIDERS: ADMIT Nurse Practitioner Acute Care; ATTEND Nurse Practitioner Acute Care
DX: N39.0 Urinary tract infection, site not specified (principal); G93.41 Metabolic encephalopathy; N17.0 Acute kidney failure with tubular necrosis; I69.354 Hemiplegia and hemiparesis following cerebral infarction affecting left non-dominant side; J98.11 Atelectasis; E86.0 Dehydration; R40.2362 Coma scale, best motor response, obeys commands, at arrival to emergency department; R40.2142 Coma scale, eyes open, spontaneous, at arrival to emergency department; R40.2252 Coma scale, best verbal response, oriented, at arrival to emergency department; I48.2 Chronic atrial fibrillation; E87.6 Hypokalemia; E78.5 Hyperlipidemia, unspecified; G20 Parkinson's disease; E66.9 Obesity, unspecified; Z68.28 Body mass index [BMI] 28.0-28.9, adult; E03.9 Hypothyroidism, unspecified; Z87.891 Personal history of nicotine dependence; R91.1 Solitary pulmonary nodule; Z74.09 Other reduced mobility; I10 Essential (primary) hypertension; F32.9 Major depressive disorder, single episode, unspecified; I70.0 Atherosclerosis of aorta; Z79.01 Long term (current) use of anticoagulants; Z79.899 Other long term (current) drug therapy; N20.0 Calculus of kidney; B96.5 Pseudomonas (aeruginosa) (mallei) (pseudomallei) as the cause of diseases classified elsewhere
CPT/HCPCS: 36415; 70030-TC; 71045; 83690; 84443; 85025; 85730; 87077; 87086; 93005; 97110; 97112; 97116; 97530; A4663; G0378; J0696; J0713; J3490; J7030; J7050; J7060

== ENCOUNTER 2019-01-21 19:00 | Inpatient (IN) | payer MEDICARE, MEDICAID ==
[~2019-01-21] VITALS: Ht 167.6 cm; Wt 79.4 kg
[~2019-01-21 19:00] MED LIST changes: -CALC0.5C11 PO; +CEFT1PIG6 IV; -POTA10TA15 PO; -VANC500V PO
[2019-01-21 19:34] VITALS: BP 101/47
[2019-01-21] MEDS ORDERED: ONDANSETRON HCL 4 MG TABLET PO PRN (21:45)
[2019-01-22 04:30] VITALS: BP 144/69
[2019-01-22 08:34] VITALS: BP 139/73
[2019-01-22] MEDS ORDERED: APIXABAN 5 MG TABLET PO SCH (09:00)
[2019-01-22] MEDS ORDERED: CALCITRIOL 0.25 MCG CAPSULE PO SCH (09:00)
[2019-01-22] MEDS ORDERED: APIXABAN 5 MG PO SCH (09:00)
[2019-01-22] MEDS: APIXABAN 5 MG TABLET PO SCH ×2 (09:01→17:38)
[2019-01-22] MEDS: FAMOTIDINE 20 MG TABLET PO SCH (09:02)
[2019-01-22] MEDS: CARBIDOPA/LEVODOPA 25-100MG TABLET PO SCH ×4 (09:03→22:04)
[2019-01-22] MEDS: POTASSIUM CHLORIDE 20 MEQ TAB.PRT.SR PO SCH ×2 (09:03→17:36)
[2019-01-22] MEDS: CEFTAZIDIME 1 G in IV DEXTROSE 5% 50 ML IV SCH ×2 (09:04→22:06)
[2019-01-22] MEDS: CALCIUM CARB/VITAMIN D 500MG-200UNITS TABLET PO SCH ×3 (09:04→17:36)
[2019-01-22] MEDS: LEVOTHYROXINE SODIUM 200 MCG TABLET PO SCH (09:05)
[2019-01-22] MEDS: METOPROLOL SUCCINATE XL 50 MG TAB.SR.24H PO SCH (09:33)
[2019-01-22] MEDS: Z GUARD REMEDY PASTE 57 GM TUBE TOP SCH ×2 (09:34→22:46)
[2019-01-22] MEDS: PRAMIPEXOLE 1 MG TABLET PO SCH ×3 (09:40→17:36)
[2019-01-22] MEDS: SERTRALINE HCL 100 MG TABLET PO SCH (09:40)
[2019-01-22] MEDS: TOPIRAMATE 25 MG TABLET PO SCH ×2 (09:40→22:04)
[2019-01-22 16:21] VITALS: BP 133/72
[2019-01-22 20:18] VITALS: BP 131/67
[2019-01-22] MEDS: ARIPIPRAZOLE 10 MG TABLET PO SCH (22:04)
[2019-01-22] MEDS: SIMVASTATIN 10 MG TABLET PO SCH (22:04)
[2019-01-22] MEDS: QUETIAPINE FUMARATE 100 MG TABLET PO SCH (22:05)
[2019-01-23] MEDS: PRAMIPEXOLE 1 MG TABLET PO SCH ×5 (00:21→23:54)
[2019-01-23 04:32] VITALS: BP 101/56
[2019-01-23] MEDS: LEVOTHYROXINE SODIUM 200 MCG TABLET PO SCH (06:29)
[2019-01-23 07:41] VITALS: BP 134/56
[2019-01-23] MEDS: APIXABAN 5 MG TABLET PO SCH ×2 (09:00→17:00)
[2019-01-23] MEDS: POTASSIUM CHLORIDE 20 MEQ POWDER PACKET PO SCH ×2 (09:18→17:51)
[2019-01-23] MEDS: FAMOTIDINE 20 MG TABLET PO SCH (09:18)
[2019-01-23] MEDS: CALCIUM CARB/VITAMIN D 500MG-200UNITS TABLET PO SCH ×3 (09:19→17:52)
[2019-01-23] MEDS: TOPIRAMATE 25 MG TABLET PO SCH ×2 (09:20→20:57)
[2019-01-23] MEDS: Z GUARD REMEDY PASTE 57 GM TUBE TOP SCH ×2 (09:20→20:57)
[2019-01-23] MEDS: SERTRALINE HCL 100 MG TABLET PO SCH (09:20)
[2019-01-23] MEDS: METOPROLOL SUCCINATE XL 50 MG TAB.SR.24H PO SCH (09:22)
[2019-01-23] MEDS: CEFTAZIDIME 1 G in IV DEXTROSE 5% 50 ML IV SCH ×2 (09:56→20:58)
[2019-01-23] MEDS: CARBIDOPA/LEVODOPA 25-100MG TABLET PO SCH ×4 (10:14→20:57)
[2019-01-23 15:17] LABS: BASOPHILS # (AUTO) 0.1 K/uL (0.0-8.0); BASOPHILS % (AUTO) 1.1 % (0.0-2.0); EOSINOPHILS # (AUTO) 0.1 K/uL (0.0-0.7); EOSINOPHILS % (AUTO) 1.5 % (0.0-7.0); HEMATOCRIT 40.1 % (31.2-41.9); LYMPHOCYTES # (AUTO) 2.4 K/uL (20.0-40.0); LYMPHOCYTES % (AUTO) 34.3 % (20.5-51.5); MEAN CORPUSCULAR HEMOGLOBIN 28.1 uug (24.7-32.8); MEAN CORPUSCULAR HGB CONC 33 g/dL (32.3-35.6); MEAN CORPUSCULAR VOLUME 86.5 fL (75.5-95.3); MONOCYTES # (AUTO) 0.6 K/uL (2.0-10.0); MONOCYTES % (AUTO) 8.5 % (0.0-11.0); NEUTROPHILS # (AUTO) 3.8 K/uL (1.8-8.9); NEUTROPHILS % (AUTO) 54.6 % (38.5-71.5); PLATELET COUNT (AUTO) 233 K/uL (179-408); RED BLOOD CELL COUNT(AUTO) 4.63 MIL/uL (3.63-4.92); WHITE BLOOD COUNT (AUTO) 6.9 K/uL (3.8-11.8)
[2019-01-23 15:33] LABS: CREATININE 1.4 mg/dL (0.6-1.3); MAGNESIUM 2.2 mg/dL (1.8-2.4); PHOSPHOROUS 4.1 mg/dL (2.5-4.9)
[2019-01-23 15:56] VITALS: BP 117/54
[2019-01-23 20:52] VITALS: BP 117/53
[2019-01-23] MEDS: SIMVASTATIN 10 MG TABLET PO SCH (20:57)
[2019-01-23] MEDS: QUETIAPINE FUMARATE 100 MG TABLET PO SCH (20:57)
[2019-01-23] MEDS: ARIPIPRAZOLE 10 MG TABLET PO SCH (20:57)
[2019-01-24 05:03] VITALS: BP 99/58
[2019-01-24] MEDS: PRAMIPEXOLE 1 MG TABLET PO SCH ×4 (06:08→23:14)
[2019-01-24] MEDS: LEVOTHYROXINE SODIUM 200 MCG TABLET PO SCH (06:08)
[2019-01-24 07:59] VITALS: BP 105/62
[2019-01-24] MEDS: POTASSIUM CHLORIDE 20 MEQ POWDER PACKET PO SCH ×2 (08:46→17:07)
[2019-01-24] MEDS: FAMOTIDINE 20 MG TABLET PO SCH (08:46)
[2019-01-24] MEDS: METOPROLOL SUCCINATE XL 50 MG TAB.SR.24H PO SCH (08:46)
[2019-01-24] MEDS: TOPIRAMATE 25 MG TABLET PO SCH ×2 (08:48→21:42)
[2019-01-24] MEDS: CALCIUM CARB/VITAMIN D 500MG-200UNITS TABLET PO SCH ×3 (08:49→17:07)
[2019-01-24] MEDS: SERTRALINE HCL 100 MG TABLET PO SCH (08:49)
[2019-01-24] MEDS: CEFTAZIDIME 1 G in IV DEXTROSE 5% 50 ML IV SCH ×2 (08:53→21:46)
[2019-01-24] MEDS: APIXABAN 5 MG TABLET PO SCH (08:56)
[2019-01-24] MEDS: Z GUARD REMEDY PASTE 57 GM TUBE TOP SCH ×2 (09:23→21:46)
[2019-01-24] MEDS: CARBIDOPA/LEVODOPA 25-100MG TABLET PO SCH ×4 (09:23→21:42)
[2019-01-24 11:29] LABS: *BILIRUBIN,URIN NEGATIVE (NEGATIVE); *BLOOD, URINE NEGATIVE (NEGATIVE); *CLARITY,URINE CLEAR (CLEAR); *COLOR,URINE YELLOW (YELLOW); *KETONES,URINE NEGATIVE (NEGATIVE); *UROBILINOGEN,URINE 0.2 E.U./dl (NORMAL); LEUKOCYTE ESTERASE ,URINE TRACE (NEGATIVE); NITRITE, URINE NEGATIVE (NEGATIVE); UGLUCOSE NEGATIVE (NEGATIVE)
[2019-01-24 11:41] LABS: BACTERIA,URINE FEW /HPF (NONE SEEN); SQUAMOUS EPITHELIAL CELL,UR MANY /HPF (NONE SEEN)
[2019-01-24 11:42] LABS: URINE AMORPHOUS URATE FEW /HPF
[2019-01-24 16:22] VITALS: BP 96/45
[2019-01-24] MEDS: APIXABAN 5 MG PO SCH (17:09)
[2019-01-24] MEDS: CLOTRIMAZOLE 1% CREAM 30 GM TUBE TOP SCH (17:44)
[2019-01-24 21:19] VITALS: BP 114/58
[2019-01-24] MEDS: QUETIAPINE FUMARATE 100 MG TABLET PO SCH (21:42)
[2019-01-24] MEDS: SIMVASTATIN 10 MG TABLET PO SCH (21:42)
[2019-01-24] MEDS: ARIPIPRAZOLE 10 MG TABLET PO SCH (21:42)
[2019-01-25 05:11] VITALS: BP 126/60
[2019-01-25] MEDS: PRAMIPEXOLE 1 MG TABLET PO SCH ×4 (06:17→23:03)
[2019-01-25] MEDS: LEVOTHYROXINE SODIUM 200 MCG TABLET PO SCH (06:17)
[2019-01-25 08:39] VITALS: BP 112/55
[2019-01-25] MEDS: POTASSIUM CHLORIDE 20 MEQ POWDER PACKET PO SCH ×2 (09:17→16:50)
[2019-01-25] MEDS: CALCIUM CARB/VITAMIN D 500MG-200UNITS TABLET PO SCH ×3 (09:17→16:50)
[2019-01-25] MEDS: SERTRALINE HCL 100 MG TABLET PO SCH (09:18)
[2019-01-25] MEDS: TOPIRAMATE 25 MG TABLET PO SCH ×2 (09:18→21:04)
[2019-01-25] MEDS: FAMOTIDINE 20 MG TABLET PO SCH (09:18)
[2019-01-25] MEDS: METOPROLOL SUCCINATE XL 50 MG TAB.SR.24H PO SCH (09:19)
[2019-01-25] MEDS: CEFTAZIDIME 1 G in IV DEXTROSE 5% 50 ML IV SCH ×2 (09:20→21:19)
[2019-01-25] MEDS: CLOTRIMAZOLE 1% CREAM 30 GM TUBE TOP SCH ×2 (09:21→16:51)
[2019-01-25] MEDS: Z GUARD REMEDY PASTE 57 GM TUBE TOP SCH ×2 (09:22→21:10)
[2019-01-25] MEDS: CARBIDOPA/LEVODOPA 25-100MG TABLET PO SCH ×4 (09:24→21:03)
[2019-01-25] MEDS: APIXABAN 5 MG PO SCH ×2 (09:25→16:50)
[2019-01-25 16:15] VITALS: BP 102/58
[2019-01-25] MEDS: QUETIAPINE FUMARATE 100 MG TABLET PO SCH (21:03)
[2019-01-25] MEDS: SIMVASTATIN 10 MG TABLET PO SCH (21:03)
[2019-01-25] MEDS: ARIPIPRAZOLE 10 MG TABLET PO SCH (21:04)
[2019-01-25 21:42] VITALS: BP 101/59
[2019-01-26 05:20] VITALS: BP 100/50
[2019-01-26] MEDS: LEVOTHYROXINE SODIUM 200 MCG TABLET PO SCH (06:14)
[2019-01-26] MEDS: PRAMIPEXOLE 1 MG TABLET PO SCH ×3 (06:15→17:50)
[2019-01-26 07:59] VITALS: BP 113/49
[2019-01-26] MEDS: POTASSIUM CHLORIDE 20 MEQ POWDER PACKET PO SCH ×2 (10:21→17:44)
[2019-01-26] MEDS: METOPROLOL SUCCINATE XL 50 MG TAB.SR.24H PO SCH (10:22)
[2019-01-26] MEDS: FAMOTIDINE 20 MG TABLET PO SCH (10:22)
[2019-01-26] MEDS: CALCIUM CARB/VITAMIN D 500MG-200UNITS TABLET PO SCH ×3 (10:23→17:50)
[2019-01-26] MEDS: CLOTRIMAZOLE 1% CREAM 30 GM TUBE TOP SCH ×2 (10:24→17:48)
[2019-01-26] MEDS: SERTRALINE HCL 100 MG TABLET PO SCH (10:24)
[2019-01-26] MEDS: TOPIRAMATE 25 MG TABLET PO SCH ×2 (10:24→20:50)
[2019-01-26] MEDS: Z GUARD REMEDY PASTE 57 GM TUBE TOP SCH ×2 (10:25→20:50)
[2019-01-26] MEDS: APIXABAN 5 MG PO SCH ×2 (10:26→17:59)
[2019-01-26] MEDS: CARBIDOPA/LEVODOPA 25-100MG TABLET PO SCH ×2 (13:52→17:51)
[2019-01-26 15:57] LABS: BASOPHILS # (AUTO) 0.1 K/uL (0.0-8.0); BASOPHILS % (AUTO) 1.3 % (0.0-2.0); EOSINOPHILS # (AUTO) 0.2 K/uL (0.0-0.7); EOSINOPHILS % (AUTO) 2.3 % (0.0-7.0); HEMATOCRIT 38.7 % (31.2-41.9); HEMOGLOBIN 13.1 g/dL (10.9-14.3); LYMPHOCYTES # (AUTO) 2.5 K/uL (20.0-40.0); LYMPHOCYTES % (AUTO) 31.9 % (20.5-51.5); MEAN CORPUSCULAR HEMOGLOBIN 28.6 uug (24.7-32.8); MEAN CORPUSCULAR HGB CONC 34 g/dL (32.3-35.6); MEAN CORPUSCULAR VOLUME 84.5 fL (75.5-95.3); MONOCYTES # (AUTO) 0.6 K/uL (2.0-10.0); MONOCYTES % (AUTO) 7.8 % (0.0-11.0); NEUTROPHILS # (AUTO) 4.4 K/uL (1.8-8.9); NEUTROPHILS % (AUTO) 56.7 % (38.5-71.5); PLATELET COUNT (AUTO) 240 K/uL (179-408); RED BLOOD CELL COUNT(AUTO) 4.58 MIL/uL (3.63-4.92); WHITE BLOOD COUNT (AUTO) 7.8 K/uL (3.8-11.8)
[2019-01-26 16:02] VITALS: BP 118/50
[2019-01-26 16:02] LABS: BILIRUBIN,TOTAL 0.3 mg/dL (0.2-1.0); POTASSIUM 4.3 mmol/L (3.5-5.1); TOTAL PROTEIN, SERUM 9.1 g/dL (6.4-8.2)
[2019-01-26 20:44] VITALS: BP 101/59
[2019-01-26] MEDS: ARIPIPRAZOLE 10 MG TABLET PO SCH (20:50)
[2019-01-26] MEDS: SIMVASTATIN 10 MG TABLET PO SCH (20:50)
[2019-01-26] MEDS: QUETIAPINE FUMARATE 100 MG TABLET PO SCH (20:58)
[2019-01-27] MEDS: PRAMIPEXOLE 1 MG TABLET PO SCH ×6 (00:34→23:35)
[2019-01-27] MEDS: CARBIDOPA/LEVODOPA 25-100MG TABLET PO SCH ×6 (00:34→23:36)
[2019-01-27] MEDS: LEVOTHYROXINE SODIUM 200 MCG TABLET PO SCH (06:14)
[2019-01-27 06:53] VITALS: BP 95/54
[2019-01-27 08:00] VITALS: BP 111/56
[2019-01-27] MEDS: METOPROLOL SUCCINATE XL 50 MG TAB.SR.24H PO SCH (09:00)
[2019-01-27] MEDS: POTASSIUM CHLORIDE 20 MEQ POWDER PACKET PO SCH ×2 (09:19→17:31)
[2019-01-27] MEDS: FAMOTIDINE 20 MG TABLET PO SCH (09:19)
[2019-01-27] MEDS: CALCIUM CARB/VITAMIN D 500MG-200UNITS TABLET PO SCH ×3 (09:20→17:31)
[2019-01-27] MEDS: TOPIRAMATE 25 MG TABLET PO SCH ×2 (09:22→21:40)
[2019-01-27] MEDS: CLOTRIMAZOLE 1% CREAM 30 GM TUBE TOP SCH ×2 (09:23→17:39)
[2019-01-27] MEDS: APIXABAN 5 MG PO SCH ×2 (09:25→17:32)
[2019-01-27] MEDS: SERTRALINE HCL 100 MG TABLET PO SCH (09:28)
[2019-01-27 09:55] VITALS: BP 91/49
[2019-01-27] MEDS: Z GUARD REMEDY PASTE 57 GM TUBE TOP SCH ×2 (09:56→21:41)
[2019-01-27 16:28] VITALS: BP 103/63
[2019-01-27] MEDS: QUETIAPINE FUMARATE 100 MG TABLET PO SCH (21:00)
[2019-01-27 21:33] VITALS: BP 93/46
[2019-01-27] MEDS: SIMVASTATIN 10 MG TABLET PO SCH (21:40)
[2019-01-27] MEDS: ARIPIPRAZOLE 10 MG TABLET PO SCH (21:40)
[2019-01-28 00:40] LABS: *BILIRUBIN,URIN NEGATIVE (NEGATIVE); *BLOOD, URINE NEGATIVE (NEGATIVE); *CLARITY,URINE CLEAR (CLEAR); *COLOR,URINE YELLOW (YELLOW); *KETONES,URINE NEGATIVE (NEGATIVE); *UROBILINOGEN,URINE 0.2 E.U./dl (NORMAL); LEUKOCYTE ESTERASE ,URINE TRACE (NEGATIVE); NITRITE, URINE NEGATIVE (NEGATIVE); UGLUCOSE NEGATIVE (NEGATIVE)
[2019-01-28 00:49] LABS: RBC,URINE 0-3 /HPF (0-3)
[2019-01-28 00:50] LABS: BACTERIA,URINE MODERATE /HPF (NONE SEEN); SQUAMOUS EPITHELIAL CELL,UR FEW /HPF (NONE SEEN)
[2019-01-28 06:03] VITALS: BP 97/50
[2019-01-28] MEDS: CARBIDOPA/LEVODOPA 25-100MG TABLET PO SCH ×3 (06:45→17:56)
[2019-01-28] MEDS: PRAMIPEXOLE 1 MG TABLET PO SCH ×3 (06:45→17:53)
[2019-01-28] MEDS: LEVOTHYROXINE SODIUM 200 MCG TABLET PO SCH (06:45)
[2019-01-28 08:00] VITALS: BP 101/42
[2019-01-28] MEDS: METOPROLOL SUCCINATE XL 50 MG TAB.SR.24H PO SCH (09:00)
[2019-01-28 09:43] VITALS: BP 97/43
[2019-01-28] MEDS: TOPIRAMATE 25 MG TABLET PO SCH ×2 (09:46→20:38)
[2019-01-28] MEDS: SERTRALINE HCL 100 MG TABLET PO SCH (09:46)
[2019-01-28] MEDS: POTASSIUM CHLORIDE 20 MEQ POWDER PACKET PO SCH ×2 (09:46→17:54)
[2019-01-28] MEDS: FAMOTIDINE 20 MG TABLET PO SCH (09:46)
[2019-01-28] MEDS: CALCIUM CARB/VITAMIN D 500MG-200UNITS TABLET PO SCH ×3 (09:46→17:53)
[2019-01-28] MEDS: APIXABAN 5 MG PO SCH ×2 (09:48→17:52)
[2019-01-28] MEDS: Z GUARD REMEDY PASTE 57 GM TUBE TOP SCH ×2 (11:00→20:40)
[2019-01-28] MEDS: CLOTRIMAZOLE 1% CREAM 30 GM TUBE TOP SCH ×2 (11:00→17:55)
[2019-01-28 16:40] VITALS: BP 117/57
[2019-01-28] MEDS: ARIPIPRAZOLE 10 MG TABLET PO SCH (20:37)
[2019-01-28] MEDS: QUETIAPINE FUMARATE 100 MG TABLET PO SCH (20:37)
[2019-01-28] MEDS: SIMVASTATIN 10 MG TABLET PO SCH (20:38)
[2019-01-28 21:06] VITALS: BP 95/47
[2019-01-29] MEDS ORDERED: CARBIDOPA/LEVODOPA 25-100MG TABLET ONE ×3 (01:06→06:21)
[2019-01-29] MEDS ORDERED: CARBIDOPA/LEVODOPA 10-100MG TABLET ONE (01:08)
[2019-01-29] MEDS: PRAMIPEXOLE 1 MG TABLET PO SCH ×4 (01:12→21:44)
[2019-01-29] MEDS: CARBIDOPA/LEVODOPA 25-100MG TABLET PO SCH ×5 (01:13→23:15)
[2019-01-29 04:32] VITALS: BP 100/50
[2019-01-29] MEDS: LEVOTHYROXINE SODIUM 200 MCG TABLET PO SCH (06:41)
[2019-01-29 08:00] VITALS: BP_SYST 105; BP_SYST 95; BP_DIAS 48; BP_DIAS 57
[2019-01-29] MEDS: METOPROLOL SUCCINATE XL 50 MG TAB.SR.24H PO SCH (09:00)
[2019-01-29] MEDS: POTASSIUM CHLORIDE 20 MEQ POWDER PACKET PO SCH ×2 (09:25→17:37)
[2019-01-29] MEDS: FAMOTIDINE 20 MG TABLET PO SCH (09:25)
[2019-01-29] MEDS: CALCIUM CARB/VITAMIN D 500MG-200UNITS TABLET PO SCH ×3 (09:26→17:38)
[2019-01-29] MEDS: TOPIRAMATE 25 MG TABLET PO SCH ×2 (09:27→20:49)
[2019-01-29] MEDS: SERTRALINE HCL 100 MG TABLET PO SCH (09:27)
[2019-01-29] MEDS: CLOTRIMAZOLE 1% CREAM 30 GM TUBE TOP SCH ×2 (09:28→17:45)
[2019-01-29] MEDS: Z GUARD REMEDY PASTE 57 GM TUBE TOP SCH ×2 (09:28→20:57)
[2019-01-29] MEDS: APIXABAN 5 MG PO SCH ×2 (09:45→17:36)
[2019-01-29 17:13] VITALS: BP 99/48
[2019-01-29] MEDS: SIMVASTATIN 10 MG TABLET PO SCH (20:48)
[2019-01-29] MEDS: ARIPIPRAZOLE 10 MG TABLET PO SCH (20:48)
[2019-01-29] MEDS: QUETIAPINE FUMARATE 100 MG TABLET PO SCH (20:57)
[2019-01-29 21:01] VITALS: BP 99/55
[2019-01-30 05:10] VITALS: BP 99/60
[2019-01-30] MEDS: CARBIDOPA/LEVODOPA 25-100MG TABLET PO SCH ×4 (05:51→23:14)
[2019-01-30] MEDS: PRAMIPEXOLE 1 MG TABLET PO SCH ×3 (05:51→21:02)
[2019-01-30] MEDS: LEVOTHYROXINE SODIUM 200 MCG TABLET PO SCH (06:16)
[2019-01-30 07:45] VITALS: BP 93/44
[2019-01-30 08:07] LABS: BASOPHILS # (AUTO) 0.1 K/uL (0.0-8.0); EOSINOPHILS # (AUTO) 0.1 K/uL (0.0-0.7); EOSINOPHILS % (AUTO) 0.8 % (0.0-7.0); HEMATOCRIT 36.1 % (31.2-41.9); HEMOGLOBIN 12.1 g/dL (10.9-14.3); LYMPHOCYTES # (AUTO) 2.3 K/uL (20.0-40.0); LYMPHOCYTES % (AUTO) 26.4 % (20.5-51.5); MEAN CORPUSCULAR HEMOGLOBIN 28.3 uug (24.7-32.8); MEAN CORPUSCULAR HGB CONC 34 g/dL (32.3-35.6); MEAN CORPUSCULAR VOLUME 84.7 fL (75.5-95.3); MONOCYTES # (AUTO) 0.9 K/uL (2.0-10.0); MONOCYTES % (AUTO) 10.1 % (0.0-11.0); NEUTROPHILS # (AUTO) 5.3 K/uL (1.8-8.9); NEUTROPHILS % (AUTO) 61.7 % (38.5-71.5); PLATELET COUNT (AUTO) 198 K/uL (179-408); RED BLOOD CELL COUNT(AUTO) 4.26 MIL/uL (3.63-4.92); WHITE BLOOD COUNT (AUTO) 8.5 K/uL (3.8-11.8)
[2019-01-30 08:23] LABS: CREATININE 0.8 mg/dL (0.6-1.3); MAGNESIUM 1.5 mg/dL (1.8-2.4); PHOSPHOROUS 5.2 mg/dL (2.5-4.9); POTASSIUM 3.7 mmol/L (3.5-5.1)
[2019-01-30] MEDS: TOPIRAMATE 25 MG TABLET PO SCH ×2 (08:55→20:35)
[2019-01-30] MEDS: SERTRALINE HCL 100 MG TABLET PO SCH (08:55)
[2019-01-30] MEDS: CALCIUM CARB/VITAMIN D 500MG-200UNITS TABLET PO SCH ×3 (08:55→16:55)
[2019-01-30] MEDS: METOPROLOL SUCCINATE XL 50 MG TAB.SR.24H PO SCH (08:55)
[2019-01-30] MEDS: FAMOTIDINE 20 MG TABLET PO SCH (08:55)
[2019-01-30] MEDS: POTASSIUM CHLORIDE 20 MEQ POWDER PACKET PO SCH ×2 (08:56→16:52)
[2019-01-30] MEDS: APIXABAN 5 MG PO SCH ×2 (09:03→16:52)
[2019-01-30] MEDS: CLOTRIMAZOLE 1% CREAM 30 GM TUBE TOP SCH ×2 (09:07→16:53)
[2019-01-30] MEDS: Z GUARD REMEDY PASTE 57 GM TUBE TOP SCH ×2 (09:08→20:36)
[2019-01-30] MEDS ORDERED: MAGNESIUM OXIDE 400 MG TABLET PO ONE (11:00)
[2019-01-30 16:57] VITALS: BP 104/48
[2019-01-30] MEDS: SIMVASTATIN 10 MG TABLET PO SCH (20:36)
[2019-01-30] MEDS: QUETIAPINE FUMARATE 100 MG TABLET PO SCH (20:36)
[2019-01-30] MEDS: ARIPIPRAZOLE 10 MG TABLET PO SCH (20:36)
[2019-01-30] MEDS: NITROFURANTOIN/NITROFURAN MAC 100 MG CAPSULE PO SCH (20:36)
[2019-01-30 21:31] VITALS: BP 102/52
[2019-01-31 05:54] VITALS: BP 93/52
[2019-01-31] MEDS: PRAMIPEXOLE 1 MG TABLET PO SCH ×3 (06:01→22:06)
[2019-01-31] MEDS: CARBIDOPA/LEVODOPA 25-100MG TABLET PO SCH ×4 (06:01→23:28)
[2019-01-31] MEDS: LEVOTHYROXINE SODIUM 200 MCG TABLET PO SCH (06:02)
[2019-01-31 07:30] VITALS: BP 103/52
[2019-01-31] MEDS: POTASSIUM CHLORIDE 20 MEQ POWDER PACKET PO SCH ×2 (08:23→17:05)
[2019-01-31] MEDS: METOPROLOL SUCCINATE XL 50 MG TAB.SR.24H PO SCH (08:24)
[2019-01-31] MEDS: TOPIRAMATE 25 MG TABLET PO SCH ×2 (08:26→20:12)
[2019-01-31] MEDS: SERTRALINE HCL 100 MG TABLET PO SCH (08:27)
[2019-01-31] MEDS: CLOTRIMAZOLE 1% CREAM 30 GM TUBE TOP SCH ×2 (08:28→17:10)
[2019-01-31] MEDS: APIXABAN 5 MG PO SCH ×2 (08:29→17:09)
[2019-01-31] MEDS: NITROFURANTOIN/NITROFURAN MAC 100 MG CAPSULE PO SCH ×2 (08:30→20:12)
[2019-01-31] MEDS: CALCIUM CARB/VITAMIN D 500MG-200UNITS TABLET PO SCH ×3 (08:30→17:05)
[2019-01-31] MEDS: FAMOTIDINE 20 MG TABLET PO SCH (08:34)
[2019-01-31] MEDS: Z GUARD REMEDY PASTE 57 GM TUBE TOP SCH ×2 (08:42→20:13)
[2019-01-31 18:31] VITALS: BP 133/73
[2019-01-31] MEDS: ARIPIPRAZOLE 10 MG TABLET PO SCH (20:11)
[2019-01-31] MEDS: QUETIAPINE FUMARATE 100 MG TABLET PO SCH (20:13)
[2019-01-31] MEDS: SIMVASTATIN 10 MG TABLET PO SCH (20:13)
[2019-01-31 20:28] VITALS: BP 95/52
[2019-02-01] MEDS: PRAMIPEXOLE 1 MG TABLET PO SCH ×3 (05:53→21:19)
[2019-02-01 05:54] VITALS: BP 114/67
[2019-02-01] MEDS: CARBIDOPA/LEVODOPA 25-100MG TABLET PO SCH ×3 (05:54→17:00)
[2019-02-01] MEDS: LEVOTHYROXINE SODIUM 200 MCG TABLET PO SCH (06:14)
[2019-02-01 08:50] VITALS: BP 104/72
[2019-02-01] MEDS: NITROFURANTOIN/NITROFURAN MAC 100 MG CAPSULE PO SCH ×2 (08:58→21:20)
[2019-02-01] MEDS: SERTRALINE HCL 100 MG TABLET PO SCH (08:58)
[2019-02-01] MEDS: TOPIRAMATE 25 MG TABLET PO SCH ×2 (08:58→21:21)
[2019-02-01] MEDS: POTASSIUM CHLORIDE 20 MEQ POWDER PACKET PO SCH ×2 (08:58→16:45)
[2019-02-01] MEDS: FAMOTIDINE 20 MG TABLET PO SCH (08:58)
[2019-02-01] MEDS: CALCIUM CARB/VITAMIN D 500MG-200UNITS TABLET PO SCH ×3 (08:59→16:45)
[2019-02-01] MEDS: METOPROLOL SUCCINATE XL 50 MG TAB.SR.24H PO SCH (09:00)
[2019-02-01] MEDS: APIXABAN 5 MG PO SCH ×2 (09:08→16:59)
[2019-02-01] MEDS: CLOTRIMAZOLE 1% CREAM 30 GM TUBE TOP SCH ×2 (09:10→16:46)
[2019-02-01] MEDS: Z GUARD REMEDY PASTE 57 GM TUBE TOP SCH ×2 (09:10→21:21)
[2019-02-01 12:53] LABS: BASOPHILS # (AUTO) 0.1 K/uL (0.0-8.0); BASOPHILS % (AUTO) 0.7 % (0.0-2.0); EOSINOPHILS % (AUTO) 0.2 % (0.0-7.0); HEMATOCRIT 38.1 % (31.2-41.9); HEMOGLOBIN 12.9 g/dL (10.9-14.3); LYMPHOCYTES # (AUTO) 0.8 K/uL (20.0-40.0); LYMPHOCYTES % (AUTO) 9.3 % (20.5-51.5); MEAN CORPUSCULAR HEMOGLOBIN 28.7 uug (24.7-32.8); MEAN CORPUSCULAR HGB CONC 34 g/dL (32.3-35.6); MEAN CORPUSCULAR VOLUME 84.9 fL (75.5-95.3); MONOCYTES # (AUTO) 0.5 K/uL (2.0-10.0); MONOCYTES % (AUTO) 5.4 % (0.0-11.0); NEUTROPHILS # (AUTO) 7.6 K/uL (1.8-8.9); NEUTROPHILS % (AUTO) 84.4 % (38.5-71.5); PLATELET COUNT (AUTO) 243 K/uL (179-408); RED BLOOD CELL COUNT(AUTO) 4.49 MIL/uL (3.63-4.92)
[2019-02-01 12:57] LABS: POTASSIUM 4.3 mmol/L (3.5-5.1)
[2019-02-01 13:03] LABS: BILIRUBIN,TOTAL 0.5 mg/dL (0.2-1.0); TOTAL PROTEIN, SERUM 9.5 g/dL (6.4-8.2)
[2019-02-01] MEDS ORDERED: METOPROLOL TARTRATE 25 MG TABLET PO ONE ×2 (14:45)
[2019-02-01 16:25] VITALS: BP 93/52
[2019-02-01 18:22] VITALS: BP 104/61
[2019-02-01 19:00] VITALS: BP 95/53
[2019-02-01] MEDS: QUETIAPINE FUMARATE 100 MG TABLET PO SCH (21:19)
[2019-02-01] MEDS: ARIPIPRAZOLE 10 MG TABLET PO SCH (21:20)
[2019-02-01] MEDS: SIMVASTATIN 10 MG TABLET PO SCH (21:20)
[2019-02-02] MEDS: CARBIDOPA/LEVODOPA 25-100MG TABLET PO SCH ×5 (00:28→23:11)
[2019-02-02 04:19] VITALS: BP 90/54
[2019-02-02] MEDS: PRAMIPEXOLE 1 MG TABLET PO SCH ×3 (06:03→21:43)
[2019-02-02] MEDS: LEVOTHYROXINE SODIUM 200 MCG TABLET PO SCH (06:04)
[2019-02-02] MEDS: POTASSIUM CHLORIDE 20 MEQ POWDER PACKET PO SCH ×2 (08:42→16:24)
[2019-02-02] MEDS: FAMOTIDINE 20 MG TABLET PO SCH (08:42)
[2019-02-02] MEDS: NITROFURANTOIN/NITROFURAN MAC 100 MG CAPSULE PO SCH ×2 (08:44→21:43)
[2019-02-02] MEDS: TOPIRAMATE 25 MG TABLET PO SCH ×2 (08:44→21:44)
[2019-02-02] MEDS: SERTRALINE HCL 100 MG TABLET PO SCH (08:45)
[2019-02-02] MEDS: CALCIUM CARB/VITAMIN D 500MG-200UNITS TABLET PO SCH ×3 (08:45→16:27)
[2019-02-02] MEDS: APIXABAN 5 MG TABLET PO SCH ×2 (08:46→16:30)
[2019-02-02] MEDS: Z GUARD REMEDY PASTE 57 GM TUBE TOP SCH ×2 (08:47→21:45)
[2019-02-02] MEDS: CLOTRIMAZOLE 1% CREAM 30 GM TUBE TOP SCH ×2 (08:47→16:28)
[2019-02-02] MEDS: METOPROLOL SUCCINATE XL 50 MG TAB.SR.24H PO SCH (08:48)
[2019-02-02 09:01] LABS: BASOPHILS % (AUTO) 0.6 % (0.0-2.0); EOSINOPHILS # (AUTO) 0.1 K/uL (0.0-0.7); HEMATOCRIT 37.3 % (31.2-41.9); HEMOGLOBIN 12.6 g/dL (10.9-14.3); LYMPHOCYTES # (AUTO) 1.7 K/uL (20.0-40.0); LYMPHOCYTES % (AUTO) 23.7 % (20.5-51.5); MEAN CORPUSCULAR HEMOGLOBIN 28.5 uug (24.7-32.8); MEAN CORPUSCULAR HGB CONC 34 g/dL (32.3-35.6); MEAN CORPUSCULAR VOLUME 84.6 fL (75.5-95.3); MONOCYTES # (AUTO) 0.6 K/uL (2.0-10.0); MONOCYTES % (AUTO) 8.8 % (0.0-11.0); NEUTROPHILS # (AUTO) 4.7 K/uL (1.8-8.9); NEUTROPHILS % (AUTO) 65.9 % (38.5-71.5); PLATELET COUNT (AUTO) 258 K/uL (179-408); RED BLOOD CELL COUNT(AUTO) 4.41 MIL/uL (3.63-4.92); WHITE BLOOD COUNT (AUTO) 7.1 K/uL (3.8-11.8)
[2019-02-02 09:04] LABS: MAGNESIUM 1.7 mg/dL (1.8-2.4); PHOSPHOROUS 4.5 mg/dL (2.5-4.9); POTASSIUM 3.4 mmol/L (3.5-5.1)
[2019-02-02 09:31] VITALS: BP 90/40
[2019-02-02] MEDS ORDERED: MAGNESIUM OXIDE 400 MG TABLET PO ONE (15:00)
[2019-02-02] MEDS ORDERED: POTASSIUM CHLORIDE 20 MEQ TAB.PRT.SR PO ONE (15:00)
[2019-02-02] MEDS: SIMVASTATIN 10 MG TABLET PO SCH (21:43)
[2019-02-02] MEDS: QUETIAPINE FUMARATE 100 MG TABLET PO SCH (21:44)
[2019-02-02] MEDS: ARIPIPRAZOLE 10 MG TABLET PO SCH (21:44)
[2019-02-02 22:00] VITALS: BP 126/82
[2019-02-03] MEDS: LEVOTHYROXINE SODIUM 200 MCG TABLET PO SCH (06:18)
[2019-02-03] MEDS: CARBIDOPA/LEVODOPA 25-100MG TABLET PO SCH ×2 (06:18→12:32)
[2019-02-03] MEDS: PRAMIPEXOLE 1 MG TABLET PO SCH (06:18)
[2019-02-03 06:20] VITALS: BP 102/58
[2019-02-03 07:30] VITALS: BP 90/50
[2019-02-03] MEDS: POTASSIUM CHLORIDE 20 MEQ POWDER PACKET PO SCH (08:43)
[2019-02-03] MEDS: FAMOTIDINE 20 MG TABLET PO SCH (08:43)
[2019-02-03 08:44] VITALS: BP 102/58
[2019-02-03] MEDS: METOPROLOL SUCCINATE XL 50 MG TAB.SR.24H PO SCH (08:44)
[2019-02-03] MEDS: SERTRALINE HCL 100 MG TABLET PO SCH (08:45)
[2019-02-03] MEDS: TOPIRAMATE 25 MG TABLET PO SCH (08:45)
[2019-02-03] MEDS: NITROFURANTOIN/NITROFURAN MAC 100 MG CAPSULE PO SCH (08:46)
[2019-02-03] MEDS: CALCIUM CARB/VITAMIN D 500MG-200UNITS TABLET PO SCH ×2 (08:47→12:32)
[2019-02-03] MEDS: CLOTRIMAZOLE 1% CREAM 30 GM TUBE TOP SCH (08:48)
[2019-02-03] MEDS: Z GUARD REMEDY PASTE 57 GM TUBE TOP SCH (08:49)
[2019-02-03] MEDS: APIXABAN 5 MG TABLET PO SCH (08:53)
== END 2019-02-03 16:00 | disposition home health service (06) | DRG 689 ==
PROVIDERS: ADMIT Physical Medicine & Rehabilitation Pain Medicine; ATTEND Physical Medicine & Rehabilitation Pain Medicine
DX: N39.0 Urinary tract infection, site not specified (principal); G92 Toxic encephalopathy; J18.9 Pneumonia, unspecified organism; N17.0 Acute kidney failure with tubular necrosis; D68.59 Other primary thrombophilia; I69.354 Hemiplegia and hemiparesis following cerebral infarction affecting left non-dominant side; E03.9 Hypothyroidism, unspecified; E66.9 Obesity, unspecified; Z68.28 Body mass index [BMI] 28.0-28.9, adult; E78.5 Hyperlipidemia, unspecified; F32.9 Major depressive disorder, single episode, unspecified; G20 Parkinson's disease; I10 Essential (primary) hypertension; I48.2 Chronic atrial fibrillation; I67.2 Cerebral atherosclerosis; Z87.891 Personal history of nicotine dependence; B96.5 Pseudomonas (aeruginosa) (mallei) (pseudomallei) as the cause of diseases classified elsewhere; E86.0 Dehydration; I70.0 Atherosclerosis of aorta; N20.0 Calculus of kidney; Z22.322 Carrier or suspected carrier of Methicillin resistant Staphylococcus aureus; R91.1 Solitary pulmonary nodule; R53.81 Other malaise; R00.0 Tachycardia, unspecified; Z88.5 Allergy status to narcotic agent; Z88.8 Allergy status to other drugs, medicaments and biological substances; Z79.01 Long term (current) use of anticoagulants
CPT/HCPCS: 36415; 70450; 76700; 83735; 84100; 85025; 87077; 87086; 93005; A4663; C1758; J0713; J7030; J7060

== ENCOUNTER 2019-05-06 09:16 | Inpatient (IN) | payer MEDICARE, MEDICAID ==
[~2019-05-06] VITALS: Ht 167.6 cm; Wt 74.4 kg
[~2019-05-06 09:16] MED LIST changes: -CEFT1PIG6 IV
--- NOTE | 2019-05-06 09:41 | NUR ---
PT IS IN ROOM #1B. DR NICKERSON EVALUATED THE PT.
[2019-05-06] MEDS ORDERED: MULT1TAB73 PO (09:43)
[2019-05-06] MEDS ORDERED: DIGO250T PO (09:43)
[2019-05-06 09:55] LABS: BASOPHILS # (AUTO) 0.1 K/uL (0.0-8.0); BASOPHILS % (AUTO) 0.8 % (0.0-2.0); EOSINOPHILS # (AUTO) 0.1 K/uL (0.0-0.7); EOSINOPHILS % (AUTO) 0.8 % (0.0-7.0); HEMOGLOBIN 12.8 g/dL (10.9-14.3); LYMPHOCYTES # (AUTO) 2.2 K/uL (20.0-40.0); LYMPHOCYTES % (AUTO) 23.8 % (20.5-51.5); MEAN CORPUSCULAR HEMOGLOBIN 28.1 uug (24.7-32.8); MEAN CORPUSCULAR HGB CONC 33 g/dL (32.3-35.6); MEAN CORPUSCULAR VOLUME 85.4 fL (75.5-95.3); MONOCYTES # (AUTO) 0.7 K/uL (2.0-10.0); MONOCYTES % (AUTO) 7.1 % (0.0-11.0); NEUTROPHILS # (AUTO) 6.2 K/uL (1.8-8.9); NEUTROPHILS % (AUTO) 67.5 % (38.5-71.5); PLATELET COUNT (AUTO) 278 K/uL (179-408); RED BLOOD CELL COUNT(AUTO) 4.56 MIL/uL (3.63-4.92); WHITE BLOOD COUNT (AUTO) 9.2 K/uL (3.8-11.8)
[2019-05-06 10:01] LABS: CARBON DIOXIDE 29 mmol/L (21-32); CHLORIDE 103 mmol/L (98-107); GLUCOSE 101 mg/dL (74-106); POTASSIUM 3.7 mmol/L (3.5-5.1); UREA NITROGEN, BLOOD 19 mg/dL (7-18)
[2019-05-06 10:07] LABS: ALKALINE PHOSPHATASE 89 U/L (50-136); ASPARTATE AMINOTRANSFERASE 14 U/L (15-37); BILIRUBIN,DIRECT 0.1 mg/dL (0.0-0.2); BILIRUBIN,TOTAL 0.5 mg/dL (0.2-1.0); TOTAL PROTEIN, SERUM 9.5 g/dL (6.4-8.2)
[2019-05-06 10:15] LABS: THYROID STIMULATING HORMONE 0.157 mIU/mL (0.358-3.740)
[2019-05-06 10:26] LABS: ALANINE AMINOTRANSFERASE < 6 U/L (14-59)
[2019-05-06] MEDS ORDERED: IV NORMAL SALINE 250 ML BAG IV ONE (10:30)
[2019-05-06 10:42] LABS: *BILIRUBIN,URIN NEGATIVE (NEGATIVE); *BLOOD, URINE 3+ (NEGATIVE); *CLARITY,URINE CLOUDY (CLEAR); *COLOR,URINE YELLOW (YELLOW); *KETONES,URINE TRACE (NEGATIVE); *UROBILINOGEN,URINE 0.2 E.U./dl (NORMAL); LEUKOCYTE ESTERASE ,URINE 3+ (NEGATIVE); NITRITE, URINE POSITIVE (NEGATIVE); UGLUCOSE NEGATIVE (NEGATIVE)
[2019-05-06 10:49] LABS: BACTERIA,URINE MANY /HPF (NONE SEEN); RBC,URINE 20-50 /HPF (0-3); SQUAMOUS EPITHELIAL CELL,UR FEW /HPF (NONE SEEN); WBC,URINE 50-80 /HPF (0-3)
[2019-05-06] MEDS ORDERED: CEFTRIAXONE 1 G in IV DEXTROSE 5% 50 ML IV ONE (11:00)
[2019-05-06] MEDS ORDERED: CEFTRIAXONE /D5W 50ML IVPB **ER PYXIS IV ONE (11:13)
--- NOTE | 2019-05-06 11:54 | NUR ---
REPORT WAS GIVEN TO RN M/S. PT WAS TRANSFERED TO ROOM #306.
[2019-05-06] MEDS ORDERED: HYDROCODONE/APAP 5-325MG TABLET PO PRN (12:30)
[2019-05-06] MEDS ORDERED: ACETAMINOPHEN 325 MG TABLET PO PRN (12:30)
[2019-05-06] MEDS ORDERED: Z GUARD REMEDY PASTE 57 GM TUBE TOP PRN (12:30)
[2019-05-06] MEDS ORDERED: MAGNESIUM HYDROXIDE 30 ML LIQUID UDC PO PRN (12:30)
[2019-05-06] MEDS ORDERED: ONDANSETRON 4 MG/2 ML VIAL IV PRN (12:30)
--- NOTE | 2019-05-06 12:30 | NUR ---
PATIENT ADMITTED FROM ER DIAGNOSE OF UTI, AND GENERAL WEAKNESS, NO SOB, RESP EVEN NONLABORED,SKIN WARM AND DRY TO TOUCH, NO DISTRESS NOTED AT THIS TIME
[2019-05-06 12:36] VITALS: BP 123/65
[2019-05-06] MEDS: CALCIUM CARB/VITAMIN D 500MG-200UNITS TABLET PO SCH ×2 (14:27→16:06)
[2019-05-06] MEDS: CARBIDOPA/LEVODOPA 25-100MG TABLET PO SCH ×3 (14:28→20:06)
[2019-05-06] MEDS: PRAMIPEXOLE 1 MG TABLET PO SCH ×2 (14:28→16:06)
[2019-05-06 15:42] VITALS: BP 106/53
[2019-05-06] MEDS: IV NS 1000 ML 1,000 ML IV PRN (15:52)
[2019-05-06] MEDS: FAMOTIDINE 20 MG TABLET PO SCH (16:06)
[2019-05-06] MEDS: POTASSIUM CHLORIDE 20 MEQ TAB.PRT.SR PO SCH (16:07)
--- NOTE | 2019-05-06 19:20 | NUR ---
RECEIVED PT AWAKE,ALERT AND ORIENTEDX3. PT SHOWS NO SIGNS OF ACUTE DISTRESS. IV INTACT. SAFETY AND COMFORT PROVIDED. WILL CONTINUE TO MONITOR.
[2019-05-06 19:51] VITALS: BP 124/60
[2019-05-06] MEDS: SIMVASTATIN 10 MG TABLET PO SCH (20:06)
[2019-05-06] MEDS: TOPIRAMATE 25 MG TABLET PO SCH (20:06)
[2019-05-06] MEDS: ARIPIPRAZOLE 10 MG TABLET PO SCH (20:06)
[2019-05-06] MEDS: APIXABAN 5 MG TABLET PO SCH (20:08)
[2019-05-06] MEDS ORDERED: QUETIAPINE FUMARATE 100 MG TABLET PO SCH (21:00)
[2019-05-07 04:43] VITALS: BP 111/57
[2019-05-07] MEDS: IV NS 1000 ML 1,000 ML IV PRN ×2 (05:17→20:18)
[2019-05-07] MEDS: LEVOTHYROXINE SODIUM 200 MCG TABLET PO SCH (06:07)
--- NOTE | 2019-05-07 06:28 | NUR ---
PT SLEPT THROUGHOUT THE SHIFT. PT SHOWS NO SIGNS OF ACUTE DISTRESS. PRESCRIBED MEDICATION GIVEN AND PT TOLERATED IT WELL. SAFETY AND COMFORT PROVIDED. ALL NEEDS ARE MET. WILL ENDORSE TO INCOMING NURSE FOR CONTINUITY OF CARE.
[2019-05-07 07:18] LABS: EOSINOPHILS # (AUTO) 0.1 K/uL (0.0-0.7); MONOCYTES # (AUTO) 0.7 K/uL (2.0-10.0)
[2019-05-07 07:25] LABS: CREATININE 0.9 mg/dL (0.6-1.3); MAGNESIUM 1.8 mg/dL (1.8-2.4); PHOSPHOROUS 4.1 mg/dL (2.5-4.9); POTASSIUM 3.5 mmol/L (3.5-5.1)
[2019-05-07 07:28] LABS: BASOPHILS % (AUTO) 0.4 % (0.0-2.0); EOSINOPHILS % (AUTO) 1.8 % (0.0-7.0); HEMATOCRIT 36.2 % (31.2-41.9); HEMOGLOBIN 11.9 g/dL (10.9-14.3); LYMPHOCYTES # (AUTO) 1.5 K/uL (20.0-40.0); LYMPHOCYTES % (AUTO) 22.4 % (20.5-51.5); MEAN CORPUSCULAR HEMOGLOBIN 28.1 uug (24.7-32.8); MEAN CORPUSCULAR HGB CONC 33 g/dL (32.3-35.6); MEAN CORPUSCULAR VOLUME 85.8 fL (75.5-95.3); MONOCYTES % (AUTO) 10.9 % (0.0-11.0); NEUTROPHILS # (AUTO) 4.2 K/uL (1.8-8.9); NEUTROPHILS % (AUTO) 64.5 % (38.5-71.5); PLATELET COUNT (AUTO) 227 K/uL (179-408); RED BLOOD CELL COUNT(AUTO) 4.22 MIL/uL (3.63-4.92); WHITE BLOOD COUNT (AUTO) 6.5 K/uL (3.8-11.8)
--- NOTE | 2019-05-07 07:49 | NUR ---
received pt. resting in bed alert oriented x3. Pt. has IV in R forearm 22 gauge intact patent running NS 75 cc/hr. Pt. on 2 L NC. Pt. denies pain/ discomfort. Pt. appears in no respiratory distress. Safety measures in place. call light within reach. will continue to monitor pt.
[2019-05-07] MEDS: MULTIVITAMINS,THERAPEUTIC TABLET PO SCH (08:36)
[2019-05-07] MEDS: PRAMIPEXOLE 1 MG TABLET PO SCH ×3 (08:36→17:22)
[2019-05-07] MEDS: CARBIDOPA/LEVODOPA 25-100MG TABLET PO SCH ×4 (08:36→20:16)
[2019-05-07] MEDS: POTASSIUM CHLORIDE 20 MEQ TAB.PRT.SR PO SCH ×2 (08:36→17:23)
[2019-05-07] MEDS: CALCIUM CARB/VITAMIN D 500MG-200UNITS TABLET PO SCH ×3 (08:37→17:24)
[2019-05-07] MEDS: CALCITRIOL 0.25 MCG CAPSULE PO SCH (08:37)
[2019-05-07] MEDS: FAMOTIDINE 20 MG TABLET PO SCH ×2 (08:37→17:23)
[2019-05-07] MEDS: SERTRALINE HCL 100 MG TABLET PO SCH (08:37)
[2019-05-07] MEDS: DIGOXIN 250 MCG TABLET PO SCH (08:40)
[2019-05-07 08:45] LABS: THYROID STIMULATING HORMONE 0.145 mIU/mL (0.358-3.740)
[2019-05-07] MEDS: APIXABAN 5 MG TABLET PO SCH (08:47)
[2019-05-07] MEDS: TOPIRAMATE 25 MG TABLET PO SCH ×2 (08:56→20:16)
[2019-05-07] MEDS ORDERED: Medication Not On Formulary EA (Multivitamins (Multivitamin) 1 EACH) PO SCH (09:00)
[2019-05-07] MEDS: CEFTRIAXONE 1 G in IV DEXTROSE 5% 50 ML IV SCH (11:01)
[2019-05-07 11:35] VITALS: BP 138/63
--- NOTE | 2019-05-07 15:13 | NUR ---
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 Awaiting approval of JOSE patel to put in orders for bactroban and contact precautions.
[2019-05-07 15:46] VITALS: BP 97/48
[2019-05-07] MEDS ORDERED: CALCIUM PO (15:48)
[2019-05-07] MEDS: APIXABAN 5 MG TABLET**PATIENT'S OWN MED PO SCH (17:26)
--- NOTE | 2019-05-07 18:11 | NUR ---
Put in orders for contact isolation and bactroban. Awaiting isolation cart. Called central supply and HS. Pt. compliant with plan of care. Pt. took all medication. Pt. denies pain/ discomfort. Safety measures in place. call light within reach. will endorse to PM nurse.
--- NOTE | 2019-05-07 19:20 | NUR ---
Received patient lying in bed. AAOx3. In no acute distress. Denies any pain or SOB at this time. O2 sat at 98% on O2 at 2LPM via NC in place. IV site on right FA intact and patent. IVF infusing. Isolation precaution observed. Safety measure initiated and call leyva within reach.
[2019-05-07 19:47] VITALS: BP 115/62
[2019-05-07] MEDS: QUETIAPINE FUMARATE 100 MG TABLET PO SCH (20:15)
[2019-05-07] MEDS: ARIPIPRAZOLE 10 MG TABLET PO SCH (20:15)
[2019-05-07] MEDS: SIMVASTATIN 10 MG TABLET PO SCH (20:16)
[2019-05-07] MEDS: MUPIROCIN 2% OINT 22 GM TUBE NS SCH (20:17)
[2019-05-08 04:38] VITALS: BP 100/50
[2019-05-08 06:02] LABS: CREATININE 0.8 mg/dL (0.6-1.3); POTASSIUM 3.4 mmol/L (3.5-5.1)
[2019-05-08] MEDS: LEVOTHYROXINE SODIUM 200 MCG TABLET PO SCH (06:10)
--- NOTE | 2019-05-08 06:17 | NUR ---
AAOx3.In no acute distress. Denies any pain or SOB at this time. O2 sat at 97% on O2 at 2LPM via NC in place. IV site on right FA intact and patent. IVF infusing. Isolation precaution maintained. Safety measure maintained and call leyva within reach.
--- NOTE | 2019-05-08 07:59 | NUR ---
Sleeping, appears comfortable. O2 at 3L/NC, not in distress.
[2019-05-08 08:00] LABS: BASOPHILS % (AUTO) 0.6 % (0.0-2.0); EOSINOPHILS # (AUTO) 0.1 K/uL (0.0-0.7); EOSINOPHILS % (AUTO) 2.1 % (0.0-7.0); HEMATOCRIT 34.4 % (31.2-41.9); LYMPHOCYTES # (AUTO) 2.2 K/uL (20.0-40.0); LYMPHOCYTES % (AUTO) 33.7 % (20.5-51.5); MEAN CORPUSCULAR HEMOGLOBIN 27.6 uug (24.7-32.8); MEAN CORPUSCULAR HGB CONC 32 g/dL (32.3-35.6); MEAN CORPUSCULAR VOLUME 86.2 fL (75.5-95.3); MONOCYTES # (AUTO) 0.7 K/uL (2.0-10.0); MONOCYTES % (AUTO) 10.8 % (0.0-11.0); NEUTROPHILS # (AUTO) 3.5 K/uL (1.8-8.9); NEUTROPHILS % (AUTO) 52.8 % (38.5-71.5); PLATELET COUNT (AUTO) 194 K/uL (179-408); RED BLOOD CELL COUNT(AUTO) 3.99 MIL/uL (3.63-4.92); WHITE BLOOD COUNT (AUTO) 6.6 K/uL (3.8-11.8)
[2019-05-08] MEDS: MUPIROCIN 2% OINT 22 GM TUBE NS SCH ×2 (08:42→20:11)
[2019-05-08] MEDS: POTASSIUM CHLORIDE 20 MEQ TAB.PRT.SR PO SCH ×2 (08:43→18:23)
[2019-05-08] MEDS: FAMOTIDINE 20 MG TABLET PO SCH ×2 (08:43→18:23)
[2019-05-08] MEDS: PRAMIPEXOLE 1 MG TABLET PO SCH ×3 (08:43→18:23)
[2019-05-08] MEDS: CARBIDOPA/LEVODOPA 25-100MG TABLET PO SCH ×4 (08:44→20:10)
[2019-05-08] MEDS: CALCITRIOL 0.25 MCG CAPSULE PO SCH (08:44)
[2019-05-08] MEDS: MULTIVITAMINS,THERAPEUTIC TABLET PO SCH (08:44)
[2019-05-08] MEDS: SERTRALINE HCL 100 MG TABLET PO SCH (08:45)
[2019-05-08] MEDS: CALCIUM CARB/VITAMIN D 500MG-200UNITS TABLET PO SCH ×3 (08:45→18:23)
[2019-05-08] MEDS: APIXABAN 5 MG TABLET**PATIENT'S OWN MED PO SCH ×2 (08:46→18:29)
[2019-05-08] MEDS: DIGOXIN 250 MCG TABLET PO SCH (08:48)
[2019-05-08] MEDS: TOPIRAMATE 25 MG TABLET PO SCH ×2 (08:59→20:10)
[2019-05-08] MEDS ORDERED: POTASSIUM CHLORIDE 20 MEQ TAB.PRT.SR PO ONE (10:00)
[2019-05-08] MEDS: CEFTRIAXONE 1 G in IV DEXTROSE 5% 50 ML IV SCH (11:08)
[2019-05-08 11:30] VITALS: BP 111/69
[2019-05-08 11:50] VITALS: BP 87/41
--- NOTE | 2019-05-08 12:30 | NUR ---
Assisted with meals by caregiver, with fair appetite
[2019-05-08 13:02] VITALS: BP 99/44
[2019-05-08 15:30] VITALS: BP 104/45
[2019-05-08] MEDS: CEFEPIME HCL 1 G in IV DEXTROSE 5% 50 ML IV SCH (15:40)
--- NOTE | 2019-05-08 15:40 | NUR ---
Urine CS Report reviewed by ID with new order of IV Antibiotics, Maxepime started
--- NOTE | 2019-05-08 19:05 | NUR ---
Incontinence care done. Repositioned in bed comfortably. Afebrile
[2019-05-08 19:47] VITALS: BP 101/50
[2019-05-08] MEDS: IV NS 1000 ML 1,000 ML IV PRN (20:00)
[2019-05-08] MEDS: QUETIAPINE FUMARATE 100 MG TABLET PO SCH (20:10)
[2019-05-08] MEDS: SIMVASTATIN 10 MG TABLET PO SCH (20:10)
[2019-05-08] MEDS: ARIPIPRAZOLE 10 MG TABLET PO SCH (20:10)
[2019-05-09] MEDS: CEFEPIME HCL 1 G in IV DEXTROSE 5% 50 ML IV SCH ×2 (03:03→14:35)
[2019-05-09 05:44] VITALS: BP 104/49
[2019-05-09] MEDS: LEVOTHYROXINE SODIUM 200 MCG TABLET PO SCH (06:11)
--- NOTE | 2019-05-09 06:21 | NUR ---
Patient slept well throughout the night. Afebrile throughout the shift. Attended all needs. Ensured safety and comfort. No other complaints made. Maintained contact isolation for MRSA of the nares. Noted plans to shift IV antibiotics to oral antibiotics and plan for discharge, Will endorse accordingly.
[2019-05-09 07:00] LABS: BASOPHILS % (AUTO) 0.7 % (0.0-2.0); EOSINOPHILS # (AUTO) 0.1 K/uL (0.0-0.7); EOSINOPHILS % (AUTO) 2.1 % (0.0-7.0); HEMATOCRIT 34.1 % (31.2-41.9); HEMOGLOBIN 11.2 g/dL (10.9-14.3); LYMPHOCYTES # (AUTO) 1.4 K/uL (20.0-40.0); LYMPHOCYTES % (AUTO) 29.2 % (20.5-51.5); MEAN CORPUSCULAR HEMOGLOBIN 28.5 uug (24.7-32.8); MEAN CORPUSCULAR HGB CONC 33 g/dL (32.3-35.6); MONOCYTES # (AUTO) 0.5 K/uL (2.0-10.0); MONOCYTES % (AUTO) 10.4 % (0.0-11.0); NEUTROPHILS # (AUTO) 2.8 K/uL (1.8-8.9); NEUTROPHILS % (AUTO) 57.6 % (38.5-71.5); PLATELET COUNT (AUTO) 199 K/uL (179-408); RED BLOOD CELL COUNT(AUTO) 3.92 MIL/uL (3.63-4.92); WHITE BLOOD COUNT (AUTO) 4.9 K/uL (3.8-11.8)
[2019-05-09 07:09] LABS: CREATININE 0.8 mg/dL (0.6-1.3); MAGNESIUM 1.5 mg/dL (1.8-2.4); PHOSPHOROUS 3.2 mg/dL (2.5-4.9); POTASSIUM 3.4 mmol/L (3.5-5.1)
--- NOTE | 2019-05-09 07:49 | NUR ---
RECEIVED PT RESTING COMFORTABLY IN BED. PT IS ON CONTACT ISOLATION FOR MRSA OF THE NARES. NO ACUTE DISTRESS OR SOB NOTED AT THIS TIME. BED LOCKED AND IN LOW POSITION. WILL CONTINUE TO MONITOR FOR SAFETY AND COMFORT.
[2019-05-09] MEDS: PRAMIPEXOLE 1 MG TABLET PO SCH ×4 (08:38→17:31)
[2019-05-09] MEDS: FAMOTIDINE 20 MG TABLET PO SCH ×2 (08:38→17:28)
[2019-05-09] MEDS: MULTIVITAMINS,THERAPEUTIC TABLET PO SCH (08:38)
[2019-05-09] MEDS: POTASSIUM CHLORIDE 20 MEQ TAB.PRT.SR PO SCH ×3 (08:38→17:31)
[2019-05-09] MEDS: CALCIUM CARB/VITAMIN D 500MG-200UNITS TABLET PO SCH ×3 (08:39→17:22)
[2019-05-09] MEDS: CARBIDOPA/LEVODOPA 25-100MG TABLET PO SCH ×4 (08:39→17:31)
[2019-05-09] MEDS: TOPIRAMATE 25 MG TABLET PO SCH (08:39)
[2019-05-09] MEDS: SERTRALINE HCL 100 MG TABLET PO SCH (08:39)
[2019-05-09] MEDS: CALCITRIOL 0.25 MCG CAPSULE PO SCH (08:40)
[2019-05-09] MEDS: APIXABAN 5 MG TABLET**PATIENT'S OWN MED PO SCH ×2 (08:42→17:22)
[2019-05-09] MEDS ORDERED: SULF1TAB48 PO (08:47)
[2019-05-09] MEDS: MUPIROCIN 2% OINT 22 GM TUBE NS SCH (08:47)
[2019-05-09] MEDS ORDERED: ASPI81TA31 PO (08:47)
[2019-05-09] MEDS: DIGOXIN 250 MCG TABLET PO SCH (08:47)
[2019-05-09] MEDS ORDERED: ASPIRIN 81 MG TAB.CHEW PO SCH (09:00)
[2019-05-09] MEDS: IV NS 1000 ML 1,000 ML IV PRN (10:13)
[2019-05-09] MEDS ORDERED: POTASSIUM CHLORIDE 20 MEQ TAB.PRT.SR PO ONE (10:30)
[2019-05-09 11:03] VITALS: BP 120/57
--- NOTE | 2019-05-09 12:00 | NUR ---
RECEIVED ORDER FOR DISCHARGE. PT RESTING COMFORTABLY IN BED. PT IS ON CONTACT ISOLATION FOR MRSA OF THE NARES. NO ACUTE DISTRESS OR SOB NOTED AT THIS TIME. BED LOCKED AND IN LOW POSITION. WILL CONTINUE TO MONITOR FOR SAFETY AND COMFORT.
[2019-05-09] MEDS ORDERED: MAGNESIUM OXIDE 400 MG TABLET PO ONE (15:00)
[2019-05-09 15:14] VITALS: BP 125/56
--- NOTE | 2019-05-09 16:30 | NUR ---
PT RESTING COMFORTABLY IN BED. NO SIGNS OF SOB OR ACUTE DISTRESS NOTED AT THIS TIME. PT DENIES PAIN AT THIS TIME. BED LOCKED AND IN LOW POSITION. DISCHARGE DOCUMENTS PRINTED. SKIN PICTURES TAKEN. BELONGINGS GATHERED. HOME MEDS PICKED UP FROM PHARMACY. AWAITING SON IN ORDER TO SIGN DISCHARGE DOCUMENTS. AWAITING [facility] TO TRANSPORT PT HOME. WILL CONTINUE TO MONITOR.
--- NOTE | 2019-05-09 18:20 | NUR ---
PT DISCHARGED. DISCHARGE INSTRUCTIONS GIVEN TO VIVI, SON, ALONG WITH PRESCRIPTION. PT DISCHARGED HOME VIA AMBULANCE TRANSPORT SERVICE. NO ACUTE DISTRESS NOTED. NO SOB NOTED. BELONGINGS RETURNED. PT ALERT AND ORIENTED X3.
== END 2019-05-09 18:15 | disposition home or self-care (01) | DRG 689 ==
LOC: ER 09:16 → MEDSURG3 11:45
PROVIDERS: ADMIT Nurse Practitioner Acute Care; ATTEND Nurse Practitioner Acute Care
DX: N39.0 Urinary tract infection, site not specified (principal); G93.41 Metabolic encephalopathy; R53.2 Functional quadriplegia; D68.59 Other primary thrombophilia; I69.354 Hemiplegia and hemiparesis following cerebral infarction affecting left non-dominant side; J98.11 Atelectasis; I67.2 Cerebral atherosclerosis; I48.91 Unspecified atrial fibrillation; I70.0 Atherosclerosis of aorta; G20 Parkinson's disease; E89.0 Postprocedural hypothyroidism; E86.0 Dehydration; B96.4 Proteus (mirabilis) (morganii) as the cause of diseases classified elsewhere; B96.20 Unspecified Escherichia coli [E. coli] as the cause of diseases classified elsewhere; R80.9 Proteinuria, unspecified; R31.29 Other microscopic hematuria; Z87.440 Personal history of urinary (tract) infections; Z90.49 Acquired absence of other specified parts of digestive tract; Z85.038 Personal history of other malignant neoplasm of large intestine; Z82.49 Family history of ischemic heart disease and other diseases of the circulatory system; Z87.891 Personal history of nicotine dependence; Z79.01 Long term (current) use of anticoagulants; Z79.899 Other long term (current) drug therapy
CPT/HCPCS: 36415; 70030-TC; 70450; 71045; 83735; 84100; 84443; 85025; 85730; 87040; 87077; 87086; 93005; A4663; G0378; J0692; J0696; J7030; J7060

== ENCOUNTER 2019-05-22 17:03 | Inpatient (IN) | payer MEDICARE, MEDICAID ==
[~2019-05-22] VITALS: Ht 167.6 cm; Wt 74.8 kg
[~2019-05-22 17:03] MED LIST changes: +ASPI81TA31 PO; -CALC1TAB30 PO; +CALCIUM PO; +DIGO250T PO; -METO50TA7 PO; +MULT1TAB73 PO; -ONDA4TAB5 PO; +SULF1TAB48 PO
[2019-05-22] MEDS ORDERED: IV NORMAL SALINE 1000 ML BAG IV ONE (17:15)
--- NOTE | 2019-05-22 17:26 | NUR ---
PT IS IN ROOM #1B. DR CAMILO EVALUATED THE PT.
[2019-05-22 17:51] LABS: BASOPHILS # (AUTO) 0.1 K/uL (0.0-8.0); BASOPHILS % (AUTO) 1.2 % (0.0-2.0); EOSINOPHILS # (AUTO) 0.1 K/uL (0.0-0.7); EOSINOPHILS % (AUTO) 2.3 % (0.0-7.0); HEMATOCRIT 41.4 % (31.2-41.9); HEMOGLOBIN 13.6 g/dL (10.9-14.3); LYMPHOCYTES # (AUTO) 2.1 K/uL (20.0-40.0); MEAN CORPUSCULAR HEMOGLOBIN 28.6 uug (24.7-32.8); MEAN CORPUSCULAR HGB CONC 33 g/dL (32.3-35.6); MEAN CORPUSCULAR VOLUME 87.3 fL (75.5-95.3); MONOCYTES # (AUTO) 0.3 K/uL (2.0-10.0); MONOCYTES % (AUTO) 6.7 % (0.0-11.0); NEUTROPHILS # (AUTO) 2.4 K/uL (1.8-8.9); NEUTROPHILS % (AUTO) 47.8 % (38.5-71.5); PLATELET COUNT (AUTO) 222 K/uL (179-408); RED BLOOD CELL COUNT(AUTO) 4.74 MIL/uL (3.63-4.92); WHITE BLOOD COUNT (AUTO) 5.1 K/uL (3.8-11.8)
[2019-05-22 18:01] LABS: *BILIRUBIN,URIN NEGATIVE (NEGATIVE); *COLOR,URINE YELLOW (YELLOW); *KETONES,URINE NEGATIVE (NEGATIVE); *UROBILINOGEN,URINE 0.2 E.U./dl (NORMAL); LEUKOCYTE ESTERASE ,URINE NEGATIVE (NEGATIVE); NITRITE, URINE NEGATIVE (NEGATIVE); PH,URINE 7.5 (5.0-8.0); UGLUCOSE NEGATIVE (NEGATIVE)
[2019-05-22 18:04] LABS: CREATININE 0.8 mg/dL (0.6-1.3); POTASSIUM 3.6 mmol/L (3.5-5.1)
[2019-05-22 18:07] LABS: *BLOOD, URINE TRACE (NEGATIVE); *CLARITY,URINE HAZY (CLEAR)
[2019-05-22 18:11] LABS: BACTERIA,URINE FEW /HPF (NONE SEEN); CALCIUM OXALATE CRYSTALS,UR FEW /HPF (NONE SEEN); SQUAMOUS EPITHELIAL CELL,UR FEW /HPF (NONE SEEN); WBC,URINE 0-3 /HPF (0-3)
[2019-05-22 18:21] LABS: BILIRUBIN,DIRECT 0.2 mg/dL (0.0-0.2); BILIRUBIN,TOTAL 0.5 mg/dL (0.2-1.0); TOTAL PROTEIN, SERUM 8.5 g/dL (6.4-8.2)
--- NOTE | 2019-05-22 18:40 | NUR ---
[facility] WAS CALLED TO SPEAK TO ADMITTING MD Abiel BROWN.
[2019-05-22] MEDS ORDERED: SERT100T PO (18:48)
[2019-05-22] MEDS ORDERED: METO50TA7 PO (18:48)
[2019-05-22] MEDS ORDERED: POTA10CA43 PO (18:48)
[2019-05-22] MEDS ORDERED: QUET100T PO (18:48)
[2019-05-22] MEDS ORDERED: QUET50TA PO ×2 (18:48)
[2019-05-22] MEDS ORDERED: CALC0.5C11 PO (18:48)
--- NOTE | 2019-05-22 19:16 | NUR ---
hand off and sbar received fr outgoing day shift RN (EDY) DX: GEN WEAKNESS/LETHARGY FR HOME ERMD on the phone with cardiology (Ba) epic called again (Abiel Khanna) pt for admit to tele pending bed availablility G 22 R WRIST SALINE LOCK PT IS ON LOW HINES'S SON AT BEDSIDE STABLE AFIB, HR 75 150/101MMHG 97% SPO2
--- NOTE | 2019-05-22 19:18 | NUR ---
RECHECK BP: LEFT ARM 143/64MMHG
--- NOTE | 2019-05-22 19:21 | NUR ---
JEFFERY ON THE PHONE W/ T. KEVIN DX GEN WEAKNESS/LETHARGY TELE RM 312 RN MIKEL ALL BELONGINGS ACCOUNTED FOR BELONGINGS LIST SIGNED
--- NOTE | 2019-05-22 19:37 | NUR ---
HAND OFF AND SBAR GIVEN TO MIKEL RN Pt. admitted to TELE RM 312 , under care of Dr. RHYS BROWN Belongs List completed
[2019-05-22] MEDS ORDERED: ACETAMINOPHEN 325 MG TABLET PO PRN (20:30)
[2019-05-22] MEDS ORDERED: ONDANSETRON 4 MG/2 ML VIAL IV PRN (20:30)
[2019-05-22 20:33] VITALS: BP 114/73
[2019-05-22] MEDS ORDERED: SIMVASTATIN 10 MG TABLET PO SCH (21:00)
[2019-05-22] MEDS: CARBIDOPA/LEVODOPA 25-100MG TABLET PO SCH (21:19)
[2019-05-22] MEDS: ARIPIPRAZOLE 10 MG TABLET PO SCH (21:19)
[2019-05-22] MEDS: QUETIAPINE FUMARATE 25 MG TABLET PO SCH (21:19)
[2019-05-22] MEDS: SIMVASTATIN 40 MG TABLET PO SCH (21:19)
[2019-05-22] MEDS: TOPIRAMATE 25 MG TABLET PO SCH (21:19)
[2019-05-22] MEDS: IV NS 1000 ML 1,000 ML IV PRN (21:51)
[2019-05-23 00:35] VITALS: BP 119/56
[2019-05-23 04:00] VITALS: BP 122/64
--- NOTE | 2019-05-23 05:14 | NUR ---
Patient received from ER with son at bedside. admissions process completed. v/s stable and no signs of acute distress noted throughout shift. safety and comfort measures provided. side rails up x2, bed in lowest position and bed alarm on. all medications administered and tolerated well. all needs met. will continue plan of care and endorse accordingly to morning nurse.
[2019-05-23] MEDS: LEVOTHYROXINE SODIUM 200 MCG TABLET PO SCH ×3 (06:08→07:00)
[2019-05-23 06:34] LABS: BASOPHILS % (AUTO) 0.9 % (0.0-2.0); EOSINOPHILS # (AUTO) 0.1 K/uL (0.0-0.7); EOSINOPHILS % (AUTO) 2.1 % (0.0-7.0); HEMATOCRIT 36.2 % (31.2-41.9); HEMOGLOBIN 11.8 g/dL (10.9-14.3); LYMPHOCYTES # (AUTO) 2.2 K/uL (20.0-40.0); LYMPHOCYTES % (AUTO) 43.3 % (20.5-51.5); MEAN CORPUSCULAR HEMOGLOBIN 28.4 uug (24.7-32.8); MEAN CORPUSCULAR HGB CONC 33 g/dL (32.3-35.6); MONOCYTES # (AUTO) 0.4 K/uL (2.0-10.0); MONOCYTES % (AUTO) 7.2 % (0.0-11.0); NEUTROPHILS # (AUTO) 2.3 K/uL (1.8-8.9); NEUTROPHILS % (AUTO) 46.5 % (38.5-71.5); PLATELET COUNT (AUTO) 191 K/uL (179-408); RED BLOOD CELL COUNT(AUTO) 4.16 MIL/uL (3.63-4.92)
--- NOTE | 2019-05-23 06:46 | NUR ---
patient refused levothyroxine despite education. wasted in pyxis.
[2019-05-23 06:49] LABS: CREATININE 0.8 mg/dL (0.6-1.3); MAGNESIUM 1.4 mg/dL (1.8-2.4); PHOSPHOROUS 3.4 mg/dL (2.5-4.9); POTASSIUM 3.3 mmol/L (3.5-5.1)
[2019-05-23] MEDS: TOPIRAMATE 25 MG TABLET PO SCH ×2 (08:29→20:03)
[2019-05-23] MEDS: PRAMIPEXOLE 1 MG TABLET PO SCH ×3 (08:29→16:15)
[2019-05-23] MEDS: CARBIDOPA/LEVODOPA 25-100MG TABLET PO SCH ×4 (08:29→20:03)
[2019-05-23] MEDS: DIGOXIN 250 MCG TABLET PO SCH (08:29)
[2019-05-23] MEDS: CALCITRIOL 0.25 MCG CAPSULE PO SCH (08:29)
[2019-05-23] MEDS: FAMOTIDINE 20 MG TABLET PO SCH ×2 (08:30→16:15)
[2019-05-23] MEDS: POTASSIUM CHLORIDE 10 MEQ TAB.PRT.SR PO SCH ×2 (08:30→16:15)
[2019-05-23] MEDS: MULTIVITAMINS,THERAPEUTIC TABLET PO SCH (08:30)
[2019-05-23] MEDS: SERTRALINE HCL 100 MG TABLET PO SCH (08:30)
[2019-05-23] MEDS: QUETIAPINE FUMARATE 25 MG TABLET PO SCH ×3 (08:30→20:03)
[2019-05-23] MEDS: METOPROLOL SUCCINATE XL 50 MG TAB.SR.24H PO SCH (08:30)
[2019-05-23] MEDS ORDERED: QUETIAPINE FUMARATE 100 MG TABLET PO SCH (09:00)
[2019-05-23] MEDS ORDERED: ASPIRIN 81 MG TAB.CHEW PO SCH (09:00)
[2019-05-23] MEDS ORDERED: CALCITRIOL 0.25 MCG CAPSULE PO SCH (09:00)
[2019-05-23] MEDS: IV NS 1000 ML 1,000 ML IV PRN (11:04)
[2019-05-23 11:41] VITALS: BP 120/54
[2019-05-23] MEDS ORDERED: POTASSIUM CHLORIDE 20 MEQ POWDER PACKET PO ONE (12:15)
[2019-05-23] MEDS: MAGNESIUM SULFATE/D5W 100 ML IV SCH ×4 (12:21→16:14)
--- NOTE | 2019-05-23 13:08 | NUR ---
WOUND CARE CONSULT: PT PRESENTS WITH INCONTINENCE ASSOCIATED SKIN DAMAGE TO GLUTEAL CREASE WITH SACRAL SCARRING AND DISCOLORATION, PRESENT ON ADMISSION. RECOMMENDATIONS MADE FOR SKIN PROTECTION AND SKIN CARE. DISCUSSED WITH NURSING STAFF. WILL SEE ALFREDITO. [facility]. MD IN AGREEMENT WITH PLAN OF CARE. Addendum: 05/23/19 at 1310 by MARIO LLAMAS RN Amended: Links added.
[2019-05-23 15:42] VITALS: BP 135/64
--- NOTE | 2019-05-23 17:08 | NUR ---
Patient resting in bed, no distress or pain noted. Magnesium and potassium replaced. Seen by PT today for consult, maximum assist refer to note. Wound consult today for sacral/coccyx wound done today, care done per orders. Soft spoken, weakness noted. Swallow eval placed today. Echo done today, refer to findings.
[2019-05-23] MEDS: SIMVASTATIN 40 MG TABLET PO SCH (20:03)
[2019-05-23 20:25] VITALS: BP 111/54
[2019-05-23 21:21] VITALS: BP 141/72
[2019-05-23] MEDS: ARIPIPRAZOLE 10 MG TABLET PO SCH (21:32)
[2019-05-24 01:20] VITALS: BP 100/45
[2019-05-24 04:44] VITALS: BP 100/55
--- NOTE | 2019-05-24 05:51 | NUR ---
Patient slept well throughout the night. Attended all needs. Ensured safety and comfort. No complaints made. No other untoward events noted. Will endorse accordingly.
[2019-05-24] MEDS: LEVOTHYROXINE SODIUM 200 MCG TABLET PO SCH (06:17)
[2019-05-24] MEDS: POTASSIUM CHLORIDE 10 MEQ TAB.PRT.SR PO SCH (08:38)
[2019-05-24] MEDS: CARBIDOPA/LEVODOPA 25-100MG TABLET PO SCH ×4 (08:39→20:37)
[2019-05-24] MEDS: PRAMIPEXOLE 1 MG TABLET PO SCH ×3 (08:39→16:44)
[2019-05-24] MEDS: FAMOTIDINE 20 MG TABLET PO SCH ×2 (08:39→16:44)
[2019-05-24] MEDS: QUETIAPINE FUMARATE 25 MG TABLET PO SCH (08:39)
[2019-05-24] MEDS: MULTIVITAMINS,THERAPEUTIC TABLET PO SCH (08:39)
[2019-05-24] MEDS: CALCITRIOL 0.25 MCG CAPSULE PO SCH (08:39)
[2019-05-24] MEDS: DIGOXIN 250 MCG TABLET PO SCH (08:47)
[2019-05-24] MEDS: METOPROLOL SUCCINATE XL 50 MG TAB.SR.24H PO SCH (08:48)
[2019-05-24] MEDS: SERTRALINE HCL 100 MG TABLET PO SCH (09:10)
[2019-05-24] MEDS: TOPIRAMATE 25 MG TABLET PO SCH ×2 (09:11→20:37)
--- NOTE | 2019-05-24 09:30 | NUR ---
AWAKE ATTEMPTS TO VERBALISE VERY SOFT BUT IS UNABLE TO MAKE NEEDS KNOWN ALL NEEDS ANTICIPATED AND SATISFIED TURNED AND REPOSITIONED Q2H HEELS FLOATED MADE COMFORTABLE WILL CONTINUE TO OBSERVE.
[2019-05-24 11:19] VITALS: BP 113/52
[2019-05-24 11:26] LABS: BASOPHILS # (AUTO) 0.1 K/uL (0.0-8.0); BASOPHILS % (AUTO) 0.7 % (0.0-2.0); EOSINOPHILS # (AUTO) 0.1 K/uL (0.0-0.7); EOSINOPHILS % (AUTO) 1.6 % (0.0-7.0); HEMATOCRIT 38.8 % (31.2-41.9); HEMOGLOBIN 12.8 g/dL (10.9-14.3); LYMPHOCYTES # (AUTO) 2.5 K/uL (20.0-40.0); LYMPHOCYTES % (AUTO) 35.1 % (20.5-51.5); MEAN CORPUSCULAR HEMOGLOBIN 28.7 uug (24.7-32.8); MEAN CORPUSCULAR HGB CONC 33 g/dL (32.3-35.6); MEAN CORPUSCULAR VOLUME 87.1 fL (75.5-95.3); MONOCYTES # (AUTO) 0.4 K/uL (2.0-10.0); MONOCYTES % (AUTO) 6.1 % (0.0-11.0); NEUTROPHILS % (AUTO) 56.5 % (38.5-71.5); PLATELET COUNT (AUTO) 193 K/uL (179-408); RED BLOOD CELL COUNT(AUTO) 4.46 MIL/uL (3.63-4.92); WHITE BLOOD COUNT (AUTO) 7.2 K/uL (3.8-11.8)
--- NOTE | 2019-05-24 11:30 | NUR ---
PATIENT SEEN BY DR RHYS JENKINS WITH ORDERS PATIENT STRAIGHT CATH AND SPECIMEN SENT TO THE LAB ORDERED WILL CONTINUE TO OBSERVE.
[2019-05-24 11:56] LABS: BILIRUBIN,TOTAL 0.4 mg/dL (0.2-1.0); CREATININE 0.8 mg/dL (0.6-1.3); MAGNESIUM 2.2 mg/dL (1.8-2.4); PHOSPHOROUS 2.9 mg/dL (2.5-4.9); POTASSIUM 3.4 mmol/L (3.5-5.1); TOTAL PROTEIN, SERUM 7.5 g/dL (6.4-8.2)
[2019-05-24 13:43] LABS: *BILIRUBIN,URIN NEGATIVE (NEGATIVE); *BLOOD, URINE 3+ (NEGATIVE); *CLARITY,URINE CLOUDY (CLEAR); *COLOR,URINE YELLOW (YELLOW); *KETONES,URINE NEGATIVE (NEGATIVE); *UROBILINOGEN,URINE 0.2 E.U./dl (NORMAL); LEUKOCYTE ESTERASE ,URINE 3+ (NEGATIVE); NITRITE, URINE NEGATIVE (NEGATIVE); PH,URINE 7.5 (5.0-8.0); UGLUCOSE NEGATIVE (NEGATIVE)
[2019-05-24 13:57] LABS: BACTERIA,URINE FEW /HPF (NONE SEEN); SQUAMOUS EPITHELIAL CELL,UR FEW /HPF (NONE SEEN)
[2019-05-24] MEDS ORDERED: MAGNESIUM SULFATE/D5W 100 ML IV SCH (14:15)
[2019-05-24] MEDS ORDERED: CEFTRIAXONE 1 G in IV DEXTROSE 5% 50 ML IV SCH (15:00)
[2019-05-24 15:21] VITALS: BP 96/50
[2019-05-24] MEDS: CEFEPIME HCL 2 G in IV DEXTROSE 5% 100 ML IV SCH ×2 (15:33→21:21)
[2019-05-24] MEDS: Z GUARD REMEDY PASTE 57 GM TUBE TOP PRN (16:44)
[2019-05-24] MEDS: POTASSIUM CHLORIDE 40 MEQ in IV D5 1/2 NS 1000 ML 1,000 ML IV PRN (16:46)
--- NOTE | 2019-05-24 16:51 | NUR ---
RESTING IN BED AWAKE ALERT TO SELF TURNED AND REPOSITIONED JOSUE CARE TOLERATED WELL INCONTINENT OF BLADDER STATED ON ATB AND IVF ORDERED MADE COMFORTABLE WILL CONTINUE TO OBSERVE.
--- NOTE | 2019-05-24 19:30 | NUR ---
Received patient lying in bed. Awake but non-verbal at this time. Able to make eye contact when spoken to. In no acute distress. A. fib. controlled on tele at 52/min. IV site on right wrist area intact and patent. IVF infusing. Safety measure initiated and call leyva within reach. Continue to monitor.
[2019-05-24 20:12] VITALS: BP 107/55
[2019-05-24] MEDS: ARIPIPRAZOLE 10 MG TABLET PO SCH (20:37)
[2019-05-24] MEDS: SIMVASTATIN 40 MG TABLET PO SCH (20:37)
[2019-05-25 00:39] VITALS: BP 132/51
[2019-05-25 04:00] VITALS: BP 135/54
[2019-05-25] MEDS: CEFEPIME HCL 2 G in IV DEXTROSE 5% 100 ML IV SCH ×3 (05:05→21:19)
--- NOTE | 2019-05-25 06:09 | NUR ---
assumed care from Nurse Saniya Mercado; pt repositioned q2h and incontinence care done; VSS; plan of care continued; continue to observe.
[2019-05-25] MEDS: LEVOTHYROXINE SODIUM 200 MCG TABLET PO SCH (06:17)
[2019-05-25] MEDS: Z GUARD REMEDY PASTE 57 GM TUBE TOP PRN ×2 (06:17→08:48)
[2019-05-25 07:15] LABS: CREATININE 0.6 mg/dL (0.6-1.3); MAGNESIUM 1.8 mg/dL (1.8-2.4); PHOSPHOROUS 3.6 mg/dL (2.5-4.9); POTASSIUM 4.2 mmol/L (3.5-5.1)
--- NOTE | 2019-05-25 07:15 | NUR ---
RECEIVED PATIENT IN BED WITH NO HEPLOCK AND THE STORY IS THAT HER HOP LOCK GOT INFILTERATED AND SO MANY ATTEMPTS TO REINSERT FAILED MANY MORE ATTEMPTS MADE BY ME AND ANOTHER NURSE TO NO AVAIL VEINS VERY FRAGILE AND UNABLE TO REINSERT AT THIS TIME WILL NOTIFY DR JENKINS TO DETERMINE NEXT PLAN OF CARE.PATIENT IS AWAKE AND MOVES HER RIGHT ARM WE ATTEMPT TO INSERT THE HEP LOCK ALL NEEDS ANTICIPATED AND SATISFIED TURNED AND REPOSITIONED MADE COMFORTABLE WILL CONTINUE TO OBSERVE.
[2019-05-25 07:16] LABS: BASOPHILS # (AUTO) 0.1 K/uL (0.0-8.0); BASOPHILS % (AUTO) 0.7 % (0.0-2.0); EOSINOPHILS # (AUTO) 0.2 K/uL (0.0-0.7); EOSINOPHILS % (AUTO) 2.6 % (0.0-7.0); HEMATOCRIT 39.8 % (31.2-41.9); HEMOGLOBIN 12.9 g/dL (10.9-14.3); LYMPHOCYTES % (AUTO) 13.3 % (20.5-51.5); MEAN CORPUSCULAR HEMOGLOBIN 28.4 uug (24.7-32.8); MEAN CORPUSCULAR HGB CONC 32 g/dL (32.3-35.6); MEAN CORPUSCULAR VOLUME 87.7 fL (75.5-95.3); MONOCYTES # (AUTO) 0.4 K/uL (2.0-10.0); MONOCYTES % (AUTO) 4.5 % (0.0-11.0); NEUTROPHILS # (AUTO) 6.2 K/uL (1.8-8.9); NEUTROPHILS % (AUTO) 78.9 % (38.5-71.5); PLATELET COUNT (AUTO) 150 K/uL (179-408); RED BLOOD CELL COUNT(AUTO) 4.54 MIL/uL (3.63-4.92); WHITE BLOOD COUNT (AUTO) 7.9 K/uL (3.8-11.8)
[2019-05-25] MEDS: FAMOTIDINE 20 MG TABLET PO SCH ×2 (08:46→16:25)
[2019-05-25] MEDS: TOPIRAMATE 25 MG TABLET PO SCH ×2 (08:46→21:19)
[2019-05-25] MEDS: PRAMIPEXOLE 1 MG TABLET PO SCH ×3 (08:46→16:25)
[2019-05-25] MEDS: MULTIVITAMINS,THERAPEUTIC TABLET PO SCH (08:46)
[2019-05-25] MEDS: SERTRALINE HCL 100 MG TABLET PO SCH (08:46)
[2019-05-25] MEDS: CARBIDOPA/LEVODOPA 25-100MG TABLET PO SCH ×4 (08:46→21:19)
[2019-05-25] MEDS: METOPROLOL SUCCINATE XL 50 MG TAB.SR.24H PO SCH (08:47)
[2019-05-25] MEDS: DIGOXIN 250 MCG TABLET PO SCH (08:47)
[2019-05-25] MEDS: CALCITRIOL 0.25 MCG CAPSULE PO SCH (08:48)
--- NOTE | 2019-05-25 09:00 | NUR ---
DR RHYS JENKINS AWARE THAT PATIENT IV SITE HAS INFILTERATED AND SO FAR WE HAVE BEEN UNABLE TO RESTART AND WONDERED IF WE COULD ORDER A MID LINE AND HE STATED WILL MAKE THE DECISION WHEN HE GETS HERE PATIENT IS ON IVF BUT HIS IV ANTIBIOTICS IS NOT DUE UNTIL 1400 TODAY.
[2019-05-25 11:21] VITALS: BP 125/50
--- NOTE | 2019-05-25 12:15 | NUR ---
DR RHYS JENKINS HERE SPOKE WITH PATIENTS SON AND WENT OVER THE PLAN OF CARE AND HE EXPRESSED UNDERSTANDING.
[2019-05-25] MEDS: POTASSIUM CHLORIDE 40 MEQ in IV D5 1/2 NS 1000 ML 1,000 ML IV PRN (12:57)
--- NOTE | 2019-05-25 12:59 | NUR ---
DR RHYS JENKINS HERE AND STATED THAT IT WAS OKAY TO INSERT A MID LINE SO THE PROBATION OFFICER GAUTAM HERE AND STATED THAT HE WILL ATTEMPT TO INSERT A PERIPHERAL LINE FIRST BEFORE HE CALLS FOR A MID LINE NURSE SO HE INSERTED A GAUGE 20 TO THE PATIENTS LEFT THUMB SECURED WITH TAPE AND IVF CONTINUED ORDERED.
[2019-05-25 15:23] VITALS: BP 105/58
--- NOTE | 2019-05-25 16:39 | NUR ---
AWAKE ALERT TO SELF MUMBLING INCOHERENTLY ALL NEEDS ANTICIPATED AND SATISFIED REMAIN ON IV ANTIBIOTICS WITH NO ADVERSE OR ALLERGIC REACTIONS AT THIS TIME TURNED AND REPOSITIONED Q2H HEELS FLOATED MADE COMFORTABLE WILL CONTINUE TO OBSERVE.
--- NOTE | 2019-05-25 18:36 | NUR ---
RESTING WITH NO DISTRESS AT THIS TIME.
[2019-05-25 20:38] VITALS: BP 92/46
[2019-05-25] MEDS: SIMVASTATIN 40 MG TABLET PO SCH (21:19)
[2019-05-25] MEDS: ARIPIPRAZOLE 10 MG TABLET PO SCH (21:19)
[2019-05-26 00:04] VITALS: BP 110/52
[2019-05-26 04:00] VITALS: BP 122/68
[2019-05-26] MEDS: POTASSIUM CHLORIDE 40 MEQ in IV D5 1/2 NS 1000 ML 1,000 ML IV PRN ×2 (04:53→19:24)
[2019-05-26] MEDS: CEFEPIME HCL 2 G in IV DEXTROSE 5% 100 ML IV SCH ×3 (05:47→21:16)
[2019-05-26] MEDS: LEVOTHYROXINE SODIUM 200 MCG TABLET PO SCH (06:09)
[2019-05-26 07:12] LABS: BASOPHILS # (AUTO) 0.1 K/uL (0.0-8.0); EOSINOPHILS # (AUTO) 0.2 K/uL (0.0-0.7); EOSINOPHILS % (AUTO) 3.3 % (0.0-7.0); HEMATOCRIT 39.5 % (31.2-41.9); HEMOGLOBIN 12.8 g/dL (10.9-14.3); LYMPHOCYTES # (AUTO) 1.6 K/uL (20.0-40.0); LYMPHOCYTES % (AUTO) 26.5 % (20.5-51.5); MEAN CORPUSCULAR HGB CONC 32 g/dL (32.3-35.6); MEAN CORPUSCULAR VOLUME 86.4 fL (75.5-95.3); MONOCYTES # (AUTO) 0.4 K/uL (2.0-10.0); MONOCYTES % (AUTO) 6.6 % (0.0-11.0); NEUTROPHILS # (AUTO) 3.7 K/uL (1.8-8.9); NEUTROPHILS % (AUTO) 62.6 % (38.5-71.5); PLATELET COUNT (AUTO) 183 K/uL (179-408); RED BLOOD CELL COUNT(AUTO) 4.57 MIL/uL (3.63-4.92)
[2019-05-26 07:14] LABS: CREATININE 0.8 mg/dL (0.6-1.3); MAGNESIUM 1.5 mg/dL (1.8-2.4); POTASSIUM 3.6 mmol/L (3.5-5.1)
[2019-05-26] MEDS: PRAMIPEXOLE 1 MG TABLET PO SCH ×3 (08:25→17:02)
[2019-05-26] MEDS: CARBIDOPA/LEVODOPA 25-100MG TABLET PO SCH ×4 (08:26→20:54)
[2019-05-26] MEDS: DIGOXIN 250 MCG TABLET PO SCH (08:26)
[2019-05-26] MEDS: MULTIVITAMINS,THERAPEUTIC TABLET PO SCH (08:26)
[2019-05-26] MEDS: FAMOTIDINE 20 MG TABLET PO SCH ×2 (08:26→17:02)
[2019-05-26] MEDS: SERTRALINE HCL 100 MG TABLET PO SCH (08:26)
[2019-05-26] MEDS: TOPIRAMATE 25 MG TABLET PO SCH ×2 (08:27→20:54)
[2019-05-26] MEDS: METOPROLOL SUCCINATE XL 50 MG TAB.SR.24H PO SCH (08:27)
[2019-05-26] MEDS: CALCITRIOL 0.25 MCG CAPSULE PO SCH (08:35)
[2019-05-26] MEDS: MAGNESIUM SULFATE/D5W 100 ML IV SCH ×2 (11:25→12:40)
[2019-05-26 11:39] VITALS: BP 114/53
[2019-05-26 15:02] VITALS: BP 92/39
[2019-05-26 15:03] VITALS: BP 137/77
--- NOTE | 2019-05-26 19:00 | NUR ---
PT. COMPLIANT WITH PLAN OF CARE. PT. TOOK ALL MEDICATION. PT. DENIES SOB/ DIFFICULTY BREATHING. PT. DENIES PAIN/ DISCOMFORT. SAFETY MEASURES IN PLACE. ALL NEEDS MET. CALL LIGHT WITHIN REACH. WILL ENDORSE TO PM NURSE
[2019-05-26 19:30] VITALS: BP 98/43
[2019-05-26] MEDS: ARIPIPRAZOLE 10 MG TABLET PO SCH (20:54)
[2019-05-26] MEDS: SIMVASTATIN 40 MG TABLET PO SCH (20:54)
[2019-05-27] VITALS: BP 101/41
[2019-05-27 04:59] VITALS: BP 109/46
[2019-05-27] MEDS: CEFEPIME HCL 2 G in IV DEXTROSE 5% 100 ML IV SCH ×2 (05:37→14:00)
[2019-05-27] MEDS: LEVOTHYROXINE SODIUM 200 MCG TABLET PO SCH (06:00)
--- NOTE | 2019-05-27 06:03 | NUR ---
patient received lying in bed, a/o x1. no signs of acute distress and v/s stable throughout shift. BS low at 52 at beginning of shift. 10% dextrose administered from Pyxis instead of D50 dextrose-OOS. rechecked BS 1 hour later and at 119. Insulin and Lantus held due to low BS. patient started on D5 1/2 NS and NS discontinued. mild agitation and anxiety throughout night. patient ripped out tele monitor stickers a few times, but replaced back on. safety and comfort measures provided at all times. bed in lowest position, side rails up x2, and bed alarm on. patient currently in stable condition. V-pacing on tele monitor. BS at 50 in AM. Dextrose 10% administering currently. will continue plan of care and endorse accordingly to morning nurse. Addendum: 05/27/19 at 0630 by MIKEL ANGEL RN correction: wrong patient notes. please disregard notes.
--- NOTE | 2019-05-27 06:30 | NUR ---
patient received lying in bed, a/o x1. no signs of acute distress and v/s stable throughout shift. safety and comfort measures provided at all times. bed in lowest position, side rails up x2, bed alarm on. all needs met and all medications administered, patient tolerated well. A fib on tele monitor. will continue to monitor and endorse to morning nurse accordingly.
[2019-05-27 08:00] VITALS: BP 110/62
--- NOTE | 2019-05-27 08:00 | NUR ---
Received pt. resting in bed alert oriented x1. Pt on tele monitor. Pt. IV in L thumb infiltrated. Will removed IV and try to insert new one. Pt. on room air. Pt. denies pain/ discomfort. pt. denies SOB/ difficulty breathing. safety measures in place. call light within reach. will continue to monitor pt.
[2019-05-27] MEDS: CARBIDOPA/LEVODOPA 25-100MG TABLET PO SCH ×3 (08:27→17:20)
[2019-05-27] MEDS: PRAMIPEXOLE 1 MG TABLET PO SCH ×3 (08:27→17:21)
[2019-05-27] MEDS: FAMOTIDINE 20 MG TABLET PO SCH ×2 (08:27→17:20)
[2019-05-27] MEDS: METOPROLOL SUCCINATE XL 50 MG TAB.SR.24H PO SCH (08:28)
[2019-05-27] MEDS: TOPIRAMATE 25 MG TABLET PO SCH (08:28)
[2019-05-27] MEDS: SERTRALINE HCL 100 MG TABLET PO SCH (08:28)
[2019-05-27] MEDS: CALCITRIOL 0.25 MCG CAPSULE PO SCH (08:28)
[2019-05-27] MEDS: MULTIVITAMINS,THERAPEUTIC TABLET PO SCH (08:28)
[2019-05-27] MEDS: DIGOXIN 250 MCG TABLET PO SCH (08:28)
--- NOTE | 2019-05-27 10:46 | NUR ---
aware of pt's IV infiltrated. 3 nurses attempted to put in IV with no luck. No new orders from Dr. maynard. He stated he was going to look at the cultures. Attempted to feed pt. breakfast she did not want breakfast at this time and appeared sleepy. Will try again. Safety measures in place. Call light within reach. Will continue to monitor pt.
[2019-05-27 11:00] VITALS: BP 112/64
[2019-05-27] MEDS ORDERED: LEVO500T2 PO (11:31)
[2019-05-27 15:03] LABS: BASOPHILS # (AUTO) 0.1 K/uL (0.0-8.0); BASOPHILS % (AUTO) 0.9 % (0.0-2.0); EOSINOPHILS # (AUTO) 0.1 K/uL (0.0-0.7); EOSINOPHILS % (AUTO) 2.4 % (0.0-7.0); HEMATOCRIT 37.6 % (31.2-41.9); HEMOGLOBIN 12.4 g/dL (10.9-14.3); LYMPHOCYTES # (AUTO) 1.8 K/uL (20.0-40.0); LYMPHOCYTES % (AUTO) 30.3 % (20.5-51.5); MEAN CORPUSCULAR HEMOGLOBIN 28.4 uug (24.7-32.8); MEAN CORPUSCULAR HGB CONC 33 g/dL (32.3-35.6); MEAN CORPUSCULAR VOLUME 85.6 fL (75.5-95.3); MONOCYTES # (AUTO) 0.5 K/uL (2.0-10.0); MONOCYTES % (AUTO) 7.6 % (0.0-11.0); NEUTROPHILS # (AUTO) 3.5 K/uL (1.8-8.9); NEUTROPHILS % (AUTO) 58.8 % (38.5-71.5); PLATELET COUNT (AUTO) 171 K/uL (179-408); RED BLOOD CELL COUNT(AUTO) 4.39 MIL/uL (3.63-4.92)
[2019-05-27 15:05] LABS: CREATININE 0.7 mg/dL (0.6-1.3); MAGNESIUM 1.6 mg/dL (1.8-2.4); PHOSPHOROUS 4.6 mg/dL (2.5-4.9); POTASSIUM 3.6 mmol/L (3.5-5.1)
[2019-05-27 16:00] VITALS: BP 96/50
--- NOTE | 2019-05-27 17:51 | NUR ---
Tried to get a hold of JOSE Khanna regarding prescription being sent to the wrong pharmacy with no response. Pt.'s son said that he would ask her pcp for a prescription of the antibiotics if Clemencia is unable to change preferred pharmacy.
--- NOTE | 2019-05-27 17:52 | NUR ---
Pt. ready for discharge. ID band removed. IV removed. Picture taken of sacral area. Belongings given back to pt. Pt. in stable condition. 2 nurses signed belongings list and discharged paperwork as pt. is unable to sign. Awaiting ambulance for medical transportation. Son at bedside updated on plan.
--- NOTE | 2019-05-27 19:00 | NUR ---
Pt. discharged home via ambulance with son at bedside. Pt.'s son wants prescription sent to correct pharmacy which i input and put as preferred pharmacy on EMAR. It is called [facility]. Endorsed to PM nurse to let charge or AM nurse know to have [employer] Clemencia send prescription to correct pharmacy.
== END 2019-05-27 19:32 | disposition home or self-care (01) | DRG 690 ==
LOC: ER 17:04 → TELE3 19:39 → MEDSURG3 05-27 14:30
PROVIDERS: ADMIT Nurse Practitioner Acute Care; ATTEND Nurse Practitioner Acute Care
DX: N39.0 Urinary tract infection, site not specified (principal); I48.20 Chronic atrial fibrillation, unspecified; I69.354 Hemiplegia and hemiparesis following cerebral infarction affecting left non-dominant side; I42.9 Cardiomyopathy, unspecified; D68.59 Other primary thrombophilia; E87.0 Hyperosmolality and hypernatremia; E86.0 Dehydration; Z87.440 Personal history of urinary (tract) infections; E03.9 Hypothyroidism, unspecified; B96.89 Other specified bacterial agents as the cause of diseases classified elsewhere; R31.29 Other microscopic hematuria; G20 Parkinson's disease; Z79.01 Long term (current) use of anticoagulants; F02.80 Dementia in other diseases classified elsewhere, unspecified severity, without behavioral disturbance, psychotic disturbance, mood disturbance, and anxiety; R62.7 Adult failure to thrive; Z87.891 Personal history of nicotine dependence; Z82.61 Family history of arthritis; Z82.49 Family history of ischemic heart disease and other diseases of the circulatory system; Z79.899 Other long term (current) drug therapy; F32.9 Major depressive disorder, single episode, unspecified; E83.42 Hypomagnesemia; K83.8 Other specified diseases of biliary tract; E89.2 Postprocedural hypoparathyroidism; Z79.890 Hormone replacement therapy; E87.6 Hypokalemia; S31.000A Unspecified open wound of lower back and pelvis without penetration into retroperitoneum, initial encounter; X58.XXXA Exposure to other specified factors, initial encounter; Y92.019 Unspecified place in single-family (private) house as the place of occurrence of the external cause
CPT/HCPCS: 36415; 70030-TC; 71045; 83605; 83735; 84100; 84443; 85025; 85730; 87040; 87077; 87086; 93005; 93307; A4663; C1758; G0378; J0692; J0696; J3475; J3480; J3490; J7030; J7040; J7050; J7060